=== PATIENT | female | born 1990 | race Caucasian/White ===

== ENCOUNTER → 2018-08-13 12:46 | Outpatient (CLI) | payer BC, SELFPAY ==
[2016-05-10 12:34] VITALS: BMI 30.5
[2018-08-13 14:15] LABS: Absolute Lymphocyte Count 1.57 X10^3/ul (0.83-4.51); Absolute Neutrophil Count 7.3 X10^3/uL (2.0-7.7); Basophil# 0.03 X10^3/uL; Basophil% 0.3 % (0-1); Eosinophil# 0.08 X10^3/uL; Eosinophils% 0.8 % (0-5); Hematocrit 41.8 % (37-47); Hemoglobin 14.1 g/dl (12.0-15.0); Lymphocyte # 1.57 X10^3/ul (4.0); Lymphocyte % 16.5 % (19-41); Mean Corp Hgb Conc 33.7 g/gl (32-36); Mean Corpuscular Hgb 28.3 pg (27.0-32.0); Mean Corpuscular Volume 83.9 fL (81-99); Mean Platelet Vol. 10.9 fl (6.2-12.0); Monocyte# 0.55 X10^3/uL; Monocyte% 5.8 % (0-10); Neutrophil # 7.26 X10^3/uL (2.7-7.7); Neutrophil % 76.4 % (47-70); Platelet Count 303 K/mm3 (150-450); RBC Distribution Width CV 13.8 % (11.6-14.6); RBC Distribution Width SD 42.5 fl (35.1-43.9); Red Blood Count 4.98 M/mm3 (4.2-5.4); White Blood Count 9.5 K/mm3 (4.4-11.0)
[2018-08-13 14:20] LABS: POSITIVE COUNT NO; POSITIVE DIFFERENTIAL NO; POSITIVE MORPHOLOGY NO
[2018-08-13 14:29] LABS: AST(SGOT) 8 U/L (15-37); Alanine Aminotransfer ALT/SGPT 16 U/L (13-56); Albumin, Serum 3.8 g/dL (3.2-5.0); Alkaline Phosphatase 72 U/L (45-117); Anion Gap 9 (5-15); BUN 11 mg/dL (7-18); Calcium,Total 8.6 mg/dL (8.5-10.1); Chloride 107 mmol/L (98-107); Creatinine, Serum 0.69 mg/dL (0.55-1.02); EST Glomerular Filtration Rate 106 mL/min (>60); Est Glom Filt Rate - Afr Amer 128 mL/min (>60); Globulin 3.9 g/dL (2.2-4.2); Glucose 95 mg/dL (74-106); Potassium 4.1 mmol/L (3.5-5.1); Protein, Total 7.7 g/dL (6.4-8.2); Sodium Level 139 mmol/L (136-145); Thyroid Stim Hormone (TSH) 2.99 uIU/mL (0.358-3.74)
== END ==
PROVIDERS: Family Provider Family Medicine; PCP Family Medicine; Referring Provider Nurse Practitioner Adult Health; Visit Provider Nurse Practitioner Adult Health
DX: R53.83 Other fatigue (principal)
CPT/HCPCS: 36415; 80053; 84443; 85025

== ENCOUNTER 2019-09-18 21:53 | Emergency (ER) | payer BC, SELFPAY ==
[2018-09-11 16:11] VITALS: BMI 30.5
[2019-09-18 21:54] VITALS: BP 144/78; PULSE 88; RESP 17; TEMP 36.2; O2SAT 99; BMI 37.9
--- NOTE | 2019-09-18 22:11 | CT_ITS ---
STUDY: CT ABDOMEN AND PELVIS WITHOUT CONTRAST REASON FOR EXAM: Female, 29 years old. RT FLANK PAIN -- HX:KIDNEY STONES,OVARIAN CYST RADIATION DOSAGE (If Supplied By Facility): CTDIvol = ( 19.66 ) mGy, DLP = ( 1046.26 ) mGycm TECHNIQUE: Transaxial images were obtained from the dome of the diaphragm to the symphysis pubis without oral contrast, and without intravenous contrast. Sagittal and coronal images were reconstructed. Individualized dose optimization techniques were used for this CT. COMPARISON: None. FINDINGS: The visualized lung bases are unremarkable. The visualized portions of the heart are within normal limits. Normal liver. Normal gallbladder and extrahepatic biliary system. Normal spleen. Normal pancreas. Normal bilateral adrenal glands. There is moderate right hydronephrosis and right hydroureter. There is a 2.7 mm calculus within the mid right ureter at the L3 level. There is small anterior umbilical hernia. Normal left kidney. No renal calculi Normal visualized stomach. Normal small intestine. There is moderate colonic fecal load. There are punctate appendicoliths otherwise normal appendix. No CT evidence for appendicitis Normal abdominal aorta. Normal inferior vena cava. Normal retroperitoneum. There are vascular calcifications within the pelvis. Normal urinary bladder. Normal abdominal wall. Normal osseous structures. CT/Abdomen/Pelvis without Cont IMPRESSION: moderate right hydronephrosis and right hydroureter. There is a 2.7 mm calculus within the mid right ureter at the L3 level Moderate colonic fecal load Punctate appendicoliths otherwise normal appendix, no evidence for appendicitis Electronically Signed: Jay Phillip, at 23:04 EDT Tel , Service support ,
--- NOTE | 2019-09-18 22:12 | ED.VIS.GEN ---
History of Present Illness Chief Complaint: Flank Pain Informant: Patient Onset: Today Narrative: Sudden right flank pain 45 minutes prior to arrival. Pain mildly radiates to the groin, states burning intense sensation. Mild nausea that is improving. Currently symptoms slightly improving. No history of kidney stones. Last menstrual period a month ago. Denies dysuria or frequency states that urine seems a little darker. No fevers chills or sweats. Denies any past medical history. Denies any surgical history. Prior similar symptoms: No Past Medical History - Allergies and Home Meds Allergies/Adverse Reactions: Allergies No Known Allergies Allergy (Verified 09/18/19 21:53) Primary Care Physician: Naeem Romero MD [Primary Care Provider] - Past Medical History: None Smoking Status: Former smoker Review of Systems General: Denies: Chills, Fever, Sweats Eyes: Denies: Visual changes - bilaterally, Diplopia ENT: Denies: Rhinorrhea, Sore throat Cardiovascular: Denies: Chest pain, Palpitations Respiratory: Denies: Dyspnea, Cough, Dyspnea on exertion Gastrointestinal: Denies: Abdominal pain, Nausea, Vomiting, Diarrhea, Melena, Hematochezia Genitourinary: Denies: Dysuria, Hematuria, Frequency Musculoskeletal: Reports: Back pain. Denies: Extremity Pain Skin: Denies: Rash, Wounds Neurological: Denies: Headache, Weakness, Numbness Physical Exam Vital Signs/Narrative: Vital Signs Temp Pulse Resp BP Pulse Ox 09/18/19 21:54 97.1 F L 88 17 144/78 H 99 Inital Vital Signs reviewed: Yes General: Well nourished, Well developed, No Acute Distress Head: Normocephalic, Atraumatic Eyes: Perrl, EOMI ENT: Moist mucous membranes, No rhinorrhea Neck: Supple, Nontender Cardiovascular: Regular rate, Regular rhythm, No murmurs Respiratory: No distress, CTA bilaterally, Chest nontender Abdomen: Soft, Nontender, Nondistended, Normal bowel sounds Back: Nontender, Normal Inspection. Negative for: CVA tenderness Extremities: Nontender, No edema Skin: Normal color, No rash Neurological: Alert, Oriented x3, Cranial nerves II-XII grossly intact, Normal Strength, Normal Sensation Psychological: Normal affect, Normal Mood Diagnostic/Tx/Re-eval Clinical Impression(s) from Imaging Studies Abdomen/Pelvis CT 09/18/19 22:11 IMPRESSION: moderate right hydronephrosis and right hydroureter. There is a 2.7 mm calculus within the mid right ureter at the L3 level Moderate colonic fecal load Punctate appendicoliths otherwise normal appendix, no evidence for appendicitis Electronically Signed: Jay Phillip, at 23:04 EDT Tel , Service support , Abnormal Lab Results 09/18/19 09/18/19 09/18/19 22:00 22:00 22:15 WBC 11.2 H RBC 4.48 Hgb 12.7 Hct 38.4 MCV 85.7 MCH 28.3 MCHC 33.1 RDW Std Deviation 40.2 RDW Coeff of Sumit 12.9 Plt Count 279 MPV 10.9 Immature Gran % (Auto) 0.400 Neut % (Auto) 64.8 Lymph % (Auto) 24.8 Noble % (Auto) 6.3 Eos % (Auto) 3.2 Baso % (Auto) 0.5 Absolute Neuts (auto) 7.2 Absolute Lymphs (auto) 2.77 Nucleated RBC % 0 Sodium Potassium Chloride Carbon Dioxide Anion Gap BUN Creatinine Estim Creat Clear Calc Est GFR (MDRD) Af Amer Est GFR (MDRD) Non-Af BUN/Creatinine Ratio Glucose Calcium Urine Color Yellow Urine Clarity Cloudy Urine pH 6.0 Ur Specific Wentworth 1.025 Urine Protein 30 H Urine Glucose (UA) Normal Urine Ketones 5 H Urine Occult Blood 250 H Urine Nitrite Negative Urine Bilirubin Negative Urine Urobilinogen 1 H Ur Leukocyte Esterase 25 H Urine RBC 50-100 SEEN Urine WBC 0-5 SEEN Ur Squamous Epith Cells 0-5 SEEN Urine Bacteria 0 SEEN Urine Mucus 0 SEEN Urine Test Negative 09/18/19 22:15 WBC RBC Hgb Hct MCV MCH MCHC RDW Std Deviation RDW Coeff of Sumit Plt Count MPV Immature Gran % (Auto) Neut % (Auto) Lymph % (Auto) Noble % (Auto) Eos % (Auto) Baso % (Auto) Absolute Neuts (auto) Absolute Lymphs (auto) Nucleated RBC % Sodium 138 Potassium 3.8 Chloride 109 H Carbon Dioxide 23.0 Anion Gap 6 BUN 12 Creatinine 0.73 Estim Creat Clear Calc 104.53 Est GFR (MDRD) Af Amer 119 Est GFR (MDRD) Non-Af 99 BUN/Creatinine Ratio 16.5 Glucose 96 Calcium 8.5 Urine Color Urine Clarity Urine pH Ur Specific Wentworth Urine Protein Urine Glucose (UA) Urine Ketones Urine Occult Blood Urine Nitrite Urine Bilirubin Urine Urobilinogen Ur Leukocyte Esterase Urine RBC Urine WBC Ur Squamous Epith Cells Urine Bacteria Urine Mucus Urine Test - Medical Decision Making Patient nontoxic. Sudden symptoms renal stone protocol initiated. Symptoms relieved with Toradol. Labs are stable urine noted hematuria. There was leukocytes however negative nitrites or white blood cells. I did send for urine. CT scan confirms a 2.7 mm mid ureteral stone with hydro. Patient be sent home with urine strainer prescription for medications for symptom control. Follow-up with urology. Strict signs and symptoms discussed to return. All questions were answered. ED Disposition - Plan for ED Patient: Disposition: Home or Assisted Living Diagnosis: Urolithiasis, Hematuria Instructions: ED Hematuria, ED Renal Stone w Colic Prescriptions: Ibuprofen 600 mg PO 4X/DAY PRN #20 tab PRN Reason: Pain Or Fever Transmission Status: Pending to [id number] Oxycodone HCl/Acetaminophen [Percocet 5/325] 1 tablet PO Q6H PRN PRN 3 Days #12 tablet PRN Reason: Pain Transmission Status: Sent to [id number] Ondansetron [Zofran Odt] 4 mg PO Q8H PRN PRN #10 tab PRN Reason: Nausea Transmission Status: Pending to [id number] Referrals: Naeem Romero MD [Primary Care Provider] - Pat Pedraza MD [STAFF PHYSICIAN] - 3-5 Days
[2019-09-18] MEDS: Ketorolac 30 MG/ML Syringe IV (22:20)
[2019-09-18] MEDS: 0.9% Normal Saline 1,000 ML 250 ML IV (22:20)
[2019-09-18 22:22] LABS: Bacteria 0 SEEN /hpf (None Seen); Mucous, Urine 0 SEEN /hpf (<or=2+)
[2019-09-18 22:23] LABS: Absolute Lymphocyte Count 2.77 X10^3/uL (0.83-4.51); Absolute Neutrophil Count 7.2 X10^3/uL (2.0-7.7); Basophil# 0.06 X10^3/uL; Basophil% 0.5 % (0-1); Eosinophil# 0.36 X10^3/uL; Eosinophils% 3.2 % (0-5); Hematocrit 38.4 % (37-47); Hemoglobin 12.7 g/dL (12.0-15.0); Lymphocyte # 2.77 X10^3/ul (4.0); Lymphocyte % 24.8 % (19-41); Mean Corp Hgb Conc 33.1 g/dL (32-36); Mean Corpuscular Hgb 28.3 pg (27.0-32.0); Mean Corpuscular Volume 85.7 fL (81-99); Mean Platelet Vol. 10.9 fl (6.2-12.0); Monocyte% 6.3 % (0-10); NRBC Flagged by Analyzer 0 % (0-5); Neutrophil # 7.22 X10^3/uL (2.7-7.7); Neutrophil % 64.8 % (47-70); Platelet Count 279 K/mm3 (150-450); RBC Distribution Width CV 12.9 % (11.6-14.6); RBC Distribution Width SD 40.2 fl (35.1-43.9); Red Blood Count 4.48 M/mm3 (4.2-5.4); White Blood Count 11.2 K/mm3 (4.4-11.0)
[2019-09-18 22:24] LABS: Color, Urine Yellow (Yellow); Glucose, Dipstick Normal (Normal); Ketone-Dipstick 5 mg/dl (Negative); Leukocyte Esterase-Dipstick 25 /ul (Negative); Nitrite-Dipstick Negative (Negative); Occult Blood-Urine 250 /ul (Negative); Protein-Dipstick 30 mg/dl (Negative); Specific Gravity, Urine 1.025 (1.002-1.030); Urine Bilirubin Dipstick Negative (Negative); Urine Clarity Cloudy (Clear); Urine Urobilinogen 1 mg/dl (Normal)
[2019-09-18 22:26] LABS: Internal QC Validated? YES +Cl - CLEAR BKGD; Pregnancy, Urine Negative Negative
[2019-09-18 22:36] LABS: Red Blood Cells-Urine 50-100 SEEN /hpf (0-5); Squamous Epithelial Cells - UA 0-5 SEEN /hpf (5-10); White Blood Cells 0-5 SEEN /hpf (0-5)
[2019-09-18 22:41] LABS: Anion Gap 6 (5-15); BUN 12 mg/dL (7-18); BUN/Creat Ratio 16.5 RATIO (10-20); Calcium,Total 8.5 mg/dL (8.5-10.1); Chloride 109 mmol/L (98-107); Creatinine, Serum 0.73 mg/dL (0.55-1.02); EST Glomerular Filtration Rate 99 mL/min (>60); Est Glom Filt Rate - Afr Amer 119 mL/min (>60); Estimated Creatinine Clearance 104.53 ml/min; Glucose 96 mg/dL (74-106); Potassium 3.8 mmol/L (3.5-5.1); Sodium Level 138 mmol/L (136-145)
[2019-09-18 23:47] VITALS: BP 136/70; PULSE 85; RESP 16; O2SAT 97
== END 2019-09-18 23:52 | disposition home or self-care (01) ==
PROVIDERS: Emergency Provider Emergency Medicine; PCP Family Medicine
DX: N13.2 Hydronephrosis with renal and ureteral calculous obstruction (principal); Z87.891 Personal history of nicotine dependence
CPT/HCPCS: 74176; 80048; 81001; 81025; 85025; 87086; 87088; 96361; 96374; 99283; J7030; A4216

== ENCOUNTER → 2019-09-24 12:04 | Outpatient (CLI) | payer BC, SELFPAY ==
[2019-09-18 21:54] VITALS: BMI 37.9
[2019-09-24 15:47] LABS: AST(SGOT) 6 U/L (15-37); Alanine Aminotransfer ALT/SGPT 14 U/L (13-56); Albumin, Serum 3.8 g/dL (3.2-5.0); Alkaline Phosphatase 78 U/L (45-117); Anion Gap 8 (5-15); BUN 12 mg/dL (7-18); Calcium,Total 8.5 mg/dL (8.5-10.1); Chloride 105 mmol/L (98-107); Creatinine, Serum 0.71 mg/dL (0.55-1.02); EST Glomerular Filtration Rate 102 mL/min (>60); Est Glom Filt Rate - Afr Amer 124 mL/min (>60); Glucose 88 mg/dL (74-106); Potassium 3.6 mmol/L (3.5-5.1); Protein, Total 7.8 g/dL (6.4-8.2); Sodium Level 138 mmol/L (136-145)
[2019-09-24 15:50] LABS: Absolute Lymphocyte Count 2.05 X10^3/uL (0.83-4.51); Absolute Neutrophil Count 5.6 X10^3/uL (2.0-7.7); Basophil# 0.05 X10^3/uL; Basophil% 0.6 % (0-1); Eosinophil# 0.34 X10^3/uL; Hematocrit 43.2 % (37-47); Lymphocyte # 2.05 X10^3/ul (4.0); Lymphocyte % 24.2 % (19-41); Mean Corp Hgb Conc 32.4 g/dL (32-36); Mean Corpuscular Hgb 28.3 pg (27.0-32.0); Mean Corpuscular Volume 87.4 fL (81-99); Mean Platelet Vol. 11.6 fl (6.2-12.0); Monocyte# 0.45 X10^3/uL; Monocyte% 5.3 % (0-10); NRBC Flagged by Analyzer 0 % (0-5); Neutrophil # 5.56 X10^3/uL (2.7-7.7); Neutrophil % 65.5 % (47-70); Platelet Count 295 K/mm3 (150-450); RBC Distribution Width CV 13.2 % (11.6-14.6); RBC Distribution Width SD 41.1 fl (35.1-43.9); Red Blood Count 4.94 M/mm3 (4.2-5.4); White Blood Count 8.5 K/mm3 (4.4-11.0)
[2019-09-25 09:52] LABS: Hepatitis B Surface Antibody Non-Reactive; Hepatitis B Surface Antigen Non-Reactive (Nonreactive); Hepatitis C Antibody Non-Reactive (Nonreactive)
[2019-09-29 20:05] LABS: QNTFERON TB Mitogen Value 8.16 IU/mL (.); QNTFERON TB Nil Value 0.02 IU/mL (.); QNTFERON TB1+ Ag Value 0.01 IU/mL (.); QNTFERON TB2+ Ag Value 0.03 IU/mL (.)
[2019-09-30 00:40] LABS: Hepatitis B Core Ab Total Negative (Negative); QNTIFERON TB Positive Criteria Negative (Negative)
== END ==
PROVIDERS: PCP Family Medicine; Referring Provider Dermatology; Visit Provider Dermatology
DX: L40.0 Psoriasis vulgaris (principal); D48.5 Neoplasm of uncertain behavior of skin
CPT/HCPCS: 36415; 80053; 85025; 86480; 86704; 86706; 86803; 87340

== ENCOUNTER → 2020-08-11 | Outpatient (CLI) | payer BC, SELFPAY | END | disposition home or self-care (01) | LOC: LABSPEC 15:13 | PROVIDERS: PCP Family Medicine; Referring Provider Family Medicine; Visit Provider Family Medicine | DX: N39.0 Urinary tract infection, site not specified (principal) | CPT/HCPCS: 87086; 87088 ==

== ENCOUNTER 2021-06-01 12:28 | Outpatient (CLI) | payer BC, SELFPAY ==
[2021-06-01 15:52] LABS: Anion Gap 6 (5-15); BUN 10 mg/dL (7-18); BUN/Creat Ratio 13.8 RATIO (10-20); Calcium,Total 8.7 mg/dL (8.5-10.1); Chloride 105 mmol/L (98-107); Cholesterol 210 mg/dL (200); Creatinine, Serum 0.73 mg/dL (0.55-1.02); EST Glomerular Filtration Rate 98 mL/min (>60); Est Glom Filt Rate - Afr Amer 118 mL/min (>60); Glucose 111 mg/dL (74-106); High Density Lipoprotein 48 mg/dL; Potassium 3.9 mmol/L (3.5-5.1); Sodium Level 137 mmol/L (136-145); Thyroid Stim Hormone (TSH) 3.26 uIU/mL (0.358-3.74); Triglycerides 115 mg/dL; Very Low Density Lipoprotein 23 mg/dL (5-40)
== END 2021-06-01 23:59 | disposition home or self-care (01) ==
LOC: MFPLAB 12:31
PROVIDERS: PCP Family Medicine; Referring Provider Family Medicine; Visit Provider Family Medicine
DX: E66.9 Obesity, unspecified (principal)
CPT/HCPCS: 36415; 80048; 80061; 82533; 84443

== ENCOUNTER 2021-07-13 10:01 | Outpatient (RCR) | payer BC, SELFPAY | END 2021-07-16 23:59 | LOC: NS 10:01 | PROVIDERS: PCP Family Medicine; Visit Provider Family Medicine | DX: Z71.3 Dietary counseling and surveillance (principal); E66.9 Obesity, unspecified; Z68.39 Body mass index [BMI] 39.0-39.9, adult | CPT/HCPCS: 97802 ==

== ENCOUNTER 2021-09-10 23:06 | Emergency (ER) | payer BC, SELFPAY ==
[2021-09-10 23:07] VITALS: BP 143/82; PULSE 104; RESP 20; TEMP 35.7; O2SAT 99; BMI 40.8
--- NOTE | 2021-09-10 23:13 | ED.VIS.LOWEX ---
HPI History of Present Illness HPI Narrative: Patient presents with left foot injury that occurred tonight. Patient states she twisted her left foot and fell. Patient states her pain is mainly over the lateral aspect of the left foot over the fifth metatarsal area. Patient states she fell onto her right leg and has an abrasion to the lateral aspect of the right upper leg. Patient is unsure of her last tetanus. Patient states her foot pain is worse with dorsiflexion. Patient denies any paresthesias or weakness. Patient denies any other injuries. Chief Complaint: Lower Extremity Injury Informant: patient Occured/Mechanism Mechanism/Context: Yes fall Onset/Context/Timing Onset: Today Context: Sudden Onset Location: Left foot Worsened by: Weightbearing, movement Relieved by: Rest Associated Symptoms Associated Symptoms: Negative for Parasthesia, Weakness or Loss of Funtion Narrative Tetanus Immunization: >10 years PFSH [facility] Medical History Psoriasis Home Medications tildrakizumab-asmn 100 mg/mL subcutaneous syringe (Meumya) mg subcut 09/10/21 [History Last Taken Unknown] Allergy/AdvReac Type Severity Reaction Status Date / Time No Known Allergies Allergy Verified 09/18/19 21:53 Surgical History no surgical history no surgical history Social History Smoking Status: Former smoker ROS ROS ED Constitutional Constitutional ED: Denies chills or fever(s) Eyes Eyes: Denies blurry vision or change in vision ENT ENT ED: Denies rhinorrhea or sore throat Cardiovascular Cardiovascular: Denies chest pain or palpitations Respiratory/Chest Respiratory/Chest: Denies cough or dyspnea Gastrointestinal Gastrointestinal: Denies nausea or vomiting Genitourinary Genitourinary ED: Denies dysuria or hematuria Musculoskeletal Musculoskeletal: Denies back pain or neck pain Integumentary Denies abscess or rash Neurologic Neurologic: Denies headache(s) or weakness Allergic/Immunologic Allergic/Immunologic ED: Denies mouth swelling or urticaria EXAM Physical Exam Const Vital Signs: 09/10/21 23:07 Temperature 96.2 F L Temperature Source Temporal Pulse Rate 104 H Respiratory Rate 20 H Blood Pressure 143/82 H Blood Pressure Mean 102 Pulse Ox 99 Oxygen Delivery Method Room Air Positive well nourished, well developed and obese General Appearance ED: well developed and NAD Nutritional Appearance: obese HEENT Reports moist mucous membranes Extremity Extremity Narrative: There is tenderness over the fourth and fifth metatarsals. There is no edema or ecchymosis. There is no bony crepitance or step-off. There is no tenderness over the distal fibula. There is no tenderness over the proximal fibula. Pedal pulses are equal bilaterally. Range of motion was slightly limited in dorsiflexion of the left ankle secondary to pain. Sensation was intact to light touch in all digits. Capillary refill was less than 2 seconds in all digits. There is a superficial abrasion over the anterior lateral aspect of the right upper fabian. There is no active bleeding. There is no erythema or warmth. There are no foreign bodies noted. Neuro oriented x3, CN's II-XII intact bilaterally, moves all extremities and no sensory deficits noted Sensorium / Orientation: alert Motor Exam: strength 5/5 throughout MDM MDM MDM Narrative Medical decision making narrative: Patient was given a tetanus booster. X-rays of the left foot were obtained. There are 3 views. On my interpretation, there is no acute fracture. There is no dislocation. There is no soft tissue swelling. Radiologist also interpreted the x-rays and agrees. Patient was advised of her findings. Patient was instructed to ice and elevate the left foot. Patient was given a walking boot. Patient was instructed to follow-up with her primary care physician in 5 to 7 days. Patient understood and was agreeable with the plan. All questions were answered. Radiography Diagnostic Testing: Clinical Impression(s) from Imaging Studies Foot X-Ray 09/10/21 23:30 IMPRESSION: No demonstrated fracture or malalignment. Electronically Signed: Robbie Gao MD (Brooks) at 23:51 EDT Reading Location ID and State: [facility] / [place] , Service support , Discharge Plan Triage Chief Complaint: Lower Extremity Injury ED Provider: Nima Rosario Dx/Rx/DC Orders Clinical Impression: Sprain of left foot, Abrasion of right lower leg Instructions: ED Abrasion, ED Foot Sprain Prescriptions: No Action Ilumya 100 mg/mL Syringe SUBCUT Rx Instructions: [id number] Primary Care Provider: Naeem Romero Referrals: Naeem Romero MD [Primary Care Provider] - 5-7 Days Disposition Disposition: Home, Self Care
--- NOTE | 2021-09-10 23:30 | RAD_ITS ---
STUDY: X-RAY - LEFT FOOT CLINICAL: Female, 31 years old. Injury/Pain TECHNIQUE: 30 view(s) of the foot. COMPARISON: None. FINDINGS: Normal talus, calcaneus, and tarsal bones. Normal visualized subtalar, talonavicular, calcaneocuboid, tarsal and tarsometatarsal articulations. Normal metatarsi. Normal metatarsophalangeal joint of the great toe. There is a bipartite tibial sesamoid. Normal interphalangeal joint of the great toe. Normal phalanges of the great toe. Normal second through fifth metatarsophalangeal joints. Normal interphalangeal joints and phalanges of the lesser toes. The soft tissue structures are unremarkable. RAD/Foot min 3 Views IMPRESSION: No demonstrated fracture or malalignment. Electronically Signed: Robbie Gao MD (Brooks) at 23:51 EDT ,
[2021-09-11 00:32] VITALS: BP 138/67; PULSE 79; RESP 18; O2SAT 95
== END 2021-09-11 00:32 | disposition home or self-care (01) ==
PROVIDERS: Emergency Provider Emergency Medicine; PCP Family Medicine; Visit Provider Emergency Medicine
DX: S93.602A Unspecified sprain of left foot, initial encounter (principal); Z68.41 Body mass index [BMI] 40.0-44.9, adult; S80.812A Abrasion, left lower leg, initial encounter; X50.1XXA Overexertion from prolonged static or awkward postures, initial encounter; W19.XXXA Unspecified fall, initial encounter; E66.9 Obesity, unspecified; Z87.891 Personal history of nicotine dependence; Z23 Encounter for immunization
CPT/HCPCS: 73630; 90471; 99284

== ENCOUNTER 2021-12-14 13:03 | Outpatient (RCR) | payer BC, SELFPAY | END 2021-12-16 23:59 | LOC: NS 13:03 | PROVIDERS: PCP Family Medicine; Referring Provider Family Medicine; Visit Provider Family Medicine | DX: Z71.3 Dietary counseling and surveillance (principal); E66.9 Obesity, unspecified; Z68.39 Body mass index [BMI] 39.0-39.9, adult | CPT/HCPCS: 97803 ==

== ENCOUNTER → 2022-02-21 | Outpatient (CLI) | payer BC, SELFPAY ==
[2022-02-24 08:09] LABS: QNTFERON TB Mitogen Value > 10.00 IU/mL (.); QNTFERON TB Nil Value 0.02 IU/mL (.); QNTFERON TB1+ Ag Value 0.02 IU/mL (.); QNTFERON TB2+ Ag Value 0.01 IU/mL (.)
[2022-02-24 13:33] LABS: Hepatitis B Core Ab Total Negative (Negative); QNTIFERON TB Positive Criteria Negative (Negative)
== END | disposition home or self-care (01) ==
LOC: MTLAB 09:18
PROVIDERS: PCP Family Medicine; Referring Provider Dermatology; Visit Provider Dermatology
DX: L40.0 Psoriasis vulgaris (principal)
CPT/HCPCS: 36415; 86480; 86704

== ENCOUNTER → 2022-11-30 | Outpatient (CLI) | payer BC, SELFPAY ==
[2022-11-30 10:40] LABS: Absolute Lymphocyte Count 2.37 X10^3/uL (0.83-4.51); Absolute Neutrophil Count 7.8 X10^3/uL (2.0-7.7); Basophil# 0.06 X10^3/uL; Basophil% 0.5 % (0-1); Eosinophil# 0.22 X10^3/uL; Hematocrit 43.6 % (37-47); Lymphocyte # 2.37 X10^3/ul (0.83-4.51); Lymphocyte % 21.1 % (19-41); Mean Corp Hgb Conc 32.1 g/dL (32-36); Mean Corpuscular Hgb 28.1 pg (27.0-32.0); Mean Corpuscular Volume 87.4 fL (81-99); Mean Platelet Vol. 10.8 fl (6.2-12.0); Monocyte% 6.2 % (0-10); NRBC Flagged by Analyzer 0 % (0-5); Neutrophil # 7.78 X10^3/uL (2.7-7.7); Neutrophil % 69.4 % (47-70); Platelet Count 349 K/mm3 (150-450); RBC Distribution Width CV 13.2 % (11.6-14.6); RBC Distribution Width SD 41.7 fl (35.1-43.9); Red Blood Count 4.99 M/mm3 (4.2-5.4); White Blood Count 11.2 K/mm3 (4.4-11.0)
[2022-11-30 11:15] LABS: Vitamin D,25 Hydroxy 15.8 ng/mL
[2022-11-30 11:28] LABS: Anion Gap 4 (5-15); BUN 12 mg/dL (7-18); BUN/Creat Ratio 16.6 RATIO (10-20); Calcium,Total 8.6 mg/dL (8.5-10.1); Chloride 107 mmol/L (98-107); Cholesterol 200 mg/dL (200); Creatinine, Serum 0.72 mg/dL (0.55-1.02); EST Glomerular Filtration Rate 97 mL/min (>60); Est Glom Filt Rate - Afr Amer 118 mL/min (>60); Glucose 101 mg/dL (74-106); High Density Lipoprotein 48 mg/dL; Sodium Level 136 mmol/L (136-145); T4 Free Direct 1.04 ng/dL (0.76-1.46); Thyroid Stim Hormone (TSH) 6.47 uIU/mL (0.358-3.74); Triglycerides 92 mg/dL; Very Low Density Lipoprotein 18 mg/dL (5-40)
== END | disposition home or self-care (01) ==
LOC: MTLAB 09:19
PROVIDERS: PCP Family Medicine; Visit Provider Family Medicine
DX: Z13.220 Encounter for screening for lipoid disorders (principal); Z13.1 Encounter for screening for diabetes mellitus; R53.83 Other fatigue
CPT/HCPCS: 36415; 80048; 80061; 82306; 83036; 84439; 84443; 85025

== ENCOUNTER → 2023-01-16 | Outpatient (CLI) | payer BC, SELFPAY ==
[2023-01-16 17:36] LABS: Absolute Lymphocyte Count 2.56 X10^3/uL (0.83-4.51); Absolute Neutrophil Count 8.8 X10^3/uL (2.0-7.7); Basophil# 0.09 X10^3/uL; Basophil% 0.7 % (0-1); Eosinophil# 0.19 X10^3/uL; Eosinophils% 1.5 % (0-5); Hematocrit 40.1 % (37-47); Lymphocyte # 2.56 X10^3/ul (0.83-4.51); Lymphocyte % 20.9 % (19-41); Mean Corp Hgb Conc 32.4 g/dL (32-36); Mean Corpuscular Hgb 28.1 pg (27.0-32.0); Mean Corpuscular Volume 86.6 fL (81-99); Mean Platelet Vol. 10.5 fl (6.2-12.0); Monocyte% 4.9 % (0-10); NRBC Flagged by Analyzer 0 % (0-5); Neutrophil # 8.76 X10^3/uL (2.7-7.7); Neutrophil % 71.5 % (47-70); Platelet Count 379 K/mm3 (150-450); RBC Distribution Width CV 13.2 % (11.6-14.6); RBC Distribution Width SD 40.7 fl (35.1-43.9); Red Blood Count 4.63 M/mm3 (4.2-5.4); White Blood Count 12.3 K/mm3 (4.4-11.0)
[2023-01-16 17:59] LABS: Vitamin D,25 Hydroxy 30.9 ng/mL
[2023-01-16 18:23] LABS: Free T3 2.7 pg/mL (2.18-3.98); T4 Free Direct 1.03 ng/dL (0.76-1.46); Thyroid Stim Hormone (TSH) 5.25 uIU/mL (0.358-3.74)
[2023-01-28 00:06] LABS: Anti-Thyroglobulin AB 2.4 IU/mL (0.0-0.9); Thyroglobulin RIA 24 ng/mL (.); Thyroid Peroxidase AB 249 IU/mL (0-34); Thyroid Stim Immunoglob <0.10 IU/L (0.00-0.55)
== END | disposition home or self-care (01) ==
LOC: MTLAB 14:34
PROVIDERS: PCP Family Medicine; Referring Provider Family Medicine; Visit Provider Family Medicine
DX: E55.9 Vitamin D deficiency, unspecified (principal); R53.83 Other fatigue
CPT/HCPCS: 36415; 82306; 84432; 84439; 84443; 84445; 84481; 85025; 86376; 86800

== ENCOUNTER → 2023-05-09 | Outpatient (CLI) | payer BC, SELFPAY ==
--- NOTE | 2023-05-09 14:14 | BI_ITS ---
MAMMOGRAPHY - BILATERAL DIAGNOSTIC REASON FOR EXAM: Female, 33 years old. Right breast lump. PERTINENT HISTORY: Non-contributory. TECHNIQUE: Digital bilateral breast syl (3D mammographic acquisition) in the CC and MLO projections. 2-D mediolateral oblique (MLO) and craniocaudad (CC) views of both breasts were obtained. CAD: Full Field Digital Mammography with Computer Added Detection was performed. COMPARISON: None. Baseline examination. FINDINGS: Breast Composition: The breasts are extremely dense, which lowers the sensitivity of mammography. There is a 3 cm x 2.3 cm well-defined nodule in the upper lateral aspect of the right breast corresponding to the palpable lump. Correlation with ultrasound is recommended. Benign-appearing bilateral axillary lymph nodes. No other significant abnormalities are identified. BI/DIAG MAMM W/CAD, BILAT IMPRESSION: The palpable lump in the right breast corresponds to a 3 cm x 2.3 cm well-defined nodule. Correlation with ultrasound is recommended for further evaluation. ASSESSMENT CATEGORY: BIRADS Category 0: Incomplete. Need additional imaging evaluation. A letter regarding these results will be sent to the patient by the facility within 30 days. Approximately 10% of breast cancers are not detected by mammography. A normal mammogram should not delay biopsy of a clinically suspicious abnormality. Electronically Signed: Alex Alvarado MD at 15:36 EST ,
--- NOTE | 2023-05-09 14:14 | US_ITS ---
STUDY: ULTRASOUND BREAST - RIGHT REASON FOR EXAM: Female, 33 years old. Right palpable lump. TECHNIQUE: Axial and longitudinal images of the RIGHT breast were performed with a high resolution ultrasound transducer. # OF IMAGES: 26 COMPARISON: Comparison is made with prior mammogram done earlier today. FINDINGS: RIGHT Breast: The palpable lump corresponds to a 3.3 cm x 3.3 cm x 1.8 cm hypoechoic irregular nodule at the 10:00 position in the breast at 4 cm from the nipple. Internal vascularity is seen. Biopsy recommended. US/Breast Limited Unilateral IMPRESSION: Hypoechoic irregular nodule at the 10:00 position of the breast at 4 cm from nipple. Internal vascularity is seen. This may be a fibroadenoma. Biopsy recommended. ASSESSMENT CATEGORY: BIRADS Category 4: Suspicious - Biopsy Should Be Considered. A letter regarding these results will be sent to the patient by the facility within 30 days. Electronically Signed: Alex Alvarado MD at 10:25 EST ,
== END | disposition home or self-care (01) ==
LOC: OPBI 14:14
PROVIDERS: PCP Family Medicine; Referring Provider Family Medicine; Visit Provider Family Medicine
DX: N63.11 Unspecified lump in the right breast, upper outer quadrant (principal)
CPT/HCPCS: 76642; 77062; 77066; G0279

== ENCOUNTER → 2023-05-16 | Outpatient (CLI) | payer BC, SELFPAY ==
--- NOTE | 2023-05-15 | BRBX_PTH ---
PATHOLOGY RESULTS PATIENT: ASTON BIGGS LOC: [facility] #:[id number] AGE/SX: 33/F ROOM: RE05/16/[address]: Dr. Nadeem Sweet MD : 1990 BED: DIS: 05/16/2023 SPEC #: [id number] RECD: 05/16/23 07:52 STATUS: MATT THOMAS #: [id number] EMILY: 05/15/23 00:[address]: Nadeem Sweet DEPT: SURGICAL PATHOLOGY RECD BY: Jared Damon ENTERED: 05/16/23 09:17 SP TYPE: BREAST BX OTHR DR: Grecia Logan DO Tissues: Right breast, NOS Procedures: Surgery Specimen Level IV HEADER OPERATION: Needle core biopsy of right breast nodule PRE-OP DIAGNOSIS: Right breast nodule TISSUE SUBMITTED: Right breast nodule MICROSCOPIC DIAGNOSIS Right breast mass, core biopsy: Fibroadenoma. AM:leda 05/17/2023 COMMENT Case has been reviewed in consultation with Dr. Brown who concurs with the above diagnosis. IDC:[id number] MICROSCOPIC DESCRIPTION Slides are reviewed. GROSS DESCRIPTION Received in fixative is one container labeled with the patient's name and designated right breast. The specimen consists of multiple elongated fragments of cortez-yellow fibroadipose tissue that in aggregate measure 1.5 x 0.5 x 0.1 cm. The entire specimen is submitted in one cassette. / RODRIGUE:leda 05/16/2023 TC:5 CPT: 94393
--- OUTSIDE RECORDS SUMMARY | 2023-05-16 08:17 | XMS RPT_ITS | CCD ---
Author Name Unknown Address [address] [place] [address] [place] [address] Organization [facility] Care Team Providers Care Atomic Spectroscopist Name Role Phone Juanita Logan DO Primary Care Provider Medications Completed/Discontinued Medications Medication Drug Class(es) Dates Sig (Normalized) Sig (Original) semaglutide (OZEMPIC SUBCUTANEOUS) (1 source) semaglutide (OZE MPIC SUBCUTANEOUS) Inject subcutaneously. 0 Active Problems Problem Classification Problem Date Documented Da te Episodic/Chronic Other upper respiratory infections (1 source) Viral upper respiratory tract infection; Translations: [Acute upper respiratory infection, unspecified] 05-07-2023 Episodic Results Test Name Value Interpretation Reference Range Facil ity Vital Signs Date Time Vital Sign Value Performing Clinician Brandie ospina 05-07-2023 09:33-0500 Body temperature 99 [degF] Bryce Athy PA-C Work Phone: [facility] 05-07-2023 09:33-0500 Body weight 106.41 kg Bryce Athy PA-C Work Phone: [facility] 05-07-2023 09:33-0500 Diastolic blood pressure 90 mm[Hg] Bryce Athy PA-C Work Phone: [facility] 05-07-2023 09:33-0500 Heart rate 85 /min Bryce Athy PA-C Work Phone: [facility] 05-07-2023 09:33-0500 Respiratory rate 21 /min Bryce Athy PA-C Work Phone: [facility] 05-07-2023 09:33-0500 SaO2% (BldA) [Mass fraction] 98 % Bryce Athy PA-C Work Phone: [facility] 05-07-2023 09:33-0500 Systolic blood pressure 126 mm[Hg] Bryce Kirby PA-C Work Phone: [facility] Encounters Encounter Date Encounter Type Care Provider Facility Start: 05-07-2023 End: 05-07-2023 ambulatory JUANITA LOGAN Facility:[facility] Start: 05-07-2023 End: 05-07-2023 Patient encounter procedure Bryce Kirby PA-C Work Phone: [facility] Plan of Treatment Date Care Activity Detail Author Start: 03-19-2023 Depression Assessment Depression Assessment [facility] Start: 11-17-2022 Covid-19 Vaccine () Covid-19 Vaccine () [facility] Start: 11-17-2022 Influenza vaccination Influenza Vaccine (#1) [facility] Start: 02-03-2018 Screening for malignant neoplasm of cervix HPV Testing [facility] Start: 02-03-2009 Screening for malignant neoplasm of cervix Pap Testing [facility] Start: 02-03-2007 Urine microalbumin profile DTaP,Tdap,Td Vaccine (1 - Tdap) [facility] Start: 02-03-2006 Hepatitis C screening Hepatitis C Screening [facility] Start: 02-03-2006 HIV screening HIV Screening [facility] Start: 1990 Hepatitis B Vaccine (1 of 3 - 3-dose series) Hepatitis B Vaccine (1 of 3 - 3-dose series) [facility] COVID & INFLUENZA A/ B & RSV NAAT, ROUTINE COVID & INFLUENZA A/B & RSV NAAT, ROUTINE Microbiology Routine Viral URI 05/07/2023 9:43 AM EST [facility] Work Phone: [facility] Payers Date Payer Category Payer Unknown [employer] BLUE CARD PPO OOS [id number] 2016-Present [phone] [address] [place] [address] PPO [id number] 2016 Unknown [id number] Social History Date Type Detail Facility Start: 05-07-2023 Tobacco smoking stat us NHIS Ex-smoker [facility] History of tobacco use Current smoker [facility] History of tobacco use Cigarette Smoker [facility] Start: 05-07-2023 Cigarettes smoked cu rrent (pack per day) - Reported 0.5 [facility] History of tobacco use Passive smoker [facility] Start: 05-07-2023 Tobacco use and exposure Smoke less tobacco non-user [facility] Start: 05-07-2023 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 Author Type: Physician Machine Group Leader Type: Progress Notes Filed: 05/07/2023 09:55 Note Text: This note was created using [employer]. Subjective Luisa Guevara is a 33 year old female. HPI Presents with cough, sore throat, headache diarrhea for 2 days. She felt feverish. She states she has had some sinus pressure. She tried some Robitussin but did not seem to help much. No chest pain or shortness of breath. No home COVID test done. Review of Systems Constitutional: Positive for fatigue and fever. HENT: Positive for congestion, sinus pressure and sore throat. Negative for ear pain and sinus pain. Respiratory: Positive for cough. Negative for shortness of breath. Cardiovascular: Negative. Gastrointestinal: Negative. Genitourinary: Negative. Musculoskeletal: Positive for myalgias. Neurological: Positive for headaches. All other systems reviewed and are negative. PAST MEDICAL HISTORY Diagnosis Date NEGATIVE MEDICAL HISTORY Current Outpatient Medications Medication Sig Dispense Refill semaglutide (OZEMPIC SUBCUTANEOUS) Inject subcutaneously. No current facility-administered medications for this visit. PAST SURGICAL HISTORY Procedure Laterality Date NONE FAMILY HISTORY Problem Relation Age of Onset Breast Cancer Maternal Aunt Cancer Maternal Aunt BRAIN Cancer Paternal Uncle BONE MARROW Heart Maternal Grandfather Alcohol/Drug Father Allergies Mother Diabetes Maternal Grandmother Social History Tobacco Use Smoking status: Former Packs/day: 0.50 Years: 1.00 Additional pack years: 0.00 Total pack years: 0.50 Types: Cigarettes Passive exposure: Past Smokeless tobacco: Never Substance Use Topics Alcohol use: No Drug use: No Objective BP 126/90 Pulse 85 Temp 37.2 ?C (99 ?F) Resp 21 Wt 106.4 kg (234 lb 9.6 oz) LMP 05/10/2006 SpO2 98% Physical Exam Vitals reviewed. Constitutional: Appearance: Normal appearance. HENT: Head: Normocephalic and atraumatic. Right Ear: Tympanic membrane, ear canal and external ear normal. Left Ear: Tympanic membrane, ear canal and external ear normal. Nose: Congestion present. Mouth/Throat: Mouth: Mucous membranes are moist. Pharynx: Oropharynx is clear. Cardiovascular: Rate and Rhythm: Normal rate and regular rhythm. Heart sounds: Normal heart sounds. Pulmonary: Effort: Pulmonary effort is normal. Breath sounds: Normal breath sounds. Musculoskeletal: Cervical back: Neck supple. Lymphadenopathy: Cervical: Cervical adenopathy present. Skin: General: Skin is warm and dry. Findings: No rash. Neurological: General: No focal deficit present. Mental Status: She is alert. Assessment and Plan ASSESSMENT/PLAN: 1. Viral URI - ICD9: 465.9, ICD10: J06.9 - Discussed viral etiology and rationale for treatment. - Symptomatic treatment with prn analgesia - Supportive care with fluids and rest - The patient may also use OTC cough and cold meds as needed. - COVID AND INFLUENZA A/B AND RSV NAAT, ROUTINE Bryce Kirby PA-C [facility] History of Present illness Narrative 05-07-2023 Bryce Kirby PA-C - 05/07/2023 9:53 AM EST Note Date & Type Note Facility 05-07-2023 History of Presen t illness Narrative This note was created using Linkuater. Subjective Luisa Guevara is a 33 year old female. HPI Presents with cough, sore throat, headache diarrhea for 2 days. She felt feverish. She states she has had some sinus pressure. She tried some Robitussin but did not seem to help much. No chest pain or shortness of breath. No home COVID test done. Review of Systems Constitutional: Positive for fatigue and fever. HENT: Positive for congestion, sinus pressure and sore throat. Negative for ear pain and sinus pain. Respiratory: Positive for cough. Negative for shortness of breath. Cardiovascular: Negative. Gastrointestinal: Negative. Genitourinary: Negative. Musculoskeletal: Positive for myalgias. Neurological: Positive for headaches. All other systems reviewed and are negative. PAST MEDICAL HISTORY Diagnosis Date NEGATIVE MEDICAL HISTORY Current Outpatient Medications Medication Sig Dispense Refill semaglutide (OZEMPIC SUBCUTANEOUS) Inject subcutaneously. No current facility-administered medications for this visit. PAST SURGICAL HISTORY Procedure Laterality Date NONE FAMILY HISTORY Problem Relation Age of Onset Breast Cancer Maternal Aunt Cancer Maternal Aunt BRAIN Cancer Paternal Uncle BONE MARROW Heart Maternal Grandfather Alcohol/Drug Father Allergies Mother Diabetes Maternal Grandmother Social History Tobacco Use Smoking status: Former Packs/day: 0.50 Years: 1.00 Additional pack years: 0.00 Total pack years: 0.50 Types: Cigarettes Passive exposure: Past Smokeless tobacco: Never Substance Use Topics Alcohol use: No Drug use: No Objective BP 126/90 Pulse 85 Temp 37.2 C (99 F) Resp 21 Wt 106.4 kg (234 lb 9.6 oz) LMP 05/10/2006 SpO2 98% Physical Exam Vitals reviewed. Constitutional: Appearance: Normal appearance. HENT: Head: Normocephalic and atraumatic. Right Ear: Tympanic membrane, ear canal and external ear normal. Left Ear: Tympanic membrane, ear canal and external ear normal. Nose: Congestion present. Mouth/Throat: Mouth: Mucous membranes are moist. Pharynx: Oropharynx is clear. Cardiovascular: Rate and Rhythm: Normal rate and regular rhythm. Heart sounds: Normal heart sounds. Pulmonary: Effort: Pulmonary effort is normal. Breath sounds: Normal breath sounds. Musculoskeletal: Cervical back: Neck supple. Lymphadenopathy: Cervical: Cervical adenopathy present. Skin: General: Skin is warm and dry. Findings: No rash. Neurological: General: No focal deficit present. Mental Status: She is alert. Assessment and Plan ASSESSMENT/PLAN: 1. Viral URI - ICD9: 465.9, ICD10: J06.9 - Discussed viral etiology and rationale for treatment. - Symptomatic treatment with prn analgesia - Supportive care with fluids and rest - The patient may also use OTC cough and cold meds as needed. - COVID & INFLUENZA A/B & RSV NAAT, ROUTINE Brycedesmond Kirby PA-C documented in this encounter [facility] Instructions 05-07-2023 Patient Instructions Note Date & Type Note Facility 05-07-2023 Instructions Bryce Kirby PA-C - 05/07/2023 9:41 AM EST May continue otc cold medications Flonase for nasal congestion If not better in one week be seen again documented in this encounter [facility] Evaluation note Note Date & Type Note Facility documented in this encounter [facility] Summary Purpose Family History No Family History Records Found Advance Directives No Advanced Directives Records Found Additional Source Comments Source Comments (unrecognize d section and content) In the event this informatio n is protected by the Federal Confidentiality of Alcohol and Drug Abuse Patient Records regulations: The Federal rules restrict any use of the information to criminally investigate or prosecute any alcohol or drug abuse patient.[facility] Reason for Visit (unrecogniz ed section and content) Care Teams (unrecognized sec tion and content) INFORMATION SOURCE (unrecogn ized section and content) FOR RECORDS PERTAINING TO PATIENTS WHO ARE OR HAVE BEEN ENROLLED IN A CHEMICAL DEPENDENCY/SUBSTANCEABUSE PROGRAM, SOME INFORMATION MAY BE OMITTED. This clinical summary was aggregated from multiple sources. Caution should be exercised in using it in the provision of clinical care. This summary normalizes information from multiple sources, and as a consequence, information in this document may materially change the coding, format and clinical context of patient data. In addition, data may be omitted in some cases. CLINICAL DECISIONS SHOULD BE BASED ON THE PRIMARY CLINICAL RECORDS. [email or web address] [facility]. provides no warranty or guarantee of the accuracy or completeness of information in this document.
== END | disposition home or self-care (01) ==
LOC: LABSPEC 07:55
PROVIDERS: PCP Family Medicine; Referring Provider Surgery; Visit Provider Surgery
DX: D24.1 Benign neoplasm of right breast (principal)
CPT/HCPCS: 88305

== ENCOUNTER → 2023-05-30 | Outpatient (CLI) | payer BC, SELFPAY ==
--- OUTSIDE RECORDS SUMMARY | 2023-05-30 22:49 | XMS RPT_ITS | CCD ---
Author Name Unknown Address [address] [place] [address] [place] [address] Organization [facility] Care Team Providers Care Export Agent Name Role Phone Juanita Logan DO Primary [...] 99 [degF] Bryce Athy PA-C Work Phone: [facility] 05-07-2023 09:33-0500 Body weight 106.41 kg Bryce Athy PA-C Work Phone: [facility] 05-07-2023 09:33-0500 Diastolic blood pressure 90 mm[Hg] Bryce Athy PA-C Work Phone: [facility] 05-07-2023 09:33-0500 Heart rate 85 /min Bryce Athy PA-C Work Phone: [facility] 05-07-2023 09:33-0500 Respiratory rate 21 /min Bryce Athy PA-C Work Phone: [facility] 05-07-2023 09:33-0500 SaO2% (BldA) [Mass fraction] 98 % Bryce Athy PA-C Work Phone: [facility] 05-07-2023 09:33-0500 Systolic blood pressure 126 mm[Hg] Bryce Kirby PA-C Work Phone: [facility] Encounters Encounter Date Encounter Type Care Provider Facility Start: 05-07-2023 End: 05-07-2023 ambulatory JUANITA LOGAN Facility:[facility] Start: 05-07-2023 End: 05-07-2023 Patient encounter procedure Bryce Kirby PA-C Work Phone: [facility] Plan of Treatment Date Care Activity Detail Author Start: 03-19-2023 Depression Assessment Depression Assessment [facility] Start: 11-17-2022 Covid-19 Vaccine () Covid-19 Vaccine () [facility] Start: 11-17-2022 Influenza vaccination Influenza Vaccine (#1) [facility] Start: 02-03-2018 Screening for malignant neoplasm of cervix HPV Testing [facility] Start: 02-03-2009 Screening for malignant neoplasm of cervix Pap Testing [facility] Start: 02-03-2007 Urine microalbumin profile DTaP,Tdap,Td Vaccine (1 - Tdap) [facility] Start: 02-03-2006 Hepatitis C screening Hepatitis C Screening [facility] Start: 02-03-2006 HIV screening HIV Screening [facility] Start: 1990 Hepatitis B Vaccine (1 of 3 - 3-dose series) Hepatitis B Vaccine (1 of 3 - 3-dose series) [facility] COVID & INFLUENZA A/ B & RSV NAAT, ROUTINE COVID & INFLUENZA A/B & RSV NAAT, ROUTINE Microbiology Routine Viral URI 05/07/2023 9:43 AM EST [facility] Work Phone: [facility] Payers Date Payer Category Payer Unknown GABRI[employer]LL[employer] BLUE CARD PPO OOS [id number] 2016-Present [phone] [address] [place] [address] PPO [id number] 2016 Unknown [id number] Social History Date Type Detail Facility Start: 05-07-2023 Tobacco smoking stat us NHIS Ex-smoker [facility] History of tobacco use Current smoker [facility] History of tobacco use Cigarette Smoker C [facility] Start: 05-07-2023 Cigarettes smoked cu rrent (pack per day) - Reported 0.[address] [facility] History of tobacco use Passive smoker [facility] Start: 05-07-2023 Tobacco use and exposure Smoke less tobacco non-user 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 Start: 05-07-2023 Tobacco use panel [facility] Start: 1990 Sex Assigned At Not on file C [facility] Progress note 05-07-2023 Note Date & Type Note Facility 05-07-2023 Note HNO ID: [id number] Author: BRYCE KIRBY PA-C Service: ? Author Type: Physician Earth Observations Chief Scientist Type: Progress Notes Filed: 05/07/2023 09:55 Note Text: This note was created using [employer]. Subjective Luisa Guevara is a 33 year [...] AND RSV NAAT, ROUTINE Bryce Kirby PA-C [facility] History of Present illness Narrative 05-07-2023 Bryce Kirby PA-C - 05/07/2023 9:53 AM EST Note Date & Type Note Facility 05-07-2023 History of Presen t illness Narrative This note was created using [employer]. Subjective Luisa Guevara is a 33 year [...] Brycedesmond Kirby PA-C documented in this encounter [facility] Instructions 05-07-2023 Patient Instructions Note Date & Type Note Facility 05-07-2023 Instructions Bryce Kirby PA-C - 05/07/2023 9:41 AM EST May continue otc cold medications Flonase for nasal congestion If not better in one week be seen again documented in this encounter [facility] Evaluation note Note Date & Type Note Facility documented in this encounter [facility] Summary Purpose Family History No Family History [...] or prosecute any alcohol or drug abuse patient.[facility] Reason for Visit (unrecogniz ed section and [...] BE BASED ON THE PRIMARY CLINICAL RECORDS. [employer] [facility]. provides no warranty or guarantee of the accuracy or completeness of information in this document.
[2023-06-01 18:08] LABS: Hepatitis B Core Ab Total Negative (Negative); QNTFERON TB Mitogen Value > 10.00 IU/mL (.); QNTFERON TB Nil Value 0 IU/mL (.); QNTFERON TB1+ Ag Value 0.01 IU/mL (.); QNTFERON TB2+ Ag Value 0.01 IU/mL (.); QNTIFERON TB Positive Criteria Negative (Negative)
== END | disposition home or self-care (01) ==
LOC: MTLAB 17:02
PROVIDERS: PCP Family Medicine; Referring Provider Physician Assistant Medical; Visit Provider Physician Assistant Medical
DX: L40.0 Psoriasis vulgaris (principal); D23.61 Other benign neoplasm of skin of right upper limb, including shoulder; Z79.899 Other long term (current) drug therapy
CPT/HCPCS: 36415; 86480; 86704

== ENCOUNTER 2023-06-18 17:05 | Emergency (ER) | payer BC, SELFPAY ==
[2023-06-18 17:06] VITALS: BP 150/92; BP 150/94; PULSE 94; RESP 16; TEMP 36.3; O2SAT 99; BMI 35.5
[2023-06-18 18:18] LABS: Absolute Lymphocyte Count 1.64 X10^3/uL (0.83-4.51); Absolute Neutrophil Count 10.7 X10^3/uL (2.0-7.7); Basophil# 0.05 X10^3/uL; Basophil% 0.4 % (0-1); Eosinophil# 0.05 X10^3/uL; Eosinophils% 0.4 % (0-5); Hemoglobin 13.8 g/dL (12.0-15.0); Lymphocyte # 1.64 X10^3/ul (0.83-4.51); Lymphocyte % 12.6 % (19-41); Mean Corp Hgb Conc 33.7 g/dL (32-36); Mean Corpuscular Hgb 28.8 pg (27.0-32.0); Mean Corpuscular Volume 85.6 fL (81-99); Mean Platelet Vol. 10.5 fl (6.2-12.0); Monocyte# 0.55 X10^3/uL; Monocyte% 4.2 % (0-10); NRBC Flagged by Analyzer 0 % (0-5); Neutrophil # 10.71 X10^3/uL (2.7-7.7); Neutrophil % 82.1 % (47-70); Platelet Count 311 K/mm3 (150-450); RBC Distribution Width CV 13.1 % (11.6-14.6); RBC Distribution Width SD 40.1 fl (35.1-43.9); Red Blood Count 4.79 M/mm3 (4.2-5.4)
--- NOTE | 2023-06-18 18:40 | CT_ITS ---
INDICATION: Right flank pain EXAMINATION: CT ABDOMEN AND PELVIS WITHOUT CONTRAST - CT Abdomen And Pelvis W/O Contrast Injection TECHNIQUE: Helically acquired images were obtained of the abdomen and pelvis without oral or IV contrast. A radiation dose optimization technique was used for this scan. IV Contrast dosage and agent: None. Oral contrast: None. COMPARISON: None. FINDINGS: LOWER CHEST: Lung bases are clear. No cardiomegaly or pericardial effusion. LIVER: Mild hepatomegaly.. No focal mass. GALLBLADDER AND BILIARY TREE: No calcified gallstones. No gallbladder distension or wall edema. No intra- or extrahepatic biliary ductal dilation. PANCREAS: No focal cystic or solid mass. SPLEEN: Homogeneous parenchyma with borderline splenomegaly. ADRENAL GLANDS: No nodules. KIDNEYS AND URETERS: 3.5 mm proximal right ureteral stone with mild hydronephrosis. Additional nonobstructive small right renal calyceal stone. No left nephrolithiasis or hydronephrosis. Remainder the ureters are unremarkable. Unremarkable bladder. . PERITONEUM: No ascites or free air. No other fluid collection. BOWEL: No acute gastric finding. No small bowel distention or focal wall thickening. Normal appendix. Moderate proximal to mid colonic stool burden. No colonic wall thickening or surrounding inflammation. LYMPH NODES: No enlarged mesenteric or retroperitoneal lymph nodes. VESSELS: Aorta is non-dilated. URINARY BLADDER: Unremarkable. REPRODUCTIVE ORGANS: Unremarkable uterus and adnexa.. ABDOMINAL WALL: Small fat-containing umbilical hernia without inflammation.. BONES: No lytic or blastic abnormality. CT/Abdomen/Pelvis without Cont IMPRESSION: 3.5 mm proximal right ureteral stone with mild hydronephrosis. Additional right renal calyceal stone. Mild hepatomegaly and borderline splenomegaly. Moderate proximal to mid colonic stool. Electronically Signed: Dick Chatterjee MD at 19:26 EDT ,
[2023-06-18 18:43] LABS: Anion Gap 9 (5-15); BUN 12 mg/dL (7-18); BUN/Creat Ratio 14.1 RATIO (10-20); Calcium,Total 9.1 mg/dL (8.5-10.1); Chloride 106 mmol/L (98-107); Creatinine, Serum 0.85 mg/dL (0.55-1.02); EST Glomerular Filtration Rate 80 mL/min (>60); Est Glom Filt Rate - Afr Amer 97 mL/min (>60); Glucose 105 mg/dL (74-106); Potassium 3.8 mmol/L (3.5-5.1); Sodium Level 140 mmol/L (136-145)
[2023-06-18] MEDS: 0.9% Normal Saline (1000mL) 1,000 ML 1000 ML IV (18:46)
[2023-06-18] MEDS: Ondansetron 4 MG/2 ML Vial IV (18:46)
[2023-06-18] MEDS: Morphine 4 MG/ML Syringe IV (18:46)
[2023-06-18 18:48] LABS: Internal QC Validated? YES +Cl - CLEAR BKGD; Pregnancy, Serum, hCG Quali. NEGATIVE Negative
--- NOTE | 2023-06-18 19:04 | EX.ED.DYSGE1 ---
HPI History of Present Illness Chief Complaint: Flank Pain Informant: patient Onset/Context/Timing Onset: Hours (2) Context: Sudden Onset Timing: Continuous Quality: Stabbing Location: Right flank Worsened by: Nothing Relieved by: Nothing Narrative Narrative: Patient presents with right flank pain that began approximate 2 hours prior to arrival. Patient describes it as stabbing. Patient states nothing makes it better and nothing makes it worse. Patient states she is unable to find a position of comfort. Patient states she has a history of kidney stones and states this feels similar to prior kidney stones. Patient states she has been having some nausea and vomiting with the pain. Patient noted some blood in her urine. Patient denies any fevers or chills. PFSH PFS Medical History (Updated 06/18/23 @ 21:[address] Nima Rosario DO) Hypothyroid Kidney stones Psoriasis Home Medications tildrakizumab-asmn 100 mg/mL subcutaneous syringe (Ilumya) mg subcut 09/10/21 [History Last Taken Unknown] cholecalciferol (vitamin D3) 25 mcg (1,000 unit) capsule 25 mcg PO DAILY 05/15/23 [History Last Taken Unknown] multivitamin 1 tab PO DAILY 05/15/23 [History Last Taken Unknown] hydrocodone-acetaminophen 5-325mg 5mg-325mg 1 tab PO Q6H PRN PRN Pain 3 days #10 TABLETS 06/18/23 [Rx Last Taken Unknown] Allergy/AdvReac Type Severity Reaction Status Date / Time No Known Allergies Allergy Verified 06/18/23 17:08 Family History (Updated 05/15/23 @ 14:21 by Radhika Rivera) Father Heart disease Grandfather Colon cancer Uncle Cancer Aunt Cancer Surgical History S/P breast biopsy Social History Smoking Status: Former smoker alcohol intake: never ROS ROS ED Constitutional Constitutional ED: Denies chills or fever(s) Eyes Eyes: Denies blurry vision or change in vision ENT ENT ED: Denies rhinorrhea or sore throat Cardiovascular Cardiovascular: Denies chest pain or palpitations Respiratory/Chest Respiratory/Chest: Denies cough or dyspnea Gastrointestinal Gastrointestinal: Reports nausea and vomiting Genitourinary Genitourinary ED: Reports hematuria; Denies dysuria Musculoskeletal Musculoskeletal: Reports back pain; Denies neck pain Integumentary Denies abscess or rash Neurologic Neurologic: Denies headache(s) or weakness Allergic/Immunologic Allergic/Immunologic ED: Denies mouth swelling or urticaria EXAM Physical Exam Const Vital Signs: 06/18/23 17:06 06/18/23 17:06 06/18/23 19:05 Temperature 97.4 F L 97.4 F L 97.1 F L Temperature Source Temporal Temporal Temporal Pulse Rate 94 94 93 Respiratory Rate 16 16 16 Blood Pressure 150/92 H 150/94 H 146/97 H Blood Pressure Mean 111 112 113 Pulse Ox 99 99 97 Oxygen Delivery Method Room Air Room Air 06/18/23 21:00 Temperature Temperature Source Pulse Rate 72 Respiratory Rate 15 Blood Pressure 134/86 H Blood Pressure Mean 102 Pulse Ox 98 Oxygen Delivery Method Room Air Positive well nourished, well developed and obese General Appearance ED: well developed and NAD Nutritional Appearance: obese HEENT Reports moist mucous membranes Neck supple and no JVD Resp normal respiratory effort and clear to auscultation bilaterally Cardio regular rate and regular rhythm GI non-tender and non-distended Palpation: soft Back/Spine General Back: CVA tenderness right Extremity normal to inspection Neuro oriented x3, CN's II-XII intact bilaterally and no sensory deficits noted Sensorium / Orientation: alert Motor Exam: strength 5/5 throughout Psych mental status grossly normal MDM MDM MDM Narrative Medical decision making narrative: Differential diagnosis includes ureteral calculus, pyelonephritis, gastroenteritis, and urinary tract infection. CBC will be obtained to assess for leukocytosis and anemia. Basic metabolic profile will be obtained to assess for electrolyte abnormality and renal function. Urinalysis will be obtained to assess for urinary tract infection, hematuria, and pyelonephritis. Serum hCG will be obtained to assess for . CT scan of the abdomen pelvis will be obtained to assess for ureteral calculus and pyelonephritis. Lab Data Attestation: I reviewed the patient's lab results. Lab results narrative: CBC was reviewed. There is a mild leukocytosis of 13.0. The remainder is within normal limits. Basic metabolic profile was reviewed and was within normal limits. Serum hCG was reviewed and was negative. Labs: Laboratory Results - last 24 hr 06/18/23 06/18/23 18:11 19:35 WBC 13.0 H RBC 4.79 Hgb 13.8 Hct 41.0 MCV 85.6 MCH 28.8 MCHC 33.7 RDW Std Deviation 40.1 RDW Coeff of Sumit 13.1 Plt Count 311 MPV 10.5 Immature Gran % (Auto) 0.300 Neut % (Auto) 82.1 H Lymph % (Auto) 12.6 L [place] % (Auto) 4.2 Eos % (Auto) 0.4 Baso % (Auto) 0.4 Absolute Neuts (auto) 10.7 H Absolute Lymphs (auto) 1.64 Nucleated RBC % 0 Sodium 140 Potassium 3.8 Chloride 106 Carbon Dioxide 25.0 Anion Gap 9 BUN 12 Creatinine 0.85 Estim Creat Clear Calc 110.10 Est GFR (MDRD) Af Amer 97 Est GFR (MDRD) Non-Af 80 BUN/Creatinine Ratio 14.1 Glucose 105 Calcium 9.1 Serum , Qual NEGATIVE Urine Color Yellow Urine Clarity Sl. Cloudy Urine pH 6.5 Ur Specific [place] 1.020 Urine Protein 30 H Urine Glucose (UA) Normal Urine Ketones 150 A* Urine Occult Blood 250 H Urine Nitrite Negative Urine Bilirubin Negative Urine Urobilinogen 1 H Ur Leukocyte Esterase 25 H Urine RBC > 100 SEEN Urine WBC 0-5 SEEN Ur Squamous Epith Cells 0-5 SEEN Urine Bacteria 0 SEEN Urine Mucus 0 SEEN Radiography Diagnostic Testing: Clinical Impression(s) from Imaging Studies Abdomen/Pelvis CT 06/18/23 18:40 IMPRESSION: 3.5 mm proximal right ureteral stone with mild hydronephrosis. Additional right renal calyceal stone. Mild hepatomegaly and borderline splenomegaly. Moderate proximal to mid colonic stool. Electronically Signed: Dick Chatterjee MD at 19:26 EDT , CT scan of the abdomen and pelvis was obtained. There is a 3.5 mm proximal right ureteral calculus with mild hydronephrosis. There is an additional right calyceal stone. This was interpreted by the radiologist and was also independently reviewed by myself. Treatment and Re-Evaluation :: Patient was given IV fluids, morphine, and Zofran. Patient is feeling better on reevaluation. Patient was advised of her findings. Patient was given a referral for urology. Patient was given a prescription for a short course of Bonner. Patient was instructed to follow-up in 3 to 5 days. Patient was instructed to return if worse in any way. Patient understood and was agreeable with the plan. All questions were answered. Discharge Plan Triage Chief Complaint: Flank Pain ED Provider: Nima Rosario Dx/Rx/DC Orders Clinical Impression: Acute right flank pain, Calculus of proximal right ureter Instructions: ED Kidney Stone with Pain Prescriptions: New hydrocodone-acetaminophen [hydrocodone-acetaminophen] 5-325 mg tablet 1 tab PO Q6H PRN PRN (Reason: Pain) 3 Days Qty: 10 0RF No Action cholecalciferol (vitamin D3) 25 mcg (1,000 unit) capsule 25 mcg PO DAILY multivitamin Tablet 1 tab PO DAILY Ilumya 100 mg/mL Syringe SUBCUT Rx Instructions: [id number] Primary Care Provider: Grecia Logan Referrals: Pat Pedraza MD [Med Staff - Active Staff] - 3-5 Days Grecia Logan DO [Primary Care Provider] - 3-5 Days Disposition Disposition: Home, Self Care
[2023-06-18 19:05] VITALS: BP 146/97; PULSE 93; RESP 16; TEMP 36.2; O2SAT 97
[2023-06-18 19:44] LABS: Bacteria 0 SEEN /hpf (None Seen); Mucous, Urine 0 SEEN /hpf (<or=2+)
[2023-06-18 19:46] LABS: Color, Urine Yellow (Yellow); Glucose, Dipstick Normal (Normal); Leukocyte Esterase-Dipstick 25 /ul (Negative); Nitrite-Dipstick Negative (Negative); Occult Blood-Urine 250 /ul (Negative); Protein-Dipstick 30 mg/dl (Negative); Urine Bilirubin Dipstick Negative (Negative); Urine Clarity Sl. Cloudy (Clear); Urine Urobilinogen 1 mg/dl (Normal); Urine pH 6.5 (5.0 - 8.0)
[2023-06-18 20:00] LABS: White Blood Cells 0-5 SEEN /hpf (0-5)
[2023-06-18 20:01] LABS: Ketone-Dipstick 150 mg/dl (Negative); Red Blood Cells-Urine > 100 SEEN /hpf (0-5); Squamous Epithelial Cells - UA 0-5 SEEN /hpf (5-10)
[2023-06-18 21:00] VITALS: BP 134/86; PULSE 72; RESP 15; O2SAT 98
[2023-06-18 21:42] VITALS: BP 124/63; PULSE 71; RESP 16; TEMP 36.2; O2SAT 99
== END 2023-06-18 21:43 | disposition home or self-care (01) ==
PROVIDERS: Emergency Provider Emergency Medicine; PCP Family Medicine; Visit Provider Emergency Medicine
DX: R10.9 Unspecified abdominal pain (principal); N13.2 Hydronephrosis with renal and ureteral calculous obstruction; Z87.891 Personal history of nicotine dependence
CPT/HCPCS: 74176; 80048; 81001; 84703; 85025; 96361; 96374; 96375; 99283; J7030; A4216; J2405

== ENCOUNTER 2023-06-20 19:45 | Emergency (ER) | payer BC, SELFPAY ==
[2023-06-20 19:46] VITALS: BP 141/96; PULSE 91; RESP 16; TEMP 36.6; O2SAT 99; BMI 36.4
--- NOTE | 2023-06-20 21:08 | EX.ED.DYSGE1 ---
HPI History of Present Illness Chief Complaint: Flank Pain Informant: patient Onset/Context/Timing Onset: Days (2) Context: Gradual Onset Timing: Continuous Quality: Sharp Location: Right flank Worsened by: Nothing Relieved by: Nothing Narrative Narrative: Patient presents with right flank pain that became worse today. Patient states she has been unable to keep her pain medication down. Patient was seen here 2 days ago and was diagnosed with a 3.5 mm right proximal ureteral calculus. Patient was given a prescription for Aguanga at that time. Patient states her pain became worse again today. Patient denies any fevers or chills. Patient denies any dysuria. Patient denies any hematuria. Patient states she was having hematuria 2 days ago but this has resolved. Patient describes her pain as sharp. [facility] Medical History Hypothyroid Kidney stones Psoriasis Home Medications tildrakizumab-asmn 100 mg/mL subcutaneous syringe (Ilumya) mg subcut 09/10/21 [History Last Taken Unknown] multivitamin 1 tab PO DAILY 05/15/23 [History Last Taken Unknown] hydrocodone-acetaminophen 5-325mg 5mg-325mg 1 tab PO Q6H PRN PRN Pain 3 days #10 TABLETS 06/18/23 [Rx Last Taken Unknown] biotin 1 tab PO DAILY 06/20/23 [History Last Taken Unknown] levothyroxine 25 mcg tablet 25 mcg PO DAILY 06/20/23 [History Last Taken Unknown] loratadine 10 mg tablet (Allerclear) 10 mg PO DAILY 06/20/23 [History Last Taken Unknown] ondansetron 4 mg disintegrating tablet 4 mg PO Q8H PRN PRN Nausea #10 tabs 06/20/23 [Rx Last Taken Unknown] semaglutide (weight loss) 0.5 mg/0.5 mL subcutaneous pen injector (Wegovy) 0.5 mg subcut QWEEK 06/20/23 [History Last Taken Unknown] Allergy/AdvReac Type Severity Reaction Status Date / Time No Known Allergies Allergy Verified 06/20/23 19:47 Family History (Updated 05/15/23 @ 14:21 by Radhika Rivera) Father Heart disease Grandfather Colon cancer Uncle Cancer Aunt Cancer Surgical History S/P breast biopsy Social History Smoking Status: Former smoker alcohol intake: never ROS ROS ED Constitutional Constitutional ED: Reports chills and subjective; Denies fever(s) Eyes Eyes: Denies blurry vision or change in vision ENT ENT ED: Denies rhinorrhea or sore throat Cardiovascular Cardiovascular: Denies chest pain or palpitations Respiratory/Chest Respiratory/Chest: Denies cough or dyspnea Gastrointestinal Gastrointestinal: Reports nausea and vomiting Genitourinary Genitourinary ED: Denies dysuria or hematuria Musculoskeletal Musculoskeletal: Reports back pain; Denies neck pain Integumentary Denies abscess or rash Neurologic Neurologic: Denies headache(s) or weakness Allergic/Immunologic Allergic/Immunologic ED: Denies mouth swelling or urticaria EXAM Physical Exam Const Vital Signs: 06/20/23 19:46 06/20/23 21:40 Temperature 97.8 F Temperature Source Temporal Pulse Rate 91 74 Respiratory Rate 16 16 Blood Pressure 141/96 H 120/77 Blood Pressure Mean 111 91 Pulse Ox 99 99 Oxygen Delivery Method Room Air Room Air Positive well nourished and well developed General Appearance ED: well developed and NAD HEENT Reports moist mucous membranes Neck supple and no JVD Resp normal respiratory effort and clear to auscultation bilaterally Cardio regular rate and regular rhythm GI non-tender and non-distended Palpation: soft Back/Spine General Back: CVA tenderness right Neuro oriented x3, CN's II-XII intact bilaterally and no sensory deficits noted Sensorium / Orientation: alert Motor Exam: strength 5/5 throughout Psych mental status grossly normal MDM MDM MDM Narrative Medical decision making narrative: Differential diagnosis includes ureteral calculus, pyelonephritis, dehydration, and . CBC will be obtained to assess for leukocytosis and anemia. Basic metabolic profile will be obtained to assess for electrolyte abnormality and renal function. Serum hCG will be obtained to assess for . KUB will be obtained to assess for ureteral calculus. Urinalysis will be obtained to assess for urinary tract infection and pyelonephritis. Lab Data Attestation: I reviewed the patient's lab results. Lab results narrative: CBC was reviewed. There is a leukocytosis of 18.0. This is increased from previous result. The remainder is within normal limits. Basic metabolic profile was reviewed and was essentially within normal limits. Serum hCG was reviewed and was negative. Urinalysis was reviewed. Occult blood was 150 with 5-10 red blood cells. There is no evidence of urinary tract infection. Labs: Laboratory Results - last 24 hr 06/20/23 06/20/23 21:40 23:08 WBC 18.0 H RBC 5.01 Hgb 14.4 Hct 42.4 MCV 84.6 MCH 28.7 MCHC 34.0 RDW Std Deviation 39.5 RDW Coeff of Sumit 13.1 Plt Count 336 MPV 10.4 Immature Gran % (Auto) 0.400 Neut % (Auto) 90.8 H Lymph % (Auto) 4.6 L [place] % (Auto) 3.7 Eos % (Auto) 0.1 Baso % (Auto) 0.4 Absolute Neuts (auto) 16.3 H Absolute Lymphs (auto) 0.83 Nucleated RBC % 0 Sodium 139 Potassium 3.6 Chloride 106 Carbon Dioxide 27.0 Anion Gap 6 BUN 14 Creatinine 0.98 Estim Creat Clear Calc 96.87 Est GFR (MDRD) Af Amer 83 Est GFR (MDRD) Non-Af 68 BUN/Creatinine Ratio 14.3 Glucose 125 H Calcium 9.2 Serum , Qual NEGATIVE Urine Color Straw Urine Clarity Clear Urine pH 7.0 Ur Specific [place] 1.010 Urine Protein Negative Urine Glucose (UA) Normal Urine Ketones 50 H Urine Occult Blood 150 H Urine Nitrite Negative Urine Bilirubin Negative Urine Urobilinogen Normal Ur Leukocyte Esterase Negative Urine RBC 5-10 SEEN Urine WBC 0 SEEN Ur Squamous Epith Cells 0-5 SEEN Urine Bacteria RARE Urine Mucus 0 SEEN Radiography Diagnostic Testing: Clinical Impression(s) from Imaging Studies KUB X-Ray 06/20/23 22:05 IMPRESSION: No definitive nephrolithiasis. Scattered phleboliths in the inferior abdomen and pelvis. Electronically Signed: Dick Chatterjee MD at 23:00 EDT , KUB x-ray was obtained. There are 2 views. On my independent interpretation, there is a questionable calculus at the mid right ureter. Radiologist also interpreted the x-ray and did not note any definitive nephrolithiasis. Treatment and Re-Evaluation :: Patient was given IV fluids, morphine, and Zofran initially. Patient was having persistent pain. Patient was given a dose of Toradol. Patient was advised of her findings. Patient is feeling better on reevaluation. Patient was given a prescription for Zofran. Patient was instructed to start with liquids and advance her diet as tolerated. Patient states she still has 8 Aguanga tablets at home. Patient was instructed to use these as needed. Patient was instructed to follow-up with urology. Patient understood and was agreeable with the plan. All questions were answered. Discharge Plan Triage Chief Complaint: Flank Pain ED Provider: Nima Rosario Dx/Rx/DC Orders Clinical Impression: Acute right flank pain, Calculus of proximal right ureter Instructions: ED Kidney Stone with Pain Prescriptions: New ondansetron [ondansetron] 4 mg tablet,disintegrating 4 mg PO Q8H PRN PRN (Reason: Nausea) Qty: 10 0RF No Action multivitamin Tablet 1 tab PO DAILY Ilumya 100 mg/mL Syringe SUBCUT Rx Instructions: [id number] hydrocodone-acetaminophen [hydrocodone-acetaminophen] 5-325 mg tablet 1 tab PO Q6H PRN PRN (Reason: Pain) 3 Days Qty: 10 0RF [place] 0.5 mg/0.5 mL pen injector 0.5 mg subcut QWEEK levothyroxine 25 mcg tablet 25 mcg PO DAILY biotin 1 tab PO DAILY loratadine [Allerclear] 10 mg tablet 10 mg PO DAILY Primary Care Provider: Grecia Logan Referrals: Pat Pedraza MD [Med Staff - Active Staff] - 3-5 Days Grecia Logan DO [Primary Care Provider] - 5-7 Days Disposition Disposition: Home, Self Care
[2023-06-20] MEDS: 0.9% Normal Saline (1000mL) 1,000 ML 1000 ML IV (21:37)
[2023-06-20] MEDS: Morphine 4 MG/ML Syringe IV (21:37)
[2023-06-20] MEDS: Ondansetron 4 MG/2 ML Vial IV (21:37)
[2023-06-20 21:40] VITALS: BP 120/77; PULSE 74; RESP 16; O2SAT 99
[2023-06-20 21:46] LABS: Absolute Lymphocyte Count 0.83 X10^3/uL (0.83-4.51); Absolute Neutrophil Count 16.3 X10^3/uL (2.0-7.7); Basophil# 0.07 X10^3/uL; Basophil% 0.4 % (0-1); Eosinophil# 0.01 X10^3/uL; Eosinophils% 0.1 % (0-5); Hematocrit 42.4 % (37-47); Hemoglobin 14.4 g/dL (12.0-15.0); Lymphocyte # 0.83 X10^3/ul (0.83-4.51); Lymphocyte % 4.6 % (19-41); Mean Corpuscular Hgb 28.7 pg (27.0-32.0); Mean Corpuscular Volume 84.6 fL (81-99); Mean Platelet Vol. 10.4 fl (6.2-12.0); Monocyte# 0.67 X10^3/uL; Monocyte% 3.7 % (0-10); NRBC Flagged by Analyzer 0 % (0-5); Neutrophil # 16.31 X10^3/uL (2.7-7.7); Neutrophil % 90.8 % (47-70); Platelet Count 336 K/mm3 (150-450); RBC Distribution Width CV 13.1 % (11.6-14.6); RBC Distribution Width SD 39.5 fl (35.1-43.9); Red Blood Count 5.01 M/mm3 (4.2-5.4)
[2023-06-20 22:00] LABS: Internal QC Validated? YES +Cl - CLEAR BKGD; Pregnancy, Serum, hCG Quali. NEGATIVE Negative
[2023-06-20 22:03] LABS: Anion Gap 6 (5-15); BUN 14 mg/dL (7-18); BUN/Creat Ratio 14.3 RATIO (10-20); Calcium,Total 9.2 mg/dL (8.5-10.1); Chloride 106 mmol/L (98-107); Creatinine, Serum 0.98 mg/dL (0.55-1.02); EST Glomerular Filtration Rate 68 mL/min (>60); Est Glom Filt Rate - Afr Amer 83 mL/min (>60); Estimated Creatinine Clearance 96.87 ml/min; Glucose 125 mg/dL (74-106); Potassium 3.6 mmol/L (3.5-5.1); Sodium Level 139 mmol/L (136-145)
--- NOTE | 2023-06-20 22:05 | RAD_ITS ---
INDICATION: Kidney stone EXAMINATION/TECHNIQUE: X-RAY - XR Abdomen 1 View COMPARISON: None FINDINGS: BOWEL GAS PATTERN: Nonspecific non-obstructive bowel gas pattern. No focal stomach or bowel distention. Large colonic stool burden. FREE AIR: Not well assessed on a supine view. ORGANOMEGALY: Not seen. CALCIFICATIONS: Scattered left abdominal and pelvic phleboliths. LOWER CHEST: No acute pathology. BONES AND SOFT TISSUES: No acute pathology. Large colonic stool burden RAD/Abdomen Single View (Portable) IMPRESSION: No definitive nephrolithiasis. Scattered phleboliths in the inferior abdomen and pelvis. Electronically Signed: Dick Chatterjee MD at 23:00 EDT ,
[2023-06-20] MEDS: Ketorolac 30 MG/ML Syringe IV (22:42)
[2023-06-20 23:00] VITALS: BP 120/78; PULSE 64; RESP 16; O2SAT 99
[2023-06-20 23:13] LABS: Mucous, Urine 0 SEEN /hpf (<or=2+); White Blood Cells 0 SEEN /hpf (0-5)
[2023-06-20 23:19] LABS: Color, Urine Straw (Yellow); Glucose, Dipstick Normal (Normal); Ketone-Dipstick 50 mg/dl (Negative); Leukocyte Esterase-Dipstick Negative /ul (Negative); Nitrite-Dipstick Negative (Negative); Occult Blood-Urine 150 /ul (Negative); Protein-Dipstick Negative (Negative); Urine Bilirubin Dipstick Negative (Negative); Urine Clarity Clear (Clear); Urine Urobilinogen Normal (Normal)
[2023-06-20 23:28] LABS: Bacteria RARE /hpf (None Seen); Red Blood Cells-Urine 5-10 SEEN /hpf (0-5); Squamous Epithelial Cells - UA 0-5 SEEN /hpf (5-10)
[2023-06-20 23:55] VITALS: BP 133/84; PULSE 69; RESP 16; TEMP 37.1; O2SAT 100
== END 2023-06-20 23:55 | disposition home or self-care (01) ==
PROVIDERS: Emergency Provider Emergency Medicine; PCP Family Medicine; Visit Provider Emergency Medicine
DX: N20.1 Calculus of ureter (principal); Z87.891 Personal history of nicotine dependence
CPT/HCPCS: 74018; 80048; 81001; 84703; 85025; 96361; 96374; 96375; 99282; J7030; A4216; J2405

== ENCOUNTER → 2023-07-11 | Outpatient (CLI) | payer BC, SELFPAY ==
[2023-07-11 16:17] LABS: Thyroid Stim Hormone (TSH) 1.89 uIU/mL (0.358-3.74)
== END | disposition home or self-care (01) ==
LOC: MTLAB 13:24
PROVIDERS: PCP Family Medicine; Referring Provider Family Medicine; Visit Provider Family Medicine
DX: E03.9 Hypothyroidism, unspecified (principal)
CPT/HCPCS: 36415; 84439; 84443

== ENCOUNTER → 2023-08-01 | Outpatient (CLI) | payer BC, SELFPAY ==
--- NOTE | 2023-08-01 17:39 | CT_ITS ---
STUDY: CT ABDOMEN AND PELVIS WITHOUT CONTRAST REASON FOR EXAM: Female, 33 years old. KIDNEY STONES RADIATION DOSAGE (If Supplied By Facility): CTDIvol = ( 11.59 ) mGy, DLP = ( 599.56 ) mGycm TECHNIQUE: Transaxial images were obtained from the dome of the diaphragm to the symphysis pubis without oral contrast, and without intravenous contrast. Sagittal and coronal images were reconstructed. Individualized dose optimization techniques were used for this CT. COMPARISON: 06/18/2023 FINDINGS: The visualized lung bases are unremarkable. The visualized portions of the heart are within normal limits. Normal liver. The gallbladder is contracted. Normal spleen. Normal pancreas. Normal bilateral adrenal glands. 2 mm nonobstructing stone in the upper pole the right kidney. Interval passage of the stone from the right ureteropelvic junction. Normal left kidney. Normal visualized stomach. Normal small intestine. Normal colon. The appendix is visualized and appears normal. Normal abdominal aorta. Normal inferior vena cava. Normal retroperitoneum. Normal urinary bladder. There is a small umbilical hernia containing fat. Ankylosis of sacroiliac joints. CT/Abdomen/Pelvis without Cont IMPRESSION: Interval passage of stone from the right ureteral pelvic junction. No change in 2 mm nonobstructing stone in the upper pole the right kidney. Electronically Signed: Jean Taveras MD at 20:12 EDT ,
== END | disposition home or self-care (01) ==
LOC: CT 17:37
PROVIDERS: PCP Family Medicine; Referring Provider Urology; Visit Provider Urology
DX: N20.0 Calculus of kidney (principal)
CPT/HCPCS: 74176

== ENCOUNTER → 2023-09-05 | Outpatient (CLI) | payer BC, SELFPAY ==
[2023-09-05 18:23] LABS: Calcium,Total 9.6 mg/dL (8.5-10.1)
== END | disposition home or self-care (01) ==
PROVIDERS: PCP Family Medicine; Referring Provider Urology; Visit Provider Urology
DX: E83.52 Hypercalcemia (principal)
CPT/HCPCS: 36415; 82310

== ENCOUNTER → 2023-11-21 | Outpatient (CLI) | payer BC, SELFPAY ==
--- NOTE | 2023-11-21 12:33 | US_ITS ---
STUDY: ULTRASOUND BREAST - RIGHT REASON FOR EXAM: Female, 33 years old. Six-month follow-up of the right breast biopsy. TECHNIQUE: Axial and longitudinal images of the RIGHT breast were performed with a high resolution ultrasound transducer. # OF IMAGES: 8 COMPARISON: Comparison is made with prior sonogram of the right breast dated December 08, 2023. FINDINGS: RIGHT Breast: Stable 3.3 cm x 3.5 cm x 1.7 cm hypoechoic nodule at the 10:00 position breast at 4 cm from the nipple. This is unchanged. US/Breast Limited Unilateral IMPRESSION: Stable examination. ASSESSMENT CATEGORY: BIRADS Category 2: Benign. A letter regarding these results will be sent to the patient by the facility within 30 days. Electronically Signed: Alex Alvarado MD at 13:56 EDT ,
== END | disposition home or self-care (01) ==
LOC: OPUS 12:33
PROVIDERS: PCP Family Medicine; Referring Provider Surgery; Visit Provider Surgery
DX: N63.11 Unspecified lump in the right breast, upper outer quadrant (principal)
CPT/HCPCS: 76642

== ENCOUNTER → 2024-02-26 | Outpatient (CLI) | payer BC, SELFPAY ==
[2024-02-26 18:11] LABS: Absolute Lymphocyte Count 2.69 X10^3/uL (0.83-4.51); Absolute Neutrophil Count 6.6 X10^3/uL (2.0-7.7); Basophil# 0.08 X10^3/uL; Basophil% 0.8 % (0-1); Eosinophil# 0.13 X10^3/uL; Eosinophils% 1.3 % (0-5); Hematocrit 40.9 % (37-47); Hemoglobin 13.5 g/dL (12.0-15.0); Lymphocyte # 2.69 X10^3/ul (0.83-4.51); Lymphocyte % 26.6 % (19-41); Mean Corpuscular Hgb 29.4 pg (27.0-32.0); Mean Corpuscular Volume 89.1 fL (81-99); Mean Platelet Vol. 11.6 fl (6.2-12.0); Monocyte# 0.59 X10^3/uL; Monocyte% 5.8 % (0-10); NRBC Flagged by Analyzer 0 % (0-5); Neutrophil # 6.57 X10^3/uL (2.7-7.7); Neutrophil % 64.8 % (47-70); Platelet Count 326 K/mm3 (150-450); RBC Distribution Width CV 13.1 % (11.6-14.6); RBC Distribution Width SD 42.5 fl (35.1-43.9); Red Blood Count 4.59 M/mm3 (4.2-5.4); White Blood Count 10.1 K/mm3 (4.4-11.0)
[2024-02-26 19:26] LABS: ALB/GLOB Ratio 1.2 RATIO (0.9-2.4); AST(SGOT) 11 U/L (15-37); Alanine Aminotransfer ALT/SGPT 11 U/L (13-56); Alkaline Phosphatase 61 U/L (45-117); Anion Gap 5 (5-15); BUN 17 mg/dL (7-18); BUN/Creat Ratio 25.9 RATIO (10-20); Calcium,Total 9.1 mg/dL (8.5-10.1); Chloride 105 mmol/L (98-107); Creatinine, Serum 0.66 mg/dL (0.55-1.02); EST Glomerular Filtration Rate 108 mL/min (>60); Est Glom Filt Rate - Afr Amer 131 mL/min (>60); Globulin 3.2 g/dL (2.2-4.2); Glucose 83 mg/dL (74-106); Potassium 3.4 mmol/L (3.5-5.1); Protein, Total 7.2 g/dL (6.4-8.2); Sodium Level 138 mmol/L (136-145)
[2024-02-26 22:53] LABS: Vitamin D,25 Hydroxy 21.8 ng/mL
== END | disposition home or self-care (01) ==
LOC: MTLAB 15:06
PROVIDERS: PCP Family Medicine; Referring Provider Family Medicine; Visit Provider Family Medicine
DX: E66.9 Obesity, unspecified (principal); E03.9 Hypothyroidism, unspecified
CPT/HCPCS: 36415; 80053; 82306; 84443; 85025

== ENCOUNTER → 2024-07-15 | Outpatient (CLI) | payer BC, SELFPAY ==
[2024-07-15 15:17] LABS: Basophil# 0.05 X10^3/uL; Basophil% 0.7 % (0-1); Eosinophil# 0.03 X10^3/uL; Eosinophils% 0.4 % (0-5); Hematocrit 42.2 % (37-47); Hemoglobin 14.3 g/dL (12.0-15.0); Lymphocyte % 20.4 % (19-41); Mean Corp Hgb Conc 33.9 g/dL (32-36); Mean Corpuscular Hgb 29.7 pg (27.0-32.0); Mean Corpuscular Volume 87.7 fL (81-99); Mean Platelet Vol. 11.5 fl (6.2-12.0); Monocyte# 0.33 X10^3/uL; Monocyte% 4.8 % (0-10); NRBC Flagged by Analyzer 0 % (0-5); Neutrophil # 5.04 X10^3/uL (2.7-7.7); Neutrophil % 73.4 % (47-70); Platelet Count 277 K/mm3 (150-450); RBC Distribution Width CV 12.6 % (11.6-14.6); RBC Distribution Width SD 40.8 fl (35.1-43.9); Red Blood Count 4.81 M/mm3 (4.2-5.4); White Blood Count 6.9 K/mm3 (4.4-11.0)
[2024-07-15 15:59] LABS: ALB/GLOB Ratio 1.5 RATIO (0.9-2.4); AST(SGOT) 13 U/L (<=31); Alanine Aminotransfer ALT/SGPT 6 U/L (<=34); Albumin, Serum 4.4 g/dL (3.5-5.0); Alkaline Phosphatase 54 U/L (35-104); Anion Gap 12 (5-15); BUN 17 mg/dL (4-19); BUN/Creat Ratio 23.5 RATIO (10-20); Carbon Dioxide 22.9 mmol/L (21.0-32.0); Chloride 104 mmol/L (98-108); Creatinine, Serum 0.72 mg/dL (0.70-1.20); EST Glomerular Filtration Rate 111 (>60); Globulin 2.9 g/dL (2.2-4.2); Glucose 92 mg/dL (70-99); Potassium 3.9 mmol/L (3.3-5.1); Protein, Total 7.2 g/dL (5.9-8.4); Sodium Level 138 mmol/L (133-145); Total Bilirubin 0.35 mg/dL (0.00-1.30); Vitamin D,25 Hydroxy 57.5 ng/mL (30-100)
== END | disposition home or self-care (01) ==
LOC: MTLAB 11:21
PROVIDERS: PCP Family Medicine; Referring Provider Family Medicine; Visit Provider Family Medicine
DX: E03.9 Hypothyroidism, unspecified (principal); E87.6 Hypokalemia; N92.0 Excessive and frequent menstruation with regular cycle
CPT/HCPCS: 36415; 80053; 82306; 84443; 85025

== ENCOUNTER → 2024-09-08 | Outpatient (CLI) | payer BC, SELFPAY ==
--- NOTE | 2024-09-08 10:36 | RAD_ITS ---
PROCEDURE: ABDOMEN SINGLE VIEW 09/08/2024 REASON FOR EXAM: POSSIBLE KIDNEY STONES TECHNIQUE: Two-view supine abdomen fluid better later 1st phalanx aortic valvular is worker area of inwards ridiculous flow images were absolute COMPARISON: Abdomen study of 06/20/2023. FINDINGS: Bowel gas: Bowel gas pattern is normal. No evidence of bowel obstruction. Calcifications: Evaluation limited by overlying stool, but no urinary tract calculus is definitively seen. Bones: Mild degenerative changes of the spine. RAD/Abdomen Single View IMPRESSION: Unremarkable bowel-gas pattern. No definite calculus identified. Reading Location: [place] [id number]
== END | disposition home or self-care (01) ==
LOC: MTRAD 10:34
PROVIDERS: PCP Family Medicine
DX: R31.9 Hematuria, unspecified (principal)
CPT/HCPCS: 74018

== ENCOUNTER → 2024-09-08 | Outpatient (CLI) | payer BC, SELFPAY ==
[2024-09-08 12:52] LABS: Hematocrit 41.5 % (37-47); Hemoglobin 14.2 g/dL (12.0-15.0); Mean Corp Hgb Conc 34.2 g/dL (32-36); Mean Corpuscular Hgb 30.2 pg (27.0-32.0); Mean Corpuscular Volume 88.3 fL (81-99); Platelet Count 310 K/mm3 (150-450); RBC Distribution Width CV 12.7 % (11.6-14.6); RBC Distribution Width SD 41.1 fl (35.1-43.9); White Blood Count 6.4 K/mm3 (4.4-11.0)
[2024-09-08 13:52] LABS: ALB/GLOB Ratio 1.6 RATIO (0.9-2.4); AST(SGOT) 13 U/L (<=31); Alanine Aminotransfer ALT/SGPT 9 U/L (<=34); Albumin, Serum 4.4 g/dL (3.5-5.0); Alkaline Phosphatase 58 U/L (35-104); Anion Gap 11 (5-15); BUN 11 mg/dL (4-19); Calcium,Total 9.2 mg/dL (7.6-11.0); Carbon Dioxide 23.7 mmol/L (21.0-32.0); Chloride 104 mmol/L (98-108); Creatinine, Serum 0.67 mg/dL (0.70-1.20); EST Glomerular Filtration Rate 116 (>60); Globulin 2.8 g/dL (2.2-4.2); Glucose 94 mg/dL (70-99); Potassium 4.1 mmol/L (3.3-5.1); Protein, Total 7.2 g/dL (5.9-8.4); Sodium Level 139 mmol/L (133-145); Total Bilirubin 0.56 mg/dL (0.00-1.30)
--- OUTSIDE RECORDS SUMMARY | 2024-09-08 21:53 | XMS RPT_ITS | CCD ---
Author Organization [facility] Care Team Providers Care Personal Service Workers Name Role Phone Juanita Logan DO Primary Care Provider [phone] DO Juanita Logan Primary Care Provider DO Juanita Logan Referring Provider Dr. Nadeem Sweet Attending Provider DO Juanita Logan Primary Care Provider DO Juanita Logan Referring Provider Dr. Nadeem Sweet Attending Provider Juanita Logan DO Primary Care Provider Juanita Logan DO Primary Care Provider YAMILEX SHERIFF Attending Unavailable JUANITA LOGAN Primary Care Unavailabl e Carter, Fabienneon Primary Care Unavailable Delilah Machado Attending Unavailable Carter, Delilah Referring Unavailable Pat Pedraza Attending Unavailable Pat Pedraza Referring Unavailable Carter, Chalon Primary Care Unavailable Carter, Chalon Primary Care Unavailable Pat Pedraza Attending Unavailable Pat Pedraza Referring Unavailable Nadeem Sweet Attending Unavailable Nadeem Sweet Referring Unavailable Carter, Chalon Primary Care Unavailable Carter, Chalon Primary Care Unavailable CarterFabienneon Attending Unavailable Carter, Chalon Referring Unavailable Carter Delilah GONSALEZ Primary Care Provider [phone] Medications Current Medications Medication Drug Class(es) Dates Sig (Normalized) Sig (Original) acetaminophen 325 mg / HYDROcodone bitartrate 5 mg oral tablet (3 sources) Opioid Agonist Start: 06-18-2023 take 1 tablet by mouth every six hours as needed Hydrocodone-Acetami nophen Active 1 TABLET PO EVERY 6 HOURS NEEDED 12 19June 18, 2023 Biotin (2 sources) Start: 06-20-2023 take 1 tablet by mouth once daily biotin Active 1 TABLET PO DAILY June 20, 2023 12:00am ibuprofen 600 mg oral tablet (2 sources) Nonsteroidal Anti-inflammatory Drug Start: 09-18-2019 take 600 mg by mouth four times daily Ibuprofen Active 600 MG PO 4 TIMES DAILY September 18, 2019 11:27pm levothyroxine sodium 0.025 mg oral tablet (2 sources) l-Thyroxine Start: 06-20-2023 take 25 ug by mouth once daily Levothyroxine Active 25 MCG PO DAILY June 20, 2023 12:00am loratadine 10 mg oral tablet (2 sources) Start: 06-20-2023 take 1 tablet by mouth once daily Loratadine (Allerclear) 10 mg tablet Active 10 MG PO DAILY June 20, 2023 12:00am Multivitamin preparation (5 sources) Start: 05-15-2023 take 1 tablet by mouth once daily Multivitamin Active 1 TABLET PO DAILY May 15, 2023 1:00am Start: 05-15-2023 take 1 tablet by meeta th once daily Multivitamin Active 1 TABLET PO DAILY May 15, 2023 12:00am nitrofurantoin, macrocrystals 25 mg / nitrofurantoin, monohydrate 75 mg oral capsule (1 source) Nitrofuran Antibacterial Start: 09-07-2024 End: 09-12-2024 take 1 capsule by mouth twice daily nitrofurantoin monohydrate and macrocrystal (MACROBID) 100 mg capsule Indications: Urinary frequency Take 1 capsule by mouth two times a day for 5 days. 10 capsule 09/07/2024 09/12/2024 Active ondansetron 4 mg disintegrating oral tablet (4 sources) Serotonin-3 Receptor Antagonist Start: 06-20-2023 take 4 mg by mouth every eight hours as needed Ondansetron Active 4 MG PO EVERY 8 HOURS NEEDED June 20, 2023 12:00am Start: 09-18-2019 take 4 mg by mouth e very eight hours as needed Ondansetron Active 4 MG PO EVERY 8 HOURS NEEDED September 18, 2019 11:25pm predniSONE 20 mg oral tablet (1 source) Start: 06-22-2023 End: 06-26-2023 take 2 tablets by mouth once daily at mealtime predniSONE (DELTASONE) 20 mg tablet Take 2 tablets by mouth once daily for 4 days. Take daily with food. 8 tablet 0 06/22/2023 06/26/2023 Active Comment on above: Take 2 tablets by [facility] once daily for 4 days. Take daily with food. semaglutide (OZEMPIC SUBCUTANEOUS) (6 sources) semaglutide (OZEMPIC SUBCUTANEOUS) Inject subcutaneously. Active semaglutide (OZE MPIC SUBCUTANEOUS) Inject subcutaneously. 0 Active Comment on above: Inject subcutaneousl y. Semaglutide (Weight Loss) [Semaglutide (Weight Loss) 0.5 Mg/0.5 Ml Subcutaneous Pen Injector] (2 sources) Start: 06-20-2023 Semaglutide (Weight Loss) [Semaglutide (Weight Loss) 0.5 Mg/0.5 Ml Subcutaneous Pen Injector] (Semaglutide (Weight Loss) 0.5 Mg/0.5 Ml Subcutaneous ) 0.5 mg/0.5 mL pen injector Active 0.5 MG SC EVERY WEEK June 20, 2023 12:00am 1 ml tildrakizumab-asmn 100 mg/ml prefilled syringe (9 sources) Interleukin-23 Antagonist Start: 09-10-2021 Tildrakizumab-Asmn (Ilumya) 100 mg/mL Syringe Active MG SC September 10, 2021 12:00am [id number] Completed/Discontinued Medications Medication Drug Class(es) Dates Sig (Normalized) Sig (Original) acetaminophen 325 mg / oxyCODONE hydrochloride 5 mg oral tablet (11 sources) Opioid Agonist Start: 09-18-2019 End: 09-21-2019 take 1 tablet by mouth every six hours as needed Oxycodone-Acetaminop hen Discontinued 1 TABLET PO EVERY 6 HOURS NEEDED 12 September 18, 2019 September 21, 2019 12:02am cholecalciferol 0.025 mg oral capsule (5 sources) Vitamin D Start: 05-15-2023 End: 06-20-2023 take 25 ug by mouth once daily Cholecalciferol (Vitamin D3) Discontinued 25 MCG PO DAILY May 15, 2023 1:00am June 20, 2023 9:06pm doxycycline monohydrate 100 mg oral capsule (11 sources) Tetracycline-clas s Drug Start: 09-11-2018 End: 09-13-2018 take 200 mg by mouth once daily Doxycycline Monohydrate Discontinued 200 MG PO DAILY 2 September 11, 2018 12:00am September 13, 2018 12:07am etodolac 300 mg oral capsule (11 sources) Nonsteroidal Anti-inflammatory Drug Start: 05-10-2016 End: 09-11-2018 take 300 mg by mouth three times daily at mealtime Etodolac Discontinued 300 MG PO 3 TIMES DAILY WITH MEALS May 10, 2016 1:00am September 11, 2018 2:31pm causes drowsiness Problems Active Problems Problem Classification Problem Date Documented Da te Episodic/Chronic Abdominal pain (3 sources) Right flank pain; Translations: [Unspecified abdominal pain] 06-18-2023 Episodic Calculus of urinary tract (16 sources) Urolithiasis ; Translations: [Urinary calculus, unspecified] Onset: 08-27-2024 09-19-2019 Episodic Genitourinary symptoms and ill-defined conditions (13 sources) Blood in urine; Translations: [Hematuria, unspecified] 09-19-2019 Episodic Other nutritional; endocrine; and metabolic disorders (1 source) Obesity, unspecified; Translations: [Obesity, unspecified] Onset: 03-28-2024 Chronic Other nutritional; endocrine; and metabolic disorders (1 source) Hypercalcemia; Translations: [Hypercalcemia] Onset: 09-12-2023 Chronic Other upper respiratory infections (4 sources) Viral upper respiratory tract infection; Translations: [Acute upper respiratory infection, unspecified] Onset: 08-02-2024 05-07-2023 Episodic Sprains and strains (9 sources) Sprain of foot; Translations: [Unspecified sprain of left foot, initial encounter] 09-19-2021 Episodic Superficial injury; contusion (20 sources) Insect bite of lower limb; Translations: [Insect bite (nonvenomous), right thigh, initial encounter] 09-19-2021 Episodic Thyroid disorders (6 sources) Hypothyroidism; Translations: [Hypothyroidism, unspecified] Onset: 07-21-2024 05-15-2023 Chronic Past or Other Problems Problem Classification Problem Date Documented Da te Episodic/Chronic Nonmalignant breast conditions (11 sources) Breast lump; Translations: [Unspecified lump in the right breast, unspecified quadrant] Onset: 11-22-2023 05-15-2023 Episodic Otitis media and related conditions (1 source) Dysfunction of right eustachian tube; Translations: [Unspecified Eustachian tube disorder, right ear] 06-22-2023 Episodic Results Test Name Value Interpretation Reference Range Facility UA DIP, URINE (POC)on 2024 BILIRUBIN UA (POCT) Negative Negative [facility] CLARITY UA (POCT) Clear [facility] COLOR UA (POCT) Leonila [facility] GLUCOSE UA (POCT) Negative Negative mg/dL [facility] Hemoglobin Ql (U) Large Abnormal Negative [facility] Interpretation and review of laboratory results Abnormal [facility] KETONE UA (POCT) Negative Negative mg/dL [facility] LEUKOCYTES UA (POCT) Negative Negative [facility] NITRITE UA (POCT) Negative Negative [facility] PH UA (POCT) 7 4.5 - 8.0 [facility] Protein Ql (U) Negative Negative mg/dL [facility] SPECIFIC GRAVITY UA (POCT) 1.02 1.005 - 1.030 [facility] UROBILINOGEN UA (POCT) 0.2 Willa l E.U./dL [facility] Location:[facility], [address] [place] [address], [place], [place], [id number] [place] [address] POINT OF CARE [facility] CNOVon 08-02-2024 CNOV Office Visit (UCWSTR ) ----- ASTON GUEVARA ([id number]) 1990 F Date Time Provider Department 08/02/24 9:30 AM YAMILEX SHERIFF YORDY During your visit today, we recorded the following information about you: Temperature Pulse Respiration Blood pressure 99.3 degrees 90/minute 12/minute 122/82 Weight Height 85.2 kg 1.676 m Yamilex Sheriff APRN.MULTIMEDIA EDITOR 08/02/2024 10:34 AM Signed Subjective HPI Aston presents today with one day hx of sorethroat and swollen glands on the right side, the patient states she feels well. 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 PAST MEDICAL HISTORY Diagnosis Date Hypothyroidism Psoriasis Renal calculi PAST SURGICAL HISTORY Procedure Laterality Date NONE ALLERGIES Patient has no known allergies. MEDICATIONS semaglutide (OZEMPIC SUBCUTANEOUS) Inject subcutaneously. FAMILY HISTORY Problem Relation Age of Onset Breast Cancer Maternal Aunt Cancer Maternal Aunt BRAIN Cancer Paternal Uncle BONE MARROW Heart Maternal Grandfather Alcohol/Drug Father Allergies Mother Diabetes Maternal Grandmother Social History Tobacco Use Smoking status: Former Current packs/day: 0.50 Average packs/day: 0.5 packs/day for 1 year (0.5 ttl pk-yrs) Types: Cigarettes Passive exposure: Past Smokeless tobacco: Never Substance Use Topics Alcohol use: No Drug use: No Review of Systems Constitutional: Positive for malaise/fatigue. HENT: Positive for sore throat. Eyes: Negative. Respiratory: Negative. Cardiovascular: Negative. Gastrointestinal: Negative. Genitourinary: Negative. Musculoskeletal: Negative. Neurological: Negative. Endo/Heme/Allergies: Negative. Psychiatric/Behavioral: Negative. All other systems reviewed and are negative. Objective Physical Exam Vitals and nursing note reviewed. Constitutional: Appearance: Normal appearance. HENT: Head: Normocephalic and atraumatic. Right Ear: Tympanic membrane, ear canal and external ear normal. Left Ear: Tympanic membrane, ear canal and external ear normal. Nose: Nose normal. Mouth/Throat: Mouth: Mucous membranes are moist. Pharynx: Oropharyngeal exudate present. No posterior oropharyngeal erythema. Eyes: Extraocular Movements: Extraocular movements intact. Pupils: Pupils are equal, round, and reactive to light. Cardiovascular: Rate and Rhythm: Normal rate and regular rhythm. Pulses: Normal pulses. Heart sounds: Normal heart sounds. Pulmonary: Effort: Pulmonary effort is normal. Breath sounds: Normal breath sounds. Abdominal: General: Abdomen is flat. Bowel sounds are normal. Musculoskeletal: General: Normal range of motion. Cervical back: Normal range of motion and neck supple. Lymphadenopathy: Cervical: Cervical adenopathy present. Skin: General: Skin is warm and dry. Capillary Refill: Capillary refill takes less than 2 seconds. Neurological: General: No focal deficit present. Mental Status: She is alert and oriented to person, place, and time. Psychiatric: Mood and Affect: Mood normal. Behavior: Behavior normal. ASSESSMENT/PLAN: 1. Sore throat - ICD9: 462, ICD10: J02.9 - suspect viral - Rapid Strep negative in the office today - Contagious dz precautions discussed- including considered contagious until on antibiotics for 24 hours - The patient should follow up in 3-5 days if symptoms persist or worsen - Call back if drooling, increased temperature, symptoms of dehydration and/or still sick in one week - STREP A MOLECULAR (POC) - consider mono and labs if not improved in 5-7 days Rest Motrin as needed Yamilex Sheriff APRN.MULTIMEDIA EDITOR Allergies As of Date: 08/02/2024 (No Known Allergies) Date Reviewed: 08/02/2024 Reviewed by: Lilibeth Mccloud LPN - Fully Assessed Reason for Visit: Same Day Appointment [255] Cmt: lymph node swollen x 1 day scratchy throat, no other symptoms Primary Visit Diagnosis:Sore throat [J02.9] Order(s):STREP A MOLECULAR (POC) [9781302] Order #: [id number]. #:[id number] 21-LAB Prescriptions as of 08/02/2024 - semaglutide (OZEMPIC SUBCUTANEOUS) Inject subcutaneously. Problem List As Of Date: 08/02/2024 (None) Encounter Status:Closed by YAMILEX SHERIFF on 08/02/24 Normal [facility] STREP A MOLECULAR (POC)on Procedural Control Valid [facility] Strep A (POCT) Negative Negative [facility] CBC W/Diff, Automatedon 06-18 Absolute Lymph 1.40 X10 3/uL Normal 0.83-4.51 [facility] Comment on above: Order Comment: Order Date: 07/15/24 Order Info: 0184-1 - CBCD Performed By: #### L 500.4050, L100.0100, [id number] #### [facility] [address] [place], [place], [id number] Absolute Neut 5.0 X10 3/uL Normal 2.0-7.7 [facility] Comment on above: Order Comment: Order Date: 07/15/24 Order Info: 0184-1 - CBCD Performed By: #### L 500.4050, L100.0100, [id number] #### [facility] [address] [place], [address] Basophils/100 WBC (Bld) 0.7 % Normal 0-1 [facility] Comment on above: Order Comment: Order Date: 07/15/24 Order Info: 0184-1 - CBCD Performed By: #### L 500.4050, L100.0100, [id number] #### [facility] [address] [place], [address] Eosinophils/100 WBC (Bld) 0.4 % Normal 0-5 [facility] Comment on above: Order Comment: Order Date: 07/15/24 Order Info: 0184-1 - CBCD Performed By: #### L 500.4050, L100.0100, [id number] #### [facility] [address] [place], [address] Erythrocyte distribution width (RBC) [Ratio] 12.6 % Normal 11.6-14.6 [facility] Comment on above: Order Comment: Order Date: 07/15/24 Order Info: 0184-1 - CBCD Performed By: #### L 500.4050, L100.0100, [id number] #### [facility] [address] [place], [address] Hematocrit (Bld) [Volume fraction] 42.2 % Normal 37-47 [facility] Comment on above: Order Comment: Order Date: 07/15/24 Order Info: 0184-1 - CBCD Performed By: #### L 500.4050, L100.0100, [id number] #### [facility] [address] [place], [address] Hemoglobin (Bld) [Mass/Vol] 14.3 g/dL Normal 12.0-15.0 [facility] Comment on above: Order Comment: Order Date: 07/15/24 Order Info: 0184- - CBCD Performed By: #### L 500.4050, L100.0100, [id number] #### [facility] [address] [place], [address] IG% 0.300 Normal 0.0-0.9 [facility] Comment on above: Order Comment: Order Date: 07/15/24 Order Info: 018- - CBCD Result Comment: IG% - Immature Granulocytes (promyelocytes, myelocytes and metamyelocytes) > 1% indicates that a LEFT SHIFT is Present. Performed By: #### L 500.4050, L100.0100, [id number] #### [facility] [address] [place], [address] Lymphocytes/100 WBC (Bld) 20.4 % Normal 19-41 [facility] Comment on above: Order Comment: Order Date: 07/15/24 Order Info: 01806-17 - CBCD Performed By: #### L 500.4050, L100.0100, [id number] #### [facility] [address] [place], [address] MCH (RBC) [Entitic mass] 29.7 pg Normal 27.0-32.0 [facility] Comment on above: Order Comment: Order Date: 07/15/24 Order Info: 0184- - CBCD Performed By: #### L 500.4050, L100.0100, [id number] #### [facility] [address] [place], [address] MCHC (RBC) [Mass/Vol] 33.9 g/dL Normal 32-36 [facility] Comment on above: Order Comment: Order Date: 07/15/24 Order Info: 0184- - CBCD Performed By: #### L 500.4050, L100.0100, [id number] #### [facility] [address] [place], [address] MCV (RBC) [Entitic vol] 87.7 fL Normal 81-99 [facility] Comment on above: Order Comment: Order Date: 07/15/24 Order Info: 0184-1 - CBCD Performed By: #### L 500.4050, L100.0100, [id number] #### [facility] [address] [place], [address] Monocytes/100 WBC (Bld) 4.8 % Normal 0-10 [facility] Comment on above: Order Comment: Order Date: 07/15/24 Order Info: 0184-1 - CBCD Performed By: #### L 500.4050, L100.0100, [id number] #### [facility] [address] [place], [address] Neutrophils/100 WBC (Bld) 73.4 % High 47-70 [facility] Comment on above: Order Comment: Order Date: 07/15/24 Order Info: 0184- - CBCD Performed By: #### L 500.4050, L100.0100, [id number] #### [facility] [address] [place], [address] Nucleated RBC (Bld) [#/Vol] 0 10*3/uL Normal 0-5 [facility] Comment on above: Order Comment: Order Date: 07/15/24 Order Info: 0184-1 - CBCD Performed By: #### L 500.4050, L100.0100, [id number] #### [facility] [address] [place], [address] Platelet mean volume (Bld) [Entitic vol] 11.5 fL Normal 6.2-12.0 [facility] Comment on above: Order Comment: Order Date: 07/15/24 Order Info: 0184-1 - CBCD Performed By: #### L 500.4050, L100.0100, [id number] #### [facility] [address] [place], [address] Platelets (Bld) [#/Vol] 277 10*3/uL Normal 150-450 [facility] Comment on above: Order Comment: Order Date: 07/15/24 Order Info: 0184-1 - CBCD Performed By: #### L 500.4050, L100.0100, [id number] #### [facility] [address] [place], [address] RBC (Bld) [#/Vol] 4.81 10*6/uL Normal 4.2-5.4 [facility] Comment on above: Order Comment: Order Date: 07/15/24 Order Info: 018- - CBCD Performed By: #### L 500.4050, L100.0100, [id number] #### [facility] [address] [place], [address] RDW SD 40.8 fl Normal 35.1-43.9 [facility] Comment on above: Order Comment: Order Date: 07/15/24 Order Info: 018- - CBCD Performed By: #### L 500.4050, L100.0100, [id number] #### [facility] [address] [place], [address] WBC (Bld) [#/Vol] 6.9 10*3/uL Normal 4.4-11.0 [facility] Comment on above: Order Comment: Order Date: 07/15/24 Order Info: 0184-1 - CBCD Performed By: #### L 500.4050, L100.0100, [id number] #### [facility] [address] [place], [address] Comprehensive Metabolic Prof ilon 07-15-2024 Albumin [Mass/Vol] 4.4 g/dL Normal 3.5-5.0 [facility] Comment on above: Order Comment: Order Date: 07/15/24 Order Info: 0786-1 - CMP Order Info: 3016-3 - TSH Performed By: #### L 500.4050, L100.0100, [id number] #### [facility] [address] [place], [address] Albumin/Globulin [Mass ratio] 1.5 {ratio} Normal 0.9-2.4 [facility] Comment on above: Order Comment: Order Date: 07/15/24 Order Info: 0786-1 - CMP Order Info: 3015-3 - TSH Performed By: #### L 500.4050, L100.0100, [id number] #### [facility] [address] [place], [address] ALK PHOS 54 U/L Normal 35-104 [facility] Comment on above: Order Comment: Order Date: 07/15/24 Order Info: 0786-1 - CMP Order Info: 3015-3 - TSH Performed By: #### L 500.4050, L100.0100, [id number] #### [facility] [address] [place], [address] ALT [Catalytic activity/Vol] 6 U/L Normal <=34 [facility] Comment on above: Order Comment: Order Date: 07/15/24 Order Info: 0786-1 - CMP Order Info: 3015-3 - TSH Performed By: #### L 500.4050, L100.0100, [id number] #### [facility] [address] [place], [address] AST [Catalytic activity/Vol] 13 U/L Normal <=31 [facility] Comment on above: Order Comment: Order Date: 07/15/24 Order Info: 0786-1 - CMP Order Info: 3016-3 - TSH Performed By: #### L 500.4050, L100.0100, [id number] #### [facility] [address] [place], [address] Bilirubin [Mass/Vol] 0.35 mg/dL Normal 0.00-1.30 [facility] Comment on above: Order Comment: Order Date: 07/15/24 Order Info: 0786-1 - CMP Order Info: 301-3 - TSH Performed By: #### L 500.4050, L100.0100, [id number] #### [facility] [address] [place], [address] BUN/CRE 23.5 RATIO High 10-20 [facility] Comment on above: Order Comment: Order Date: 07/15/24 Order Info: 0786-1 - CMP Order Info: 3 - TSH Performed By: #### L 500.4050, L100.0100, [id number] #### [facility] [address] [place], [address] Calcium [Mass/Vol] 9.0 mg/dL Normal 7.6-11.0 [facility] Comment on above: Order Comment: Order Date: 07/15/24 Order Info: 0786-1 - CMP Order Info: 3 - TSH Performed By: #### L 500.4050, L100.0100, [id number] #### [facility] [address] [place], [address] Chloride [Moles/Vol] 104 mmol/L Normal 98-108 [facility] Comment on above: Order Comment: Order Date: 07/15/24 Order Info: 0786-1 - CMP Order Info: 301-3 - TSH Performed By: #### L 500.4050, L100.0100, [id number] #### [facility] [address] [place], [address] CO2 [Moles/Vol] 22.9 mmol/L Normal 21.0-32.0 [facility] Comment on above: Order Comment: Order Date: 07/15/24 Order Info: 0786-1 - CMP Order Info: 3 - TSH Performed By: #### L 500.4050, L100.0100, [id number] #### [facility] [address] [place], [address] Creatinine [Mass/Vol] 0.72 mg/dL Normal 0.70-1.20 [facility] Comment on above: Order Comment: Order Date: 07/15/24 Order Info: 0786-1 - CMP Order Info: 3 - TSH Performed By: #### L 500.4050, L100.0100, [id number] #### [facility] [address] [place], [address] GAP 12 Normal 5-15 [facility] Comment on above: Order Comment: Order Date: 07/15/24 Order Info: 0786-1 - CMP Order Info: 3015-05 - TSH Performed By: #### L 500.4050, L100.0100, [id number] #### [facility] [address] [place], [address] GFR/1.73 sq M.predicted among non-blacks MDRD (S/P/Bld) [Vol rate/Area] 111 mL/min/{1.73_m2} Normal >60 [facility] Comment on above: Order Comment: Order Date: 07/15/24 Order Info: 0786-1 - CMP Order Info: 3 - TSH Result Comment: mL/m in/1.73m2 CKD-EPI Creatinine Equation (2020) Performed By: #### L 500.4050, L100.0100, [id number] #### [facility] [address] [place], [address] Globulin (S) [Mass/Vol] 2.9 g/dL Normal 2.2-4.2 [facility] Comment on above: Order Comment: Order Date: 07/15/24 Order Info: 0786-1 - CMP Order Info: 3015-05 - TSH Performed By: #### L 500.4050, L100.0100, [id number] #### [facility] [address] [place], [address] Glucose [Mass/Vol] 92 mg/dL Normal 70-99 [facility] Comment on above: Order Comment: Order Date: 07/15/24 Order Info: 07 - [facility] Order Info: 3 - TSH Performed By: #### L 500.4050, L100.0100, [id number] #### [facility] [address] [place], [address] Potassium [Moles/Vol] 3.9 mmol/L Normal 3.3-5.1 [facility] Comment on above: Order Comment: Order Date: 07/15/24 Order Info: 07 - CMP Order Info: 3015-05 - TSH Performed By: #### L 500.4050, L100.0100, [id number] #### [facility] [address] [place], [address] Sodium [Moles/Vol] 138 mmol/L Normal 133-145 [facility] Comment on above: Order Comment: Order Date: 07/15/24 Order Info: 0786- - CMP Order Info: 3015-05 - TSH Performed By: #### L 500.4050, L100.0100, [id number] #### [facility] [address] [place], [address] T PROT 7.2 g/dL Normal 5.9-8.4 [facility] Comment on above: Order Comment: Order Date: 07/15/24 Order Info: 07861 - CMP Order Info: 3 - TSH Performed By: #### L 500.4050, L100.0100, [id number] #### [facility] [address] [place], [address] Urea nitrogen [Mass/Vol] 17 mg/dL Normal 4-19 [facility] Comment on above: Order Comment: Order Date: 07/15/24 Order Info: 0786-1 - [facility] Order Info: 3016-3 - TSH Performed By: #### L 500.4050, L100.0100, [id number] #### [facility] [address] [place], [address] Thyroid Stim Hormone (TSH)on 07-15-2024 TSH 3.970 uIU/mL Normal 0.300-4.200 [facility] Comment on above: Order Comment: Order Date: 07/15/24 Order Info: 0786-1 - CMP Order Info: 3016-3 - TSH Performed By: #### L 500.4050, L100.0100, [id number] #### [facility] [address] [place], [place], [address] Vitamin D,25 Hydroxyon 07-15 Vitamin D 25-OH 57.5 ng/mL Normal 30-100 [facility] Comment on above: Order Comment: Order Date: 07/15/24 Order Info: 0786-1 - CMP Order Info: 3016-3 - TSH Result Comment: Dory min D Status Deficiency: <20 ng/mL (50nmol/L) Insufficiency: 20-30 ng/mL (50-75 nmol/L) Sufficiency: 30-100 ng/mL (75-250 nmol/L) Toxicity: >100 ng/mL (>250 nmol/L) Performed By: #### L 506.1001 #### [facility] [address] [place], [address] CBC W/Diff, Automatedon 02-16 Absolute Lymph 2.69 X10 3/uL Normal 0.83-4.51 [facility] Comment on above: Order Comment: Order Date: 08/29/23 Order Info: 0184-1 - CBCD Performed By: #### L 506.1000, L100.0100, L500.4050, L501.9520 #### [facility] [address] [place], [address] Absolute Neut 6.6 X10 3/uL Normal 2.0-7.7 [facility] Comment on above: Order Comment: Order Date: 08/29/23 Order Info: 0184-1 - CBCD Performed By: #### L 506.1000, L100.0100, L500.4050, L501.9520 #### [facility] [address] [place], [address] Basophils/100 WBC (Bld) 0.8 % Normal 0-1 [facility] Comment on above: Order Comment: Order Date: 08/29/23 Order Info: 0184-1 - CBCD Performed By: #### L 506.1000, L100.0100, L500.4050, [id number] #### [facility] [address] [place], [address] Eosinophils/100 WBC (Bld) 1.3 % Normal 0-5 [facility] Comment on above: Order Comment: Order Date: 08/29/23 Order Info: 0184- - CBCD Performed By: #### L 506.1000, L100.0100, L500.4050, [id number] #### [facility] [address] [place], [address] Erythrocyte distribution width (RBC) [Ratio] 13.1 % Normal 11.6-14.6 [facility] Comment on above: Order Comment: Order Date: 08/29/23 Order Info: 0184-1 - CBCD Performed By: #### L 506.1000, L100.0100, L500.4050, [id number] #### [facility] [address] [place], [address] Hematocrit (Bld) [Volume fraction] 40.9 % Normal 37-47 [facility] Comment on above: Order Comment: Order Date: 08/29/23 Order Info: 0184-1 - CBCD Performed By: #### L 506.1000, L100.0100, L500.4050, L501.9520 #### [facility] [address] [place], [address] Hemoglobin (Bld) [Mass/Vol] 13.5 g/dL Normal 12.0-15.0 [facility] Comment on above: Order Comment: Order Date: 08/29/23 Order Info: 018- - CBCD Performed By: #### L 506.1000, L100.0100, L500.4050, [id number] #### [facility] [address] [place], [address] IG% 0.700 Normal 0.0-0.9 [facility] Comment on above: Order Comment: Order Date: 08/29/23 Order Info: 183-03 - CBCD Result Comment: IG% - Immature Granulocytes (promyelocytes, myelocytes and metamyelocytes) > 1% indicates that a LEFT SHIFT is Present. Performed By: #### L 506.1000, L100.0100, L500.4050, L501.9520 #### [facility] [address] [place], [address] Lymphocytes/100 WBC (Bld) 26.6 % Normal 19-41 [facility] Comment on above: Order Comment: Order Date: 08/29/23 Order Info: 018- - CBCD Performed By: #### L 506.1000, L100.0100, L500.4050, [id number] #### [facility] [address] [place], [address] MCH (RBC) [Entitic mass] 29.4 pg Normal 27.0-32.0 [facility] Comment on above: Order Comment: Order Date: 08/29/23 Order Info: 018- - CBCD Performed By: #### L 506.1000, L100.0100, L500.4050, L501.9520 #### [facility] [address] [place], [address] MCHC (RBC) [Mass/Vol] 33.0 g/dL Normal 32-36 [facility] Comment on above: Order Comment: Order Date: 08/29/23 Order Info: 0184-1 - CBCD Performed By: #### L 506.1000, L100.0100, L500.4050, L501.9520 #### [facility] [address] [place], [address] MCV (RBC) [Entitic vol] 89.1 fL Normal 81-99 [facility] Comment on above: Order Comment: Order Date: 08/29/23 Order Info: 0184-1 - CBCD Performed By: #### L 506.1000, L100.0100, L500.4050, [id number] #### [facility] [address] [place], [address] Monocytes/100 WBC (Bld) 5.8 % Normal 0-10 [facility] Comment on above: Order Comment: Order Date: 08/29/23 Order Info: 0184-1 - CBCD Performed By: #### L 506.1000, L100.0100, L500.4050, [id number] #### [facility] [address] [place], [address] Neutrophils/100 WBC (Bld) 64.8 % Normal 47-70 [facility] Comment on above: Order Comment: Order Date: 08/29/23 Order Info: 0184-1 - CBCD Performed By: #### L 506.1000, L100.0100, L500.4050, [id number] #### [facility] [address] [place], [address] Nucleated RBC (Bld) [#/Vol] 0 10*3/uL Normal 0-5 [facility] Comment on above: Order Comment: Order Date: 08/29/23 Order Info: 0184-1 - CBCD Performed By: #### L 506.1000, L100.0100, L500.4050, L501.9520 #### [facility] [address] [place], [address] Platelet mean volume (Bld) [Entitic vol] 11.6 fL Normal 6.2-12.0 [facility] Comment on above: Order Comment: Order Date: 08/29/23 Order Info: 0184-1 - CBCD Performed By: #### L 506.1000, L100.0100, L500.4050, [id number] #### [facility] [address] [place], [address] Platelets (Bld) [#/Vol] 326 10*3/uL Normal 150-450 [facility] Comment on above: Order Comment: Order Date: 08/29/23 Order Info: 0184-1 - CBCD Performed By: #### L 506.1000, L100.0100, L500.4050, [id number] #### [facility] [address] [place], [address] RBC (Bld) [#/Vol] 4.59 10*6/uL Normal 4.2-5.4 [facility] Comment on above: Order Comment: Order Date: 08/29/23 Order Info: 0184-1 - CBCD Performed By: #### L 506.1000, L100.0100, L500.4050, [id number] #### [facility] [address] [place], [address] RDW SD 42.5 fl Normal 35.1-43.9 [facility] Comment on above: Order Comment: Order Date: 08/29/23 Order Info: 0184-1 - CBCD Performed By: #### L 506.1000, L100.0100, L500.4050, [id number] #### [facility] [address] [place], [address] WBC (Bld) [#/Vol] 10.1 10*3/uL Normal 4.4-11.0 [facility] Comment on above: Order Comment: Order Date: 08/29/23 Order Info: 0184-1 - CBCD Performed By: #### L 506.1000, L100.0100, L500.4050, L501.9520 #### [facility] [address] [place], [address] Comprehensive Metabolic Prof ilon 02-26-2024 Albumin [Mass/Vol] 4.0 g/dL Normal 3.2-5.0 [facility] Comment on above: Order Comment: Order Date: 08/29/23 Order Info: 0786-1 - CMP Order Info: 3016-3 - TSH Performed By: #### L 506.1000, L100.0100, L500.4050, L501.9520 #### [facility] [address] [place], [address] Albumin/Globulin [Mass ratio] 1.2 {ratio} Normal 0.9-2.4 [facility] Comment on above: Order Comment: Order Date: 08/29/23 Order Info: 0786-1 - CMP Order Info: 3016-3 - TSH Performed By: #### L 506.1000, L100.0100, L500.4050, L501.9520 #### [facility] [address] [place], [address] ALK P 61 U/L Normal 45-117 [facility] Comment on above: Order Comment: Order Date: 08/29/23 Order Info: 0786-1 - CMP Order Info: 3016-3 - TSH Performed By: #### L 506.1000, L100.0100, L500.4050, L501.9520 #### [facility] [address] [place], [address] ALT [Catalytic activity/Vol] 11 U/L Low 13-56 [facility] Comment on above: Order Comment: Order Date: 08/29/23 Order Info: 0786-1 - [facility] Order Info: 301-3 - TSH Performed By: #### L 506.1000, L100.0100, L500.4050, L501.9520 #### [facility] [address] [place], [address] AST [Catalytic activity/Vol] 11 U/L Low 15-37 [facility] Comment on above: Order Comment: Order Date: 08/29/23 Order Info: 0786- - [facility] Order Info: 3013 - TSH Performed By: #### L 506.1000, L100.0100, L500.4050, L501.9520 #### [facility] [address] [place], [address] Bilirubin [Mass/Vol] 0.50 mg/dL Normal 0.20-1.00 [facility] Comment on above: Order Comment: Order Date: 08/29/23 Order Info: 0786- - [facility] Order Info: 301-3 - TSH Result Comment: For patients on eltrombopag therapy, use of Dimension [place] TBIL is not recommended. Performed By: #### L 506.1000, L100.0100, L500.4050, L501.9520 #### [facility] [address] [place], [address] BUN/CRE 25.9 RATIO High 10-20 [facility] Comment on above: Order Comment: Order Date: 08/29/23 Order Info: 0786- - [facility] Order Info: 30163 - TSH Performed By: #### L 506.1000, L100.0100, L500.4050, L501.9520 #### [facility] [address] [place], [address] CA,Total 9.1 mg/dL Normal 8.5-10.1 [facility] Comment on above: Order Comment: Order Date: 08/29/23 Order Info: 0786-1 - CMP Order Info: 30163 - TSH Performed By: #### L 506.1000, L100.0100, L500.4050, L501.9520 #### [facility] [address] [place], [address] Chloride [Moles/Vol] 105 mmol/L Normal 98-107 [facility] Comment on above: Order Comment: Order Date: 08/29/23 Order Info: 0786-1 - CMP Order Info: 3015-05 - TSH Performed By: #### L 506.1000, L100.0100, L500.4050, L501.9520 #### [facility] [address] [place], [address] CO2 [Moles/Vol] 28.0 mmol/L Normal 21.0-32.0 [facility] Comment on above: Order Comment: Order Date: 08/29/23 Order Info: 0786- - CMP Order Info: 3015-05 - TSH Performed By: #### L 506.1000, L100.0100, L500.4050, L501.9520 #### [facility] [address] [place], [address] Creatinine [Mass/Vol] 0.66 mg/dL Normal 0.55-1.02 [facility] Comment on above: Order Comment: Order Date: 08/29/23 Order Info: 0786-1 - CMP Order Info: 3015-05 - TSH Result Comment: The validity of the calculated GFR GFRAA in patients over 70 years has not been determined. Clinical correlation is essential. Performed By: #### L 506.1000, L100.0100, L500.4050, L501.9520 #### [facility] [address] [place], [address] EST GFR - AA 131 mL/min Normal >60 [facility] Comment on above: Order Comment: Order Date: 08/29/23 Order Info: 0786-1 - CMP Order Info: 3015-05 - TSH Result Comment: Afri can Hungarian GFR Calc Performed By: #### L 506.1000, L100.0100, L500.4050, L501.9520 #### [facility] [address] [place], [address] GAP 5 Normal 5-15 [facility] Comment on above: Order Comment: Order Date: 08/29/23 Order Info: 0786-1 - CMP Order Info: 3013 - TSH Performed By: #### L 506.1000, L100.0100, L500.4050, L501.9520 #### [facility] [address] [place], [address] GFR/1.73 sq M.predicted among non-blacks MDRD (S/P/Bld) [Vol rate/Area] 108 mL/min/{1.73_m2} Normal >60 [facility] Comment on above: Order Comment: Order Date: 08/29/23 Order Info: 0786- - CMP Order Info: 3 - TSH Result Comment: Non- GFR Calc Performed By: #### L 506.1000, L100.0100, L500.4050, L501.9520 #### [facility] [address] [place], [address] Globulin (S) [Mass/Vol] 3.2 g/dL Normal 2.2-4.2 [facility] Comment on above: Order Comment: Order Date: 08/29/23 Order Info: 0786-1 - CMP Order Info: 30108-19 - TSH Performed By: #### L 506.1000, L100.0100, L500.4050, L501.9520 #### [facility] [address] [place], [address] Glucose [Mass/Vol] 83 mg/dL Normal 74-106 [facility] Comment on above: Order Comment: Order Date: 08/29/23 Order Info: 0786-1 - CMP Order Info: 3016-3 - TSH Performed By: #### L 506.1000, L100.0100, L500.4050, L501.9520 #### [facility] [address] [place], [address] Potassium [Moles/Vol] 3.4 mmol/L Low 3.5-5.1 [facility] Comment on above: Order Comment: Order Date: 08/29/23 Order Info: 785-03 - CMP Order Info: 3 - TSH Performed By: #### L 506.1000, L100.0100, L500.4050, L501.9520 #### [facility] [address] [place], [address] Sodium [Moles/Vol] 138 mmol/L Normal 136-145 [facility] Comment on above: Order Comment: Order Date: 08/29/23 Order Info: 785-03 - [facility] Order Info: 3 - TSH Performed By: #### L 506.1000, L100.0100, L500.4050, L501.9520 #### [facility] [address] [place], [address] T PROT 7.2 g/dL Normal 6.4-8.2 [facility] Comment on above: Order Comment: Order Date: 08/29/23 Order Info: 785-03 - [facility] Order Info: 3015-05 - TSH Performed By: #### L 506.1000, L100.0100, L500.4050, L501.9520 #### [facility] [address] [place], [address] Urea nitrogen [Mass/Vol] 17 mg/dL Normal 7-18 [facility] Comment on above: Order Comment: Order Date: 08/29/23 Order Info: 07 - [facility] Order Info: 3 - TSH Performed By: #### L 506.1000, L100.0100, L500.4050, L501.9520 #### [facility] [address] [place], [address] Thyroid Stim Hormone (TSH)on 02-26-2024 TSH 3.340 uIU/mL Normal 0.358-3.740 [facility] Comment on above: Order Comment: Order Date: 08/29/23 Order Info: 0786-1 - CMP Order Info: 3016-3 - TSH Performed By: #### L 506.1000, L100.0100, L500.4050, L501.9520 #### [facility] [address] [place], [address] Vitamin D,25 Hydroxyon 02-25 Vitamin D 25-OH 21.8 ng/mL Normal [facility] Comment on above: Order Comment: Order Date: 08/29/23 Order Info: 76513-2 - VITD25 Result Comment: Dory min D 25(OH) Status Range Deficiency <20 ng/mL (50nmol/L) Insufficiency 20 - 30 ng/mL (50 - 75 nmol/L) Sufficiency 30 - 100 ng/mL (75 - 250 nmol/L) Toxicity >100 ng/mL (>250 nmol/L) Performed By: #### L 506.1000, L100.0100, L500.4050, L501.9520 #### [facility] [address] [place], [address] Breast Limited Unilateralon 11-21-2023 Breast Limited Unilateral [facility] [address] [place] [address] Breast Limited Unilateral MR#: [id number] Acct: [id number] Name: ASTON GUEVARA Rep #: [id number] : 1990 F 33 From: Alex hopper MD PCP: Dr. Delilah Machado MD Status: REG CLI Study: Breast Limited Unilateral Date of Exam: Exam# [id number] Ordering Dr: Nadeem Sweet [id number] STUDY: ULTRASOUND BREAST - RIGHT REASON FOR EXAM: Female, 33 years old. Six-month follow-up of the right breast biopsy. TECHNIQUE: Axial and longitudinal images of the RIGHT breast were performed with a high resolution ultrasound transducer. # OF IMAGES: 8 COMPARISON: Comparison is made with prior sonogram of the right breast dated December 08, 2023. FINDINGS: RIGHT Breast: Stable 3.3 cm x 3.5 cm x 1.7 cm hypoechoic nodule at the 10:00 position breast at 4 cm from the nipple. This is unchanged. US/Breast Limited Unilateral IMPRESSION: Stable examination. ASSESSMENT CATEGORY: BIRADS Category 2: Benign. A letter regarding these results will be sent to the patient by the facility within 30 days. Electronically Signed: Alex Alvarado MD at 13:56 EDT Reading Location ID and State: [address] [place] [address] , Service support , CC: Dr. Nadeem Sweet MD; Dr. Delilah Machado MD [employer]: Signed Normal [facility] Calcium,Totalon 09-05-2023 CA,Total 9.6 mg/dL Normal 8.5-10.1 [facility] Comment on above: Performed By: #### L 501.2200 #### [facility] [address] [place], [address] UA DIP, URINE (POC)on 2023 BILIRUBIN UA (POCT) Small Abnormal Negative [facility] CLARITY UA (POCT) Clear [facility] COLOR UA (POCT) Yellow [facility] GLUCOSE UA (POCT) Negative Negative mg/dL [facility] Hemoglobin Ql (U) Large Abnormal Negative [facility] Interpretation and review of laboratory results Abnormal [facility] KETONE UA (POCT) Trace Negative mg/dL [facility] LEUKOCYTES UA (POCT) Negative [facility]) Negative Negative [facility] PH UA (POCT) 6.0 4.5 - 8.0 [facility] Protein Ql (U) 100 mg/dL Abnormal Negative [facility] SPECIFIC GRAVITY UA (POCT) >=1.030 1.005 - 1.030 [facility] UROBILINOGEN UA (POCT) 0.2 Willa l E.U./dL [facility] Location:[facility], [address] [place] [address], [place], [place], [id number] [place] [address] POINT OF CARE [facility] Serum or plasma thyroid stim ulating hormone (TSH) measurement (units/volume)Ordered By: Delilah Machado on 07-11-2023 TSH Qn 1.89 uIU/mL 0.358-3.74 [facility] Thin prep Papanicolaou smear with manual screeningOrdered By: Delilah Machado on 07-11-2023 Thin prep Papanicolaou smear with manual screening 1.20 ng/dL 0.76-1.46 [facility] STREP A MOLECULAR (POC)on Procedural Control Valid [facility] Strep A (POCT) Negative Negative [facility] Absolute lymphocyte countOrd ered By: Nima Rosario on 06-20-2023 Lymphocytes Auto (Unsp spec) [#/Vol] 0.83 10*3/uL 0.83-4.51 [facility] Automated lymphocyte count a s percentage of total leukocytesOrdered By: Nima Rosario on 06-20-2023 Lymphocytes/100 WBC Auto (Unsp spec) 4.6 % 19-41 [facility] Basophil percentageOrdered B y: Nima Rosario on 06-20-2023 Basophil percentage 0 SEEN /hpf 0-5 [facility] Basophils/100 WBC (Bld) 0.4 % 0-1 [facility] Chloride [Moles/Vol] 106 mmol/L 98-107 [facility] Eosinophils/100 WBC (Bld) 0.1 % 0-5 [facility] Glucose [Mass/Vol] 125 mg/dL 74-106 [facility] Comment on above: Fasting Glucose resu lt from 100 to 125 mg/dL suggests IMPAIRED HOMEOSTASIS per A.D.A. criteria. Hemoglobin (Bld) [Mass/Vol] 14.4 g/dL 12.0-15.0 [facility] Monocytes/100 WBC (Bld) 3.7 % 0-10 [facility] Neutrophils (Bld) [#/Vol] 16.3 10*3/uL 2.0-7.7 [facility] Neutrophils/100 WBC (Bld) 90.8 % 47-70 [facility] Potassium [Moles/Vol] 3.6 mmol/L 3.5-5.1 [facility] Sodium [Moles/Vol] 139 mmol/L 136-145 [facility] WBC (Bld) [#/Vol] 18.0 10*3/uL 4.4-11.0 [facility] Bilirubin Test strip Ql (U)O rdered By: Nima Rosario on 06-20-2023 Bilirubin Ql (U) Negative Negative [facility] Determination of erythrocyte mean corpuscular volume (MCV)Ordered By: Nima Rosario on 06-20-2023 MCV (RBC) [Entitic vol] 84.6 fL 81-99 [facility] Erythrocyte distribution wid th ratioOrdered By: Nima Rosario on 06-20-2023 Erythrocyte distribution width (RBC) [Ratio] 13.1 % 11.6-14.6 [facility] Erythrocyte distribution wid th standard deviationOrdered By: Nima Rosario on 06-20-2023 Erythrocyte distribution width (RBC) [Entitic vol] 39.5 fL 35.1-43.9 [facility] Hematocrit Auto (Bld) [Volum e fraction]Ordered By: Nima Rosario on 06-20-2023 Hematocrit (Bld) [Volume fraction] 42.4 % 37-47 [facility] Immature granulocytes/100 WB C Auto (Bld)Ordered By: Nima Rosario on 06-20-2023 Immature granulocytes/100 WBC (Bld) 0.400 % 0.0-0.9 [facility] Comment on above: IG% - Immature Granu locytes (promyelocytes, myelocytes and metamyelocytes) > 1% indicates that a LEFT SHIFT is Present. Ketones Test strip Ql (U)Ord ered By: Nima Rosario on 06-20-2023 Ketones Ql (U) 50 mg/dl Negative [facility] - Chemistry and C hemistry - challengeOrdered By: Nima Rosario on 06-20-2023 CO2 [Moles/Vol] 27.0 mmol/L 21.0-32.0 [facility] Urea nitrogen/Creatinine [Mass ratio] 14.3 mg/mg 10-20 [facility] - Hematology and Cell countsOrdered By: Nima Rosario on 06-20-2023 MCH (RBC) [Entitic mass] 28.7 pg 27.0-32.0 [facility] MCHC (RBC) [Mass/Vol] 34.0 g/dL 32-36 [facility] Nucleated RBC/100 WBC (Bld) [Ratio] 0 % 0-5 [facility] Platelet mean volume (Bld) [Entitic vol] 10.4 fL 6.2-12.0 [facility] Platelets (Bld) [#/Vol] 336 10*3/uL 150-450 [facility] Mucus LM Ql (Urine sed)Order ed By: Nima Rosario on 06-20-2023 Mucus Ql (Urine sed) 0 SEEN /hpf [facility] Nitrite Test strip Ql (U)Ord ered By: Nima Rosario on 06-20-2023 Nitrite Ql (U) Negative Negative [facility] No Panel InformationOrdered By: Nima Rosario on 06-20-2023 Urine RBC 5-10 SEEN /hpf 0-5 [facility] Estimated Creatinine Clearance Calc 96.87 ml/min [facility] Estimated GFR (MDRD) Amer 83 mL/min >60 [facility] Comment on above: GFR Calc Estimated GFR (MDRD) Non-Af Amer 68 mL/min >60 [facility] Comment on above: Non- GFR Calc Protein Test strip Ql (U)Ord ered By: Nima Rosario on 06-20-2023 Protein Ql (U) Negative Negative [facility] RBC Auto (Bld) [#/Vol]Ordere d By: Nima Rosario on 06-20-2023 RBC (Bld) [#/Vol] 5.01 10*6/uL 4.2-5.4 [facility] Serum or plasma calcium rohit urement (mass/volume)Ordered By: Nima Rosario on 06-20-2023 Calcium [Mass/Vol] 9.2 mg/dL 8.5-10.1 [facility] Serum or plasma choriogonado tropin detectionOrdered By: Nima Rosario on 06-20-2023 HCG ( test) Ql Negative [facility] Serum or plasma creatinine m easurement (mass/volume)Ordered By: Nima Rosario on 06-20-2023 Creatinine [Mass/Vol] 0.98 mg/dL 0.55-1.02 [facility] Comment on above: The validity of the calculated GFR & GFRAA in patients over 70 years has not been determined. Clinical correlation is essential. Serum or plasma urea nitroge n measurement (mass/volume)Ordered By: Nima Rosario on 06-20-2023 Urea nitrogen [Mass/Vol] 14 mg/dL 7-18 [facility] Squamous epithelial cells de tection in urine sediment by light microscopyOrdered By: Nima Rosario on 06-20-2023 Epithelial cells.squamous LM Ql (Urine sed) 0-5 SEEN /hpf 5-10 [facility] Thin prep Papanicolaou smear with manual screeningOrdered By: Nima Rosario on 06-20-2023 Thin prep Papanicolaou smear with manual screening 6 5-15 [facility] Urine blood detectionOrdered By: Nima Rosario on 06-20-2023 RBC Ql (U) 150 /ul Negative [facility] Urine clarityOrdered By: Janee Rosario on 06-20-2023 Clarity (U) Clear Clear [facility] Urine color determinationOrd ered By: Nima Rosario on 06-20-2023 Color (U) Straw Yellow [facility] Urine glucose detectionOrder ed By: Nima Rosario on 06-20-2023 Glucose Ql (U) Normal mg/dl Normal [facility] Urine leukocyte esterase det ection by dipstickOrdered By: Nima Rosario on 06-20-2023 Leukocyte esterase Test strip Ql (U) Negative Negative [facility] Urine pHOrdered By: Nima michel on 06-20-2023 pH (U) 7.0 [pH] 5.0 - 8.0 [facility] Urine sediment bacteria coun t by microscopy (number/high power field)Ordered By: Nima Rosario on 06-20-2023 Bacteria LM.HPF (Urine sed) [#/Area] RARE /hpf None Seen [facility] Urine specific gravity measu rementOrdered By: Nima Rosario on 06-20-2023 Specific gravity (U) [Rel density] 1.010 1.002-1.030 [facility] Urine urobilinogen measureme ntOrdered By: Nima Rosario on 06-20-2023 Urobilinogen Ql (U) Normal mg/dl Normal [facility] Absolute lymphocyte countOrd ered By: Nima Rosario on 06-18-2023 Lymphocytes Auto (Unsp spec) [#/Vol] 1.64 10*3/uL 0.83-4.51 [facility] Automated lymphocyte count a s percentage of total leukocytesOrdered By: Nima Rosario on 06-18-2023 Lymphocytes/100 WBC Auto (Unsp spec) 12.6 % 19-41 [facility] Basophil percentageOrdered B y: Nima Rosario on 06-18-2023 Basophil percentage 0-5 SEEN /hpf 0-5 [facility] Basophils/100 WBC (Bld) 0.4 % 0-1 [facility] Chloride [Moles/Vol] 106 mmol/L 98-107 [facility] Eosinophils/100 WBC (Bld) 0.4 % 0-5 [facility] Glucose [Mass/Vol] 105 mg/dL 74-106 [facility] Comment on above: Fasting Glucose resu lt from 100 to 125 mg/dL suggests IMPAIRED HOMEOSTASIS per A.D.A. criteria. Hemoglobin (Bld) [Mass/Vol] 13.8 g/dL 12.0-15.0 [facility] Monocytes/100 WBC (Bld) 4.2 % 0-10 [facility] Neutrophils (Bld) [#/Vol] 10.7 10*3/uL 2.0-7.7 [facility] Neutrophils/100 WBC (Bld) 82.1 % 47-70 [facility] Potassium [Moles/Vol] 3.8 mmol/L 3.5-5.1 [facility] Comment on above: Slight Hemolysis, Re sult may be falsely increased. Sodium [Moles/Vol] 140 mmol/L 136-145 [facility] WBC (Bld) [#/Vol] 13.0 10*3/uL 4.4-11.0 [facility] Bilirubin Test strip Ql (U)O rdered By: Nima Rosario on 06-18-2023 Bilirubin Ql (U) Negative Negative [facility] Determination of erythrocyte mean corpuscular volume (MCV)Ordered By: Nima Rosario on 06-18-2023 MCV (RBC) [Entitic vol] 85.6 fL 81-99 [facility] Erythrocyte distribution wid th ratioOrdered By: Nima Rosario on 06-18-2023 Erythrocyte distribution width (RBC) [Ratio] 13.1 % 11.6-14.6 [facility] Erythrocyte distribution wid th standard deviationOrdered By: Nima Rosario on 06-18-2023 Erythrocyte distribution width (RBC) [Entitic vol] 40.1 fL 35.1-43.9 [facility] Hematocrit Auto (Bld) [Volum e fraction]Ordered By: Nima Rosario on 06-18-2023 Hematocrit (Bld) [Volume fraction] 41.0 % 37-47 [facility] Immature granulocytes/100 WB C Auto (Bld)Ordered By: Nima Rosario on 06-18-2023 Immature granulocytes/100 WBC (Bld) 0.300 % 0.0-0.9 [facility] Comment on above: IG% - Immature Granu locytes (promyelocytes, myelocytes and metamyelocytes) > 1% indicates that a LEFT SHIFT is Present. Ketones Test strip Ql (U)Ord ered By: Nima Rosario on 06-18-2023 Ketones Ql (U) 150 mg/dl Negative [facility] Comment on above: CRITICAL VALUE VERIF IED. CALLED TO FEDERICO YOUNG RN [id number] Joaquin Escudero.RESULTS READ BACK BY SAME . CRITICAL VALUE *HPrevious reported result: 150 mg/dlEdited by: SAMMI on 06/18/23:2000 Laboratory - Chemistry and C hemistry - challengeOrdered By: Nima Rosario on 06-18-2023 CO2 [Moles/Vol] 25.0 mmol/L 21.0-32.0 [facility] Urea nitrogen/Creatinine [Mass ratio] 14.1 mg/mg 10-20 [facility] Laboratory - Hematology and Cell countsOrdered By: Nima Rosario on 06-18-2023 MCH (RBC) [Entitic mass] 28.8 pg 27.0-32.0 [facility] MCHC (RBC) [Mass/Vol] 33.7 g/dL 32-36 [facility] Nucleated RBC/100 WBC (Bld) [Ratio] 0 % 0-5 [facility] Platelet mean volume (Bld) [Entitic vol] 10.5 fL 6.2-12.0 [facility] Platelets (Bld) [#/Vol] 311 10*3/uL 150-450 [facility] Mucus LM Ql (Urine sed)Order ed By: Nima Rosario on 06-18-2023 Mucus Ql (Urine sed) 0 SEEN /hpf [facility] Nitrite Test strip Ql (U)Ord ered By: Nima Rosario on 06-18-2023 Nitrite Ql (U) Negative Negative [facility] No Panel InformationOrdered By: Nima Rosario on 06-18-2023 Urine RBC > 100 SEEN /hpf 0-5 [facility] Estimated Creatinine Clearance Calc 110.10 ml/min [facility] Estimated GFR (MDRD) Amer 97 mL/min >60 [facility] Comment on above: GFR Calc Estimated GFR (MDRD) Non-Af Amer 80 mL/min >60 [facility] Comment on above: Non- GFR Calc Protein Test strip Ql (U)Ord ered By: Nima Rosario on 06-18-2023 Protein Ql (U) 30 mg/dl Negative [facility] RBC Auto (Bld) [#/Vol]Ordere d By: Nima Rosario on 06-18-2023 RBC (Bld) [#/Vol] 4.79 10*6/uL 4.2-5.4 [facility] Serum or plasma calcium rohit urement (mass/volume)Ordered By: Nima Rosario on 06-18-2023 Calcium [Mass/Vol] 9.1 mg/dL 8.5-10.1 [facility] Serum or plasma choriogonado tropin detectionOrdered By: Nima Rosario on 06-18-2023 HCG ( test) Ql Negative [facility] Serum or plasma creatinine m easurement (mass/volume)Ordered By: Nima Rosario on 06-18-2023 Creatinine [Mass/Vol] 0.85 mg/dL 0.55-1.02 [facility] Comment on above: The validity of the calculated GFR & GFRAA in patients over 70 years has not been determined. Clinical correlation is essential. Serum or plasma urea nitroge n measurement (mass/volume)Ordered By: Nima Rosario on 06-18-2023 Urea nitrogen [Mass/Vol] 12 mg/dL 7-18 [facility] Squamous epithelial cells de tection in urine sediment by light microscopyOrdered By: Nima Rosario on 06-18-2023 Epithelial cells.squamous LM Ql (Urine sed) 0-5 SEEN /hpf 5-10 [facility] Thin prep Papanicolaou smear with manual screeningOrdered By: Nima Rosario on 06-18-2023 Thin prep Papanicolaou smear with manual screening 9 5-15 [facility] Urine blood detectionOrdered By: Nima Rosario on 06-18-2023 RBC Ql (U) 250 /ul Negative [facility] Urine clarityOrdered By: Janee Rosario on 06-18-2023 Clarity (U) Sl. Cloudy Clear [facility] Urine color determinationOrd ered By: Nima Rosario on 06-18-2023 Color (U) Yellow Yellow [facility] Urine glucose detectionOrder ed By: Nima Rosario on 06-18-2023 Glucose Ql (U) Normal mg/dl Normal [facility] Urine leukocyte esterase det ection by dipstickOrdered By: Nima Rosario on 06-18-2023 Leukocyte esterase Test strip Ql (U) 25 /ul Negative [facility] Urine pHOrdered By: Nima michel on 06-18-2023 pH (U) 6.5 [pH] 5.0 - 8.0 [facility] Urine sediment bacteria coun t by microscopy (number/high power field)Ordered By: Nima Rosario on 06-18-2023 Bacteria LM.HPF (Urine sed) [#/Area] 0 /[HPF] None Seen [facility] Urine specific gravity measu rementOrdered By: Nima Rosario on 06-18-2023 Specific gravity (U) [Rel density] 1.020 1.002-1.030 [facility] Urine urobilinogen measureme ntOrdered By: Nima Rosario on 06-18-2023 Urobilinogen Ql (U) 1 mg/dl Normal [facility] Qualitative QuantiFERON-TB g old in tube testOrdered By: Landen Truong on 05-30-2023 M. tuberculosis tuberculin stim IFN-g Ql (Bld) 0.01 IU/mL . [facility] Serum hepatitis B virus core antibody detectionOrdered By: Landen Truong on 05-30-2023 HBV core Ab Ql (S) Negative Negative [facility] Comment on above: Performed at: [address] [id number] Director: Wiley Carrillo PhD, Phone: [phone] Thin prep Papanicolaou smear with manual screeningOrdered By: Landen Truong on 05-30-2023 Thin prep Papanicolaou smear with manual screening Comment . [facility] Comment on above: QuantiFERON-TB Gold Plus is a qualitative indirect test forM tuberculosis infection (including disease) and isintended for use in conjunction with risk assessment,radiography, and other medical and diagnostic evaluations.The QuantiFERON-TB Gold Plus result is determined bysubtracting the Nil value from either TB antigen (Ag)value. The Mitogen tube serves as a control for the test. Thin prep Papanicolaou smear with manual screening 0.01 IU/mL . [facility] Thin prep Papanicolaou smear with manual screening 0 IU/mL . [facility] Thin prep Papanicolaou smear with manual screening > 10.00 IU/mL . [facility] Thin prep Papanicolaou smear with manual screening Negative Negative [facility] Comment on above: No response to M tub erculosis antigens detected.Infection with M tuberculosis is unlikely, but high riskindividuals should be considered for additional testing(ATS/IDSA/CDC Clinical Practice Guidelines, 2017). Thereference range is an Antigen minus Nil result of <0.35IU/mL.The specimen received for QuantiFERON testing was incubatedby the ordering institution. Specific procedures outlinedin our Directory of Services and in the package insert forthe QuantiFERON Gold (In Tube) test must be followed toenable for proper stimulation of cells for the productionof interferon gamma. Chemiluminescence immunoassaymethodology Absolute lymphocyte countOrd ered By: Juanita Logan on 01-16-2023 Lymphocytes Auto (Unsp spec) [#/Vol] 2.56 10*3/uL 0.83-4.51 [facility] Basophil percentageOrdered B y: Juanita Logan on 01-16-2023 Basophils/100 WBC (Bld) 0.7 % 0-1 [facility] Eosinophils/100 WBC (Bld) 1.5 % 0-5 [facility] Neutrophils (Bld) [#/Vol] 8.8 10*3/uL 2.0-7.7 [facility] Neutrophils/100 WBC (Bld) 71.5 % 47-70 [facility] WBC (Bld) [#/Vol] 12.3 10*3/uL 4.4-11.0 [facility] Blood erythrocytes count (nu mber/volume)Ordered By: Juanita Logan on 01-16-2023 RBC (Bld) [#/Vol] 4.63 10*6/uL 4.2-5.4 [facility] Blood hemoglobin measurement (mass/volume)Ordered By: Juanita Logan on 01-16-2023 Hemoglobin (Bld) [Mass/Vol] 13.0 g/dL 12.0-15.0 [facility] Blood lymphocytes/100 leukoc ytesOrdered By: Juanita Logan on 01-16-2023 Lymphocytes/100 WBC (Bld) 20.9 % 19-41 [facility] Blood monocytes/100 leukocyt esOrdered By: Juanita Logan on 01-16-2023 Monocytes/100 WBC (Bld) 4.9 % 0-10 [facility] Blood platelet mean volumeOr dered By: Juanita Logan on 01-16-2023 Platelet mean volume (Bld) [Entitic vol] 10.5 fL 6.2-12.0 [facility] Determination of erythrocyte mean corpuscular volume (MCV)Ordered By: Juanita Logan on 01-16-2023 MCV (RBC) [Entitic vol] 86.6 fL 81-99 [facility] Hematocrit Auto (Bld) [Volum e fraction]Ordered By: Juanita Logan on 01-16-2023 Hematocrit (Bld) [Volume fraction] 40.1 % 37-47 [facility] Laboratory - Chemistry and C hemistry - challengeOrdered By: Juanita Logan on 01-16-2023 Free T4 [Mass/Vol] 1.03 ng/dL 0.76-1.46 [facility] Laboratory - Hematology and Cell countsOrdered By: Juanita Logan on 01-16-2023 Erythrocyte distribution width (RBC) [Entitic vol] 40.7 fL 35.1-43.9 [facility] Erythrocyte distribution width (RBC) [Ratio] 13.2 % 11.6-14.6 [facility] Immature granulocytes/100 WBC (Bld) 0.500 % 0.0-0.9 [facility] Comment on above: IG% - Immature Granu locytes (promyelocytes, myelocytes and metamyelocytes) > 1% indicates that a LEFT SHIFT is Present. MCH (RBC) [Entitic mass] 28.1 pg 27.0-32.0 [facility] Nucleated RBC/100 WBC (Bld) [Ratio] 0 % 0-5 [facility] MCHC Auto (RBC) [Mass/Vol]Or dered By: Juanita Logan on 01-16-2023 MCHC (RBC) [Mass/Vol] 32.4 g/dL 32-36 [facility] No Panel InformationOrdered By: Juanita Logan on 01-16-2023 Free Triiodothyronine (T3) pg/dL 2.7 pg/mL 2.18-3.98 [facility] Thyroid Stimulating Hormone (TSH) 5.25 uIU/mL 0.358-3.74 [facility] Vitamin D 25-Hydroxy 30.9 ng/mL [facility] Comment on above: Vitamin D 25(OH) Sta tus Range Deficiency <20 ng/mL (50nmol/L) Insufficiency 20 - 30 ng/mL (50 - 75 nmol/L) Sufficiency 30 - 100 ng/mL (75 - 250 nmol/L) Toxicity >100 ng/mL (>250 nmol/L) Platelets bldOrdered By: Morgan Logan on 01-16-2023 Platelets (Bld) [#/Vol] 379 10*3/uL 150-450 [facility] Absolute lymphocyte countOrd ered By: Juanita Desmond on 11-30-2022 Lymphocytes Auto (Unsp spec) [#/Vol] 2.37 10*3/uL 0.83-4.51 [facility] Basophil percentageOrdered B y: Juanita Desmond on 11-30-2022 Basophils/100 WBC (Bld) 0.5 % 0-1 [facility] Chloride [Moles/Vol] 107 mmol/L 98-107 [facility] Cholesterol [Mass/Vol] 200 mg/dL <200 [facility] Comment on above: <200 mg/dL Desirable 200-240 mg/dL Borderline >240 mg/dL High Risk Eosinophils/100 WBC (Bld) 2.0 % 0-5 [facility] Glucose [Mass/Vol] 101 mg/dL 74-106 [facility] Comment on above: Fasting Glucose resu lt from 100 to 125 mg/dL suggests IMPAIRED HOMEOSTASIS per A.D.A. criteria. Neutrophils (Bld) [#/Vol] 7.8 10*3/uL 2.0-7.7 [facility] Neutrophils/100 WBC (Bld) 69.4 % 47-70 [facility] Potassium [Moles/Vol] 4.0 mmol/L 3.5-5.1 [facility] Sodium [Moles/Vol] 136 mmol/L 136-145 [facility] Triglyceride [Mass/Vol] 92 mg/dL <199 [facility] Comment on above: The drugs N-Acetylcy steine and Metamizole may falsely depress this assay.Serum Triglycerides Reference Interval Normal <150 mg/dL Borderline high 150 - 199 mg/dL High 200 - 499 mg/dL Very High > or = 500 mg/dL WBC (Bld) [#/Vol] 11.2 10*3/uL 4.4-11.0 [facility] Blood erythrocytes count (nu mber/volume)Ordered By: Juanita Logan on 11-30-2022 RBC (Bld) [#/Vol] 4.99 10*6/uL 4.2-5.4 [facility] Blood hemoglobin measurement (mass/volume)Ordered By: Juanita Logan on 11-30-2022 Hemoglobin (Bld) [Mass/Vol] 14.0 g/dL 12.0-15.0 [facility] Blood lymphocytes/100 leukoc ytesOrdered By: Juanita Logan on 11-30-2022 Lymphocytes/100 WBC (Bld) 21.1 % 19-41 [facility] Blood monocytes/100 leukocyt esOrdered By: Juanita Logan on 11-30-2022 Monocytes/100 WBC (Bld) 6.2 % 0-10 [facility] Blood platelet mean volumeOr dered By: Juanita Logan on 11-30-2022 Platelet mean volume (Bld) [Entitic vol] 10.8 fL 6.2-12.0 [facility] Determination of erythrocyte mean corpuscular volume (MCV)Ordered By: Juanita Logan on 11-30-2022 MCV (RBC) [Entitic vol] 87.4 fL 81-99 [facility] Hematocrit Auto (Bld) [Volum e fraction]Ordered By: Juanita Logan on 11-30-2022 Hematocrit (Bld) [Volume fraction] 43.6 % 37-47 [facility] Laboratory - Chemistry and C hemistry - challengeOrdered By: Juanita Logan on 11-30-2022 CO2 [Moles/Vol] 25.0 mmol/L 21.0-32.0 [facility] Free T4 [Mass/Vol] 1.04 ng/dL 0.76-1.46 [facility] Urea nitrogen/Creatinine [Mass ratio] 16.6 mg/mg 10-20 [facility] - Hematology and Cell countsOrdered By: Juanita Logan on 11-30-2022 Erythrocyte distribution width (RBC) [Entitic vol] 41.7 fL 35.1-43.9 [facility] Erythrocyte distribution width (RBC) [Ratio] 13.2 % 11.6-14.6 [facility] Immature granulocytes/100 WBC (Bld) 0.800 % 0.0-0.9 [facility] Comment on above: IG% - Immature Granu locytes (promyelocytes, myelocytes and metamyelocytes) > 1% indicates that a LEFT SHIFT is Present. MCH (RBC) [Entitic mass] 28.1 pg 27.0-32.0 [facility] Nucleated RBC/100 WBC (Bld) [Ratio] 0 % 0-5 [facility] MCHC Auto (RBC) [Mass/Vol]Or dered By: Juanita Logan on 11-30-2022 MCHC (RBC) [Mass/Vol] 32.1 g/dL 32-36 [facility] No Panel InformationOrdered By: Juanita Logan on 11-30-2022 Estimated GFR (MDRD) Amer 118 mL/min >60 [facility] Comment on above: GFR Calc Estimated GFR (MDRD) Non-Af Amer 97 mL/min >60 [facility] Comment on above: Non- GFR Calc Thyroid Stimulating Hormone (TSH) 6.47 uIU/mL 0.358-3.74 [facility] Vitamin D 25-Hydroxy 15.8 ng/mL [facility] Comment on above: Vitamin D 25(OH) Sta tus Range Deficiency <20 ng/mL (50nmol/L) Insufficiency 20 - 30 ng/mL (50 - 75 nmol/L) Sufficiency 30 - 100 ng/mL (75 - 250 nmol/L) Toxicity >100 ng/mL (>250 nmol/L) Platelets bldOrdered By: Morgan Logan on 11-30-2022 Platelets (Bld) [#/Vol] 349 10*3/uL 150-450 [facility] Serum or plasma calcium rohit urement (mass/volume)Ordered By: Juanita Logan on 11-30-2022 Calcium [Mass/Vol] 8.6 mg/dL 8.5-10.1 [facility] Serum or plasma cholesterol in HDL measurement (mass/volume)Ordered By: Juanita Logan on 11-30-2022 Cholesterol in HDL [Mass/Vol] 48 mg/dL >40 [facility] Comment on above: The drugs N-Acetylcy steine and Metamizole may falsely depress this assay. Reference Range HDL <40 mg/dL Low HDL Cholesterol HDL >or= 60 mg/dL High HDL Cholesterol Serum or plasma cholesterol in VLDL measurement (mass/volume)Ordered By: Juanita Logan on 11-30-2022 Cholesterol in VLDL [Mass/Vol] 18 mg/dL 5-40 [facility] Serum or plasma creatinine m easurement (mass/volume)Ordered By: Juanita Logan on 11-30-2022 Creatinine [Mass/Vol] 0.72 mg/dL 0.55-1.02 [facility] Comment on above: The validity of the calculated GFR & GFRAA in patients over 70 years has not been determined. Clinical correlation is essential. Serum or plasma low density lipoprotein (LDL) cholesterol measurement (mass/volume)Ordered By: Juanita Logan on 11-30-2022 Cholesterol in LDL [Mass/Vol] 134 mg/dL 0-130 [facility] Serum or plasma urea nitroge n measurement (mass/volume)Ordered By: Juanita Logan on 11-30-2022 Urea nitrogen [Mass/Vol] 12 mg/dL 7-18 [facility] Thin prep Papanicolaou smear with manual screeningOrdered By: Juanita Logan on 11-30-2022 Thin prep Papanicolaou smear with manual screening 4 5-15 [facility] Whole blood hemoglobin A1c/t otal hemoglobin ratio (mass fraction)Ordered By: Juanita Logan on 11-30-2022 HbA1c (Bld) [Mass fraction] 5.0 % 3.8-5.6 [facility] Comment on above: Normal < 5.7 % Predi abetic 5.7 - 6.4 % Diabetic >or= 6.5 % Please note range changes. Qualitative QuantiFERON-TB g old in tube teston 02-21-2022 M. tuberculosis tuberculin stim IFN-g Ql (Bld) 0.02 IU/mL . [facility] Work Phone: Serum hepatitis B virus core antibody detectionon 02-21-2022 HBV core Ab Ql (S) Negative Negative [facility] Work Phone: Comment on above: Performed at: [address] [id number] Director: Wiley Carrillo PhD, Phone: [phone] Thin prep Papanicolaou smear with manual screeningon 02-21-2022 Thin prep Papanicolaou smear with manual screening Comment . [facility] Work Phone: Comment on above: QuantiFERON-TB Gold Plus is a qualitative indirect test forM tuberculosis infection (including disease) and isintended for use in conjunction with risk assessment,radiography, and other medical and diagnostic evaluations.The QuantiFERON-TB Gold Plus result is determined bysubtracting the Nil value from either TB antigen (Ag)value. The Mitogen tube serves as a control for the test. Thin prep Papanicolaou smear with manual screening 0.01 IU/mL . [facility] Work Phone: Thin prep Papanicolaou smear with manual screening 0.02 IU/mL . [facility] Work Phone: Thin prep Papanicolaou smear with manual screening > 10.00 IU/mL . [facility] Work Phone: Thin prep Papanicolaou smear with manual screening Negative Negative [facility] Work Phone: Comment on above: No response to M tub erculosis antigens detected.Infection with M tuberculosis is unlikely, but high riskindividuals should be considered for additional testing(ATS/IDSA/CDC Clinical Practice Guidelines, 2017). Thereference range is an Antigen minus Nil result of <0.35IU/mL.The specimen received for QuantiFERON testing was incubatedby the ordering institution. Specific procedures outlinedin our Directory of Services and in the package insert forthe QuantiFERON Gold (In Tube) test must be followed toenable for proper stimulation of cells for the productionof interferon gamma. Chemiluminescence immunoassaymethodology Basophil percentageon 2021 Chloride [Moles/Vol] 105 mmol/L 98-[address] [facility] Work Phone: Cholesterol [Mass/Vol] 210 mg/dL <[address] [facility] Work Phone: Comment on above: <200 mg/dL Desirable 200-240 mg/dL Borderline >240 mg/dL High Risk Glucose [Mass/Vol] 111 mg/dL 74-106 [facility] Work Phone: Comment on above: Fasting Glucose resu lt from 100 to 125 mg/dL suggests IMPAIRED HOMEOSTASIS per A.D.A. criteria. Potassium [Moles/Vol] 3.9 mmol/L 3.5-5.1 [facility] Work Phone: Sodium [Moles/Vol] 137 mmol/L 136-145 [facility] Work Phone: Triglyceride [Mass/Vol] 115 mg/dL <199 [facility] Work Phone: Comment on above: The drugs N-Acetylcy steine and Metamizole may falsely depress this assay.Serum Triglycerides Reference Interval Normal <150 mg/dL Borderline high 150 - 199 mg/dL High 200 - 499 mg/dL Very High > or = 500 mg/dL Laboratory - Chemistry and C hemistry - challengeon 06-01-2021 CO2 [Moles/Vol] 26.0 mmol/L 21.0-32.0 [facility] Work Phone: Urea nitrogen/Creatinine [Mass ratio] 13.8 mg/mg 10-20 [facility] Work Phone: No Panel Informationon 06-01 Estimated GFR (MDRD) Amer 118 mL/min >60 [facility] Work Phone: Comment on above: GFR Calc Estimated GFR (MDRD) Non-Af Amer 98 mL/min >60 [facility] Work Phone: Comment on above: Non- GFR Calc Thyroid Stimulating Hormone (TSH) 3.26 uIU/mL 0.358-3.74 [facility] Work Phone: Serum or plasma calcium rohit urement (mass/volume)on 06-01-2021 Calcium [Mass/Vol] 8.7 mg/dL 8.5-10.1 [facility] Work Phone: Serum or plasma cholesterol in HDL measurement (mass/volume)on 06-01-2021 Cholesterol in HDL [Mass/Vol] 48 mg/dL >40 [facility] Work Phone: Comment on above: The drugs N-Acetylcy steine and Metamizole may falsely depress this assay. Reference Range HDL <40 mg/dL Low HDL Cholesterol HDL >or= 60 mg/dL High HDL Cholesterol Serum or plasma cholesterol in VLDL measurement (mass/volume)on 06-01-2021 Cholesterol in VLDL [Mass/Vol] 23 mg/dL 5-40 [facility] Work Phone: Serum or plasma cortisol kurt surement (mass/volume)on 06-01-2021 Cortisol [Mass/Vol] 16.00 ug/dL 3.44-22.45 [facility] Work Phone: Comment on above: Adult (AM) 5.27 - 22 .45 ug/dL Adult (PM) 3.44 - 16.76 ug/dLPlease note revised CORTISOL reference range effective 2019. Serum or plasma creatinine m easurement (mass/volume)on 06-01-2021 Creatinine [Mass/Vol] 0.73 mg/dL 0.55-1.02 [facility] Work Phone: Comment on above: The validity of the calculated GFR & GFRAA in patients over 70 years has not been determined. Clinical correlation is essential. Serum or plasma low density lipoprotein (LDL) cholesterol measurement (mass/volume)on 06-01-2021 Cholesterol in LDL [Mass/Vol] 139 mg/dL 0-130 [facility] Work Phone: Serum or plasma urea nitroge n measurement (mass/volume)on 06-01-2021 Urea nitrogen [Mass/Vol] 10 mg/dL 7-18 [facility] Work Phone: Thin prep Papanicolaou smear with manual screeningon 06-01-2021 Thin prep Papanicolaou smear with manual screening 6 5-15 [facility] Work Phone: Vital Signs Date Time Vital Sign Value Performing Clinician Facility 09-07-2024 09:51-0400 Body mass index (BMI) [Ratio] 31.17 kg/m2 Brandon Cummings APRN.CNP Work Phone: [facility] 09-07-2024 09:51-0400 Body temperature 98.4 [degF] Brandon Cummings APRN.CNP Work Phone: [facility] 09-07-2024 09:51-0400 Body weight 87.6 kg Brandon Moomaw [employer].MULT[employer]IA EDITOR Work Phone: [facility] 09-07-2024 09:51-0400 Diastolic blood pressure 82 mm[Hg] Brandon Moomaw [employer].MULT[employer]IA EDITOR Work Phone: [facility] 09-07-2024 09:51-0400 Heart rate 79 /min Brandon Moomaw [employer].MULTIMEDIA EDITOR Work Phone: [facility] 09-07-2024 09:51-0400 Respiratory rate 18 /min Brandon Moomaw [employer].MULTIMEDIA EDITOR Work Phone: [facility] 09-07-2024 09:51-0400 SaO2% (BldA) [Mass fraction] 100 % Brandon Moomaw [employer].MULTIMEDIA EDITOR Work Phone: [facility] 09-07-2024 09:51-0400 Systolic blood pressure 132 mm[Hg] Brandon Moomaw [employer].MULTIMEDIA EDITOR Work Phone: [facility] 08-02-2024 09:48-0400 Body height 167.6 cm Yamilex Callow [employer].MULT[employer]EDIA EDITOR Work Phone: [facility] 08-02-2024 09:48-0400 Body mass index (BMI) [Ratio] 30.32 kg/m2 Yamilex Callow [employer].MULTIMEDIA EDITOR Work Phone: [facility] 08-02-2024 09:48-0400 Body temperature 99.3 [degF] Yamilex Callow [employer].MULTIMEDIA EDITOR Work Phone: [facility] 08-02-2024 09:48-0400 Body weight 85.2 kg Yamilex Callow [employer].MULTIMEDIA EDITOR Work Phone: [facility] 08-02-2024 09:48-0400 Diastolic blood pressure 82 mm[Hg] Yamilex Callow [employer].MULTIMEDIA EDITOR Work Phone: [facility] 08-02-2024 09:48-0400 Heart rate 90 /min Yamilex Callow [employer].MULTIMEDIA EDITOR Work Phone: [facility] 08-02-2024 09:48-0400 Respiratory rate 12 /min Yamilex Sheriff [employer].MULTIMEDIA EDITOR Work Phone: [facility] 08-02-2024 09:48-0400 SaO2% (BldA) [Mass fraction] 98 % Yamilex Sheriff [employer].MULTIMEDIA EDITOR Work Phone: [facility] 08-02-2024 09:48-0400 Systolic blood pressure 122 mm[Hg] Yamilex Sheriff [employer].MULTIMEDIA EDITOR Work Phone: [facility] 07-14-2023 14:06-0400 Body temperature 98.71 [degF] Estrada Evans MD Work Phone: [facility] 07-14-2023 14:06-0400 Body weight 99.7 kg Estrada Evans MD Work Phone: [facility] 07-14-2023 14:06-0400 Diastolic blood pressure 72 mm[Hg] Estrada Evans MD Work Phone: [facility] 07-14-2023 14:06-0400 Heart rate 94 /min Estrada Evans MD Work Phone: [facility] 07-14-2023 14:06-0400 Respiratory rate 16 /min Estrada Evans MD Work Phone: [facility] 07-14-2023 14:06-0400 SaO2% (BldA) [Mass fraction] 98 % Estrada Evans MD Work Phone: [facility] 07-14-2023 14:06-0400 Systolic blood pressure 134 mm[Hg] Estrada Evans MD Work Phone: [facility] 06-22-2023 13:31-0400 Body temperature 97 [degF] Krislyn Aberegg PA Work Phone: [facility] 06-22-2023 13:31-0400 Body weight 102.7 kg Krislyn Aberegg PA Work Phone: [facility] 06-22-2023 13:31-0400 Diastolic blood pressure 78 mm[Hg] Krislyn Aberegg PA Work Phone: [facility] 06-22-2023 13:31-0400 Heart rate 88 /min Krislyn Aberegg PA Work Phone: [facility] 06-22-2023 13:31-0400 Respiratory rate 16 /min Krislyn Aberegg PA Work Phone: [facility] 06-22-2023 13:31-0400 SaO2% (BldA) [Mass fraction] 98 % Krislyn Aberegg PA Work Phone: [facility] 06-22-2023 13:31-0400 Systolic blood pressure 134 mm[Hg] Krislyn Aberegg PA Work Phone: [facility] 06-20-2023 23:55-0400 Body temperature 98.7 [degF] DO Juanita Desmond Work Phone: [facility] 06-20-2023 23:55-0400 Diastolic blood pressure 84 mm[Hg] DO Juanita Desmond Work Phone: [facility] 06-20-2023 23:55-0400 Heart rate 69 /min DO Juanita Desmond Work Phone: [facility] 06-20-2023 23:55-0400 Respiratory rate 16 /min DO Juanita Desmond Work Phone: [facility] 06-20-2023 23:55-0400 SaO2% (BldA) [Mass fraction] 100 % DO Juanita Desmond Work Phone: [facility] 06-20-2023 23:55-0400 Systolic blood pressure 133 mm[Hg] DO Juanita Desmond Work Phone: [facility] 06-20-2023 19:46-0400 Body height 167.64 cm DO Juanita Desmond Work Phone: [facility] 06-20-2023 19:46-0400 Body mass index (BMI) [Ratio] 36.4 kg/m2 DO Juanita Desmond Work Phone: [facility] 06-20-2023 19:46-0400 Body weight 102.51 kg DO Juanita Desmond Work Phone: [facility] 06-18-2023 21:42-0400 Body temperature 97.2 [degF] DO Juanita Desmond Work Phone: [facility] 06-18-2023 21:42-0400 Diastolic blood pressure 63 mm[Hg] DO Juanita Desmond Work Phone: [facility] 06-18-2023 21:42-0400 Heart rate 71 /min DO Juanita Desmond Work Phone: [facility] 06-18-2023 21:42-0400 Respiratory rate 16 /min DO Juanitasherrill Damiconger Work Phone: [facility] 06-18-2023 21:42-0400 SaO2% (BldA) [Mass fraction] 99 % DO Juanitasherrill Damiconger Work Phone: [facility] 06-18-2023 21:42-0400 Systolic blood pressure 124 mm[Hg] DO Juanitasherrill Damcionger Work Phone: [facility] 06-18-2023 17:06-0400 Body height 167.64 cm DO Juanita Desmond Work Phone: [facility] 06-18-2023 17:06-0400 Body mass index (BMI) [Ratio] 35.5 kg/m2 DO Juanita Desmond Work Phone: [facility] 06-18-2023 17:06-0400 Body weight 99.79 kg DO Juanita Desmond Work Phone: [facility] 05-15-2023 14:22-0500 Body height 167.64 cm DO Juanita Desmond Work Phone: [facility] 05-15-2023 14:22-0500 Body mass index (BMI) [Ratio] 37.1 kg/m2 DO Juanita Desmond Work Phone: [facility] 05-15-2023 14:22-0500 Body weight 104.32 kg DO Juanita Damiconger Work Phone: [facility] 05-15-2023 14:22-0500 Diastolic blood pressure 96 mm[Hg] DO Juanita Damiconger Work Phone: [facility] 05-15-2023 14:22-0500 Respiratory rate 18 /min DO Juanita Damiconger Work Phone: [facility] 05-15-2023 14:22-0500 Systolic blood pressure 145 mm[Hg] DO Juanita Damiconger Work Phone: [facility] 05-07-2023 09:33-0500 Body temperature 99 [degF] Latanya Athy PA-C Work Phone: [facility] 05-07-2023 09:33-0500 Body weight 106.41 kg Latanya Athy PA-C Work Phone: [facility] 05-07-2023 09:33-0500 Diastolic blood pressure 90 mm[Hg] Latanya Athy PA-C Work Phone: [facility] 05-07-2023 09:33-0500 Heart rate 85 /min Latanya Athy PA-C Work Phone: [facility] 05-07-2023 09:33-0500 Respiratory rate 21 /min Latanya Athy PA-C Work Phone: [facility] 05-07-2023 09:33-0500 SaO2% (BldA) [Mass fraction] 98 % Latanya Athy PA-C Work Phone: [facility] 05-07-2023 09:33-0500 Systolic blood pressure 126 mm[Hg] Latanya Athy PA-C Work Phone: [facility] 12-14-2021 17:55-0400 Body height 167.64 cm [facility] Work Phone: 12-14-2021 17:55-0400 Body weight 114.48 kg [facility] Work Phone: 09-11-2021 00:32-0400 Diastolic blood pressure 67 mm[Hg] [facility] Work Phone: 09-11-2021 00:32-0400 Heart rate 79 /min [facility] Work Phone: 09-11-2021 00:32-0400 Respiratory rate 18 /min [facility] Work Phone: 09-11-2021 00:32-0400 SaO2% (BldA) [Mass fraction] 95 % [facility] Work Phone: 09-11-2021 00:32-0400 Systolic blood pressure 138 mm[Hg] [facility] Work Phone: 09-10-2021 23:07-0400 Body height 167.64 cm [facility] Work Phone: 09-10-2021 23:07-0400 Body mass index (BMI) [Ratio] 40.8 kg/m2 [facility] Work Phone: 09-10-2021 23:07-0400 Body temperature 96.2 [degF] [facility] Work Phone: 09-10-2021 23:07-0400 Body weight 114.8 kg [facility] Work Phone: 07-13-2021 19:37-0400 Body height 170.18 cm [facility] Work Phone: 07-13-2021 19:37-0400 Body weight 113.94 kg [facility] Work Phone: Encounters Encounter Date Encounter Type Care Provider Facility Start: 09-07-2024 End: 09-07-2024 Patient encounter procedure Brandon Cummings SAULO.MULTIMEDIA EDITOR Work Phone: [facility] Comment on above: Urinary frequency (P rimary Dx) Start: 08-29-2024 ambulatory Chalon Carter Facility:[facility] Start: 08-02-2024 End: 08-02-2024 ambulatory YAMILEX SHERIFF Facility:[facility] Start: 08-02-2024 End: 08-02-2024 Patient encounter procedure Yamilex Sheriff CARPENTER HELPER MAINTENANCE.MULTIMEDIA EDITOR Work Phone: [facility] Comment on above: Sore throat (Primary Dx) Start: 07-15-2024 End: 07-15-2024 ambulatory [facility] Facility:[facility] Start: 02-26-2024 End: 02-26-2024 ambulatory [facility] Facility:[facility] Start: 11-21-2023 End: 11-21-2023 ambulatory Nadeem Sweet Facility:[facility] Start: 09-05-2023 End: 09-05-2023 ambulatory Pat Pedraza Facility:[facility] Start: 07-16-2023 Telephone encounter Jesus dawn CARPENTER HELPER MAINTENANCE.MULTIMEDIA EDITOR Work Phone: [facility] Comment on above: Results Start: 07-14-2023 End: 07-14-2023 Patient encounter procedure Estrada Evans MD Work Phone: [facility] Comment on above: Urinary frequency (P rimary Dx); Renal calculus Start: 07-11-2023 End: 07-11-2023 ambulatory DO Juanita Logan Work Phone: [facility] Work Phone: Start: 07-11-2023 End: 07-11-2023 Patient encounter procedure DO Juanita Logan Work Phone: [facility] [place] Work Phone: Start: 06-22-2023 End: 06-22-2023 Patient encounter procedure Yasmin FITZGERALD Work Phone: [facility] Comment on above: Sore throat (Primary Dx); Eustachian tube dysfunction, right Start: 06-20-2023 End: 06-20-2023 Emergency department patient visit DO Juanita Logan Work Phone: [facility] Work Phone: Start: 06-18-2023 End: 06-18-2023 Emergency department patient visit DO Juanita Logan Work Phone: [facility] Work Phone: Start: 05-30-2023 End: 05-30-2023 ambulatory DO Juanita Logan Work Phone: [facility] Work Phone: Start: 05-30-2023 End: 05-30-2023 Patient encounter procedure DO Juanita Logan Work Phone: [facility] [place] Work Phone: Start: 05-16-2023 End: 05-16-2023 ambulatory DO Juanita Logan Work Phone: [facility] Work Phone: Start: 05-16-2023 End: 05-16-2023 Patient encounter procedure DO Juanita Logan Work Phone: [facility] Work Phone: Start: 05-15-2023 End: 05-15-2023 Patient encounter procedure DO Juanita Logan Work Phone: [facility] Work Phone: Start: 05-09-2023 End: 05-09-2023 Patient encounter procedure DO Juanita Logan Work Phone: [facility] Work Phone: Start: 05-07-2023 End: 05-07-2023 Patient encounter procedure Latanya Kirby PA-C Work Phone: [facility] Comment on above: Viral URI (Primary D x) Start: 01-16-2023 End: 01-16-2023 ambulatory [facility] Work Phone: Start: 01-16-2023 End: 01-16-2023 Patient encounter procedure [facility] Work Phone: Start: 11-30-2022 End: 11-30-2022 ambulatory [facility] Work Phone: Start: 11-30-2022 End: 11-30-2022 Patient encounter procedure [facility] Work Phone: Start: 02-21-2022 End: 02-21-2022 ambulatory [facility] Work Phone: Start: 02-21-2022 End: 02-21-2022 Patient encounter procedure [facility] Start: 12-14-2021 End: 12-16-2021 [facility] Start: 09-10-2021 End: 09-11-2021 Emergency department patient visit [facility] Start: 07-13-2021 End: 07-16-2021 [facility] Start: 06-01-2021 End: 06-01-2021 Patient encounter procedure [facility] Family Procedures Date Procedure Procedure Detail Performing Clinician Start: 09-07-2024 Urnls dip stick/tabl et rgnt auto w/o microscopy Felisa Jamil APRN.CNP Work Phone: Start: 08-02-2024 STREP A MOLECULAR (POC) Yamilex Sheriff APRN.CNP Work Phone: Start: 07-14-2023 Urnls dip stick/tabl et rgnt auto w/o microscopy Felisa Jamil APRN.MULTIMEDIA EDITOR Work Phone: Start: 06-22-2023 STREP A MOLECULAR (POC) [facility] Provider Start: 06-20-2023 Plain X-ray abdomen DO Juanita Logan Work Phone: Start: 06-18-2023 CT of abdomen and pe lvis without contrast DO Juanita Logan Work Phone: Start: 05-09-2023 Bilateral mammography D O Juanita Logan Work Phone: Start: 05-09-2023 Ultrasonography of breast DO Juanita Logan Work Phone: Start: 09-10-2021 X-ray of both feet Plan of Treatment Date Care Activity Detail Author Start: 11-17-2024 Influenza vaccination Influenz a Vaccine (Season Ended) [facility] Start: 11-18-2023 Covid-19 Vaccine ( season) Covid-19 Vaccine () [facility] Start: 11-18-2023 Influenza vaccination Influenz a Vaccine (Season Ended) [facility] Start: 06-20-2023 [facility] Start: 06-18-2023 [facility] Start: 03-19-2023 Behavioral Health Screening Behavioral Health Screening [facility] Start: 03-19-2023 Depression Assessment Depression Ass essment [facility] Start: 11-17-2022 Covid-19 Vaccine ( season) Covid-19 Vaccine () [facility] Start: 11-17-2022 Influenza vaccination Influenza Vacc ine (#1) [facility] Start: 02-03-2018 Screening for malign ant neoplasm of cervix HPV Testing [facility] Start: 02-03-2009 Screening for malign ant neoplasm of cervix [facility] Start: 02-03-2007 Hepatitis B Vaccine (1 of 3 - 19+ 3-dose series) Hepatitis B Vaccine (1 of 3 - 19+ 3-dose series) [facility] Start: 02-03-2007 Urine microalbumin profile DTaP,Tdap,Td Vaccine (1 - Tdap) [facility] Start: 02-03-2006 Anxiety Screening Anxiety Screening [facility] Start: 02-03-2006 Depression Screening Depression Scre ening [facility] Start: 02-03-2006 Hepatitis C screening Hepatitis C Sc reening [facility] Start: 02-03-2006 HIV screening HIV Screening [facility] Start: 1990 Hepatitis B Vaccine (1 of 3 - 3-dose series) Hepatitis B Vaccine (1 of 3 - 3-dose series) [facility] Bacteria identified in Urine by Culture URINE CULTURE Microbiology Routine Urinary frequency 07/14/2023 2:31 PM EDT [facility] Work Phone: Bacteria identified in Urine by Culture BACTERIAL CULTURE, URINE Microbiology Routine Urinary frequency Ordered: 09/07/2024 [facility] Work Phone: Comment on above: Ordered: 09/07/2024 COVID & INFLUENZA A/ B & RSV NAAT, ROUTINE COVID & INFLUENZA A/B & RSV NAAT, ROUTINE Microbiology Routine Viral URI 05/07/2023 9:43 AM EST [facility] Work Phone: Patient Education [facility] Work Phone: Patient referral [facility] Work Phone: Thyroglobulin antibo dy measurement [facility] Thyroid stimulating immunoglobulins actual/normal in Serum [facility] Thyroperoxidase Ab [Units/volume] in Serum or Plasma [facility] Payers Date Payer Category Payer Self-pay [id number] 2016 [employer] Blue [facility] BLUE CARD PPO OOS [id number] 2016 Unknown [employer] BLUE CARD PPO OOS [id number] 2016-Present [phone] [address] [place] [address] [facility] [id number] 2016 Unknown [id number] 2015 Unknown [id number] Unknown [id number] Unknown [id number] Unknown [id number] Unknown [id number] Unknown [id number] Social History Date Type Detail Facility Start: 09-18-2019 End: 06-20-2023 Tobacco smoking status [facility] Unknown if ever smoked [facility] Start: 1990 Sex Assigned At Female [facility] Start: 05-07-2023 End: 08-02-2024 Tobacco smoking status DEIS Ex-smoker [facility] History of tobacco use Current smoker [facility] History of tobacco use Cigarette Smoker [facility] Start: 05-07-2023 End: 08-02-2024 Cigarettes smoked current (pack per day) - Reported 0.5 [facility] History of tobacco use Passive smoker [facility] Start: 05-07-2023 End: 08-02-2024 Tobacco use and exposure Smokeless tobacco non-user [facility] Start: 05-07-2023 End: 09-07-2024 Alcohol intake Current non-drinker of alcohol (finding) [facility] Start: 05-07-2023 End: 08-02-2024 Tobacco use panel [facility] Start: 1990 Sex Assigned At Not on file C [facility] Clinical Notes 05-07-2023 to 09-07-2024 Brandon Cummings APRN.MULTIMEDIA EDITOR - 09/07/2024 10:00 AM Yamilex Rodriguez APRN.MULTIMEDIA EDITOR - 08/02/2024 10:04 AM EDTTelephone Encounter - Molly Gonzalez MA - 07/16/2023 8:31 AM EDTPatient Instructions Note Date & Type Note Facility 09-07-2024 History of Presen t illness Narrative This note was created using [employer]. Subjective Aston Guevara is a 34 year old female. HPI Patient presents today complaining of 2-3 days of urinary frequency and fatigue. She also notes cloudy urine. She does have a long history of kidney stones but denies any history of frequent UTIs. Denies any chance of . Denies any nausea vomiting or fever Review of Systems As above Objective BP 132/82 Pulse 79 Temp 36.9 C (98.4 F) (Tympanic) Resp 18 Wt 87.6 kg (193 lb 2 oz) LMP 05/20/2023 (Approximate) SpO2 100% BMI 31.17 kg/m Physical Exam Vitals and nursing note reviewed. Constitutional: General: She is not in acute distress. Appearance: Normal appearance. She is not ill-appearing. HENT: Head: Normocephalic. Mouth/Throat: Mouth: Mucous membranes are moist. Cardiovascular: Rate and Rhythm: Normal rate and regular rhythm. Pulmonary: Effort: Pulmonary effort is normal. Breath sounds: Normal breath sounds. Abdominal: Palpations: Abdomen is soft. Tenderness: There is no abdominal tenderness. Musculoskeletal: General: Normal range of motion. Cervical back: Normal range of motion. Skin: General: Skin is warm and dry. Neurological: General: No focal deficit present. Mental Status: She is alert. Psychiatric: Mood and Affect: Mood normal. Behavior: Behavior normal. Assessment and Plan ASSESSMENT/PLAN: 1. Urinary frequency - ICD9: 788.41, ICD10: R35.0 - Urine today showed large amount of blood but otherwise was negative for nitrates and leukocytes. Urine sent for culture. Discussed with the patient initiating antibiotics versus waiting culture results and patient prefers to initiate antibiotic treatment. Patient was instructed that if symptoms are not improving she does need to follow-up closely with PCP. Also discussed follow-up for reevaluation of the large amount of hematuria. - UA DIP, URINE (POC) - BACTERIAL CULTURE, URINE - NITROFURANTOIN MONOHYDRATE & MACROCRYSTAL 100 MG ORAL CAP Brandon Cummings APRN.HEATH documented in this encounter [facility] 08-02-2024 Note HNO ID: [id number] Author: YAMILEX SHERIFF APRN.[facility] Service: ? Author Type: Nurse Practitioner Type: Progress Notes Filed: 08/02/2024 10:34 Note Text: Subjective HPI Aston presents today with one day hx of sorethroat and swollen glands on the right side, the patient states she feels well. 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 PAST MEDICAL HISTORY Diagnosis Date Hypothyroidism Psoriasis Renal calculi PAST SURGICAL HISTORY Procedure Laterality Date NONE ALLERGIES Patient has no known allergies. MEDICATIONS semaglutide (OZEMPIC SUBCUTANEOUS) Inject subcutaneously. FAMILY HISTORY Problem Relation Age of Onset Breast Cancer Maternal Aunt Cancer Maternal Aunt BRAIN Cancer Paternal Uncle BONE MARROW Heart Maternal Grandfather Alcohol/Drug Father Allergies Mother Diabetes Maternal Grandmother Social History Tobacco Use Smoking status: Former Current packs/day: 0.50 Average packs/day: 0.5 packs/day for 1 year (0.5 ttl pk-yrs) Types: Cigarettes Passive exposure: Past Smokeless tobacco: Never Substance Use Topics Alcohol use: No Drug use: No Review of Systems Constitutional: Positive for malaise/fatigue. HENT: Positive for sore throat. Eyes: Negative. Respiratory: Negative. Cardiovascular: Negative. Gastrointestinal: Negative. Genitourinary: Negative. Musculoskeletal: Negative. Neurological: Negative. Endo/Heme/Allergies: Negative. Psychiatric/Behavioral: Negative. All other systems reviewed and are negative. Objective Physical Exam Vitals and nursing note reviewed. Constitutional: Appearance: Normal appearance. HENT: Head: Normocephalic and atraumatic. Right Ear: Tympanic membrane, ear canal and external ear normal. Left Ear: Tympanic membrane, ear canal and external ear normal. Nose: Nose normal. Mouth/Throat: Mouth: Mucous membranes are moist. Pharynx: Oropharyngeal exudate present. No posterior oropharyngeal erythema. Eyes: Extraocular Movements: Extraocular movements intact. Pupils: Pupils are equal, round, and reactive to light. Cardiovascular: Rate and Rhythm: Normal rate and regular rhythm. Pulses: Normal pulses. Heart sounds: Normal heart sounds. Pulmonary: Effort: Pulmonary effort is normal. Breath sounds: Normal breath sounds. Abdominal: General: Abdomen is flat. Bowel sounds are normal. Musculoskeletal: General: Normal range of motion. Cervical back: Normal range of motion and neck supple. Lymphadenopathy: Cervical: Cervical adenopathy present. Skin: General: Skin is warm and dry. Capillary Refill: Capillary refill takes less than 2 seconds. Neurological: General: No focal deficit present. Mental Status: She is alert and oriented to person, place, and time. Psychiatric: Mood and Affect: Mood normal. Behavior: Behavior normal. ASSESSMENT/PLAN: 1. Sore throat - ICD9: 462, ICD10: J02.9 - suspect viral - Rapid Strep negative in the office today - Contagious dz precautions discussed- including considered contagious until on antibiotics for 24 hours - The patient should follow up in 3-5 days if symptoms persist or worsen - Call back if drooling, increased temperature, symptoms of dehydration and/or still sick in one week - STREP A MOLECULAR (POC) - consider mono and labs if not improved in 5-7 days Rest Motrin as needed Yamilex Sheriff APRN.[facility] 08-02-2024 History of Presen t illness Narrative Subjective HPI Aston presents today with one day hx of sorethroat and swollen glands on the right side, the patient states she feels well. 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 PAST MEDICAL HISTORY Diagnosis Date Hypothyroidism Psoriasis Renal calculi PAST SURGICAL HISTORY Procedure Laterality Date NONE ALLERGIES Patient has no known allergies. MEDICATIONS semaglutide (OZEMPIC SUBCUTANEOUS) Inject subcutaneously. FAMILY HISTORY Problem Relation Age of Onset Breast Cancer Maternal Aunt Cancer Maternal Aunt BRAIN Cancer Paternal Uncle BONE MARROW Heart Maternal Grandfather Alcohol/Drug Father Allergies Mother Diabetes Maternal Grandmother Social History Tobacco Use Smoking status: Former Current packs/day: 0.50 Average packs/day: 0.5 packs/day for 1 year (0.5 ttl pk-yrs) Types: Cigarettes Passive exposure: Past Smokeless tobacco: Never Substance Use Topics Alcohol use: No Drug use: No Review of Systems Constitutional: Positive for malaise/fatigue. HENT: Positive for sore throat. Eyes: Negative. Respiratory: Negative. Cardiovascular: Negative. Gastrointestinal: Negative. Genitourinary: Negative. Musculoskeletal: Negative. Neurological: Negative. Endo/Heme/Allergies: Negative. Psychiatric/Behavioral: Negative. All other systems reviewed and are negative. Objective Physical Exam Vitals and nursing note reviewed. Constitutional: Appearance: Normal appearance. HENT: Head: Normocephalic and atraumatic. Right Ear: Tympanic membrane, ear canal and external ear normal. Left Ear: Tympanic membrane, ear canal and external ear normal. Nose: Nose normal. Mouth/Throat: Mouth: Mucous membranes are moist. Pharynx: Oropharyngeal exudate present. No posterior oropharyngeal erythema. Eyes: Extraocular Movements: Extraocular movements intact. Pupils: Pupils are equal, round, and reactive to light. Cardiovascular: Rate and Rhythm: Normal rate and regular rhythm. Pulses: Normal pulses. Heart sounds: Normal heart sounds. Pulmonary: Effort: Pulmonary effort is normal. Breath sounds: Normal breath sounds. Abdominal: General: Abdomen is flat. Bowel sounds are normal. Musculoskeletal: General: Normal range of motion. Cervical back: Normal range of motion and neck supple. Lymphadenopathy: Cervical: Cervical adenopathy present. Skin: General: Skin is warm and dry. Capillary Refill: Capillary refill takes less than 2 seconds. Neurological: General: No focal deficit present. Mental Status: She is alert and oriented to person, place, and time. Psychiatric: Mood and Affect: Mood normal. Behavior: Behavior normal. ASSESSMENT/PLAN: 1. Sore throat - ICD9: 462, ICD10: J02.9 - suspect viral - Rapid Strep negative in the office today - Contagious dz precautions discussed- including considered contagious until on antibiotics for 24 hours - The patient should follow up in 3-5 days if symptoms persist or worsen - Call back if drooling, increased temperature, symptoms of dehydration and/or still sick in one week - STREP A MOLECULAR (POC) - consider mono and labs if not improved in 5-7 days Rest Motrin as needed Yamilex Sheriff APRN.MULTIMEDIA EDITOR documented in this encounter [facility] 07-16-2023 Telephone encount er Note Patient given results and verbalized understanding of instructions given. Molly Gonzalez MA [facility] 07-16-2023 Miscellaneous Notes Formattin g of this note might be different from the original. Patient given results and verbalized understanding of instructions given. Molly Gonzalez MA No bacterial infection noted on urine culture. Follow-up with PCP for reevaluation. Jesus Reilly APRN.CNP documented in this encounter [facility] 07-16-2023 Telephone encount er Note No bacterial infection noted on urine culture. Follow-up with PCP for reevaluation. Jesus Reilly APRN.CNP [facility] Work Phone: 07-14-2023 History of Presen t illness Narrative Patient presents with: Urinary Problem HPI: Symptoms for a few days. She was in the ER with flank pain related to a kidney stone and treated with pain medicine Dysuria: Yes Frequency: Yes, with small amount voided Hematuria: Yes Discharge: no. Has a little irritation. Nausea: No Fever or chills: No Back pain: resolved flank pain Abdominal pain: crampy bladder pain Prior UTI: No Personal history of kidney stones: Yes PAST MEDICAL HISTORY Diagnosis Date Hypothyroidism Psoriasis Renal calculi MEDICATIONS: Current Outpatient Medications Medication Sig semaglutide (OZEMPIC SUBCUTANEOUS) Inject subcutaneously. No current facility-administered medications for this visit. ALLERGIES: ALLERGIES No Known Allergies VITALS: BP 134/72 Pulse 94 Temp 37.1 C (98.7 F) Resp 16 Wt 99.7 kg (219 lb 12.8 oz) LMP 05/20/2023 (Approximate) SpO2 98% PHYSICAL EXAM: GEN: NAD HEENT: EOMI, conjunctiva clear, HEART: regular rate and rhythm, no murmurs LUNGS: clear to auscultation, no wheezes or crackles, no increased WOB ABDOMEN: Soft, nondistended, no masses, no suprapubic tenderness BACK: No CVA tenderness ASSESSMENT/PLAN: 1. Urinary frequency - ICD9: 788.41, ICD10: R35.0 - UA DIP, URINE (POC) - Large blood, +protein. No LE or nitrite. Discussed increased fluid and screening urine for stone. Will send - URINE CULTURE Keep follow up with urology next week. Estrada Evans MD documented in this encounter [facility] 06-22-2023 History of Presen t illness Narrative This note was created using [employer]. Subjective Aston Guevara is a 33 year old female. HPI 33-year-old female presents for sore throat and right ear pain. Patient states she has had right ear pain for about 4 days since Sunday. She has had a sore throat for about 2 to 3 days. Patient states that she is passing a kidney stone, so has been vomiting earlier this week. She states that she thought the sore throat was from vomiting. However, she then noticed that she had some white patches in the back of her throat, so was concerned it may be an infection. She states that she has been having right ear pain since Sunday. She denies any recent swimming. No drainage from the ear. No cough, congestion, fevers. She has not vomited today at all. She is on hydrocodone for her kidney stone pain, but has not been taking that frequently. No sick contacts that she is aware of. no other complaint. PAST MEDICAL HISTORY Diagnosis Date NEGATIVE MEDICAL HISTORY PAST SURGICAL HISTORY Procedure Laterality Date NONE ALLERGIES Patient has no known allergies. MEDICATIONS semaglutide (OZEMPIC SUBCUTANEOUS) Inject subcutaneously. predniSONE (DELTASONE) 20 mg tablet Take 2 tablets by mouth once daily for 4 days. Take daily with food. FAMILY HISTORY Problem Relation Age of Onset [...] Topics Alcohol use: No Drug use: No Review of Systems Constitutional: Negative for chills and fever. HENT: Positive for ear pain and sore throat. Negative for congestion. Respiratory: Negative for cough and shortness of breath. Cardiovascular: Negative for chest pain. Gastrointestinal: Negative for diarrhea and vomiting. Objective BP 134/78 Pulse 88 Temp 36.1 C (97 F) Resp 16 Wt 102.7 kg (226 lb 6.6 oz) LMP 05/20/2023 (Approximate) SpO2 98% Physical Exam Vitals and nursing note reviewed. Constitutional: General: She is not in acute distress. Appearance: Normal appearance. She is not toxic-appearing. HENT: Right Ear: Ear canal normal. A middle ear effusion is present. Left Ear: Tympanic membrane and ear canal normal. Ears: Comments: Clear fluid noted behind right TM. No signs of infection. Nose: Nose normal. Mouth/Throat: Mouth: Mucous membranes are moist. Pharynx: Uvula midline. Posterior oropharyngeal erythema present. No oropharyngeal exudate. Tonsils: Tonsillar exudate present. No tonsillar abscesses. 2+ on the right. 2+ on the left. Eyes: Conjunctiva/sclera: Conjunctivae normal. Cardiovascular: Rate and Rhythm: Normal rate and regular rhythm. Pulmonary: Effort: Pulmonary effort is normal. Breath sounds: Normal breath sounds. Neurological: Mental Status: She is alert. Assessment and Plan ASSESSMENT/PLAN: 1. Sore throat - ICD9: 462, ICD10: J02.9 (primary diagnosis) - suspect viral - Group A strep molecular testing negative - Discussed supportive care treatment with fluids, rest and analgesia. - The patient may also use warm salt water gargles, throat lozenges and/or OTC throat spray as needed. -Discussed mono testing, although patient is only had symptoms for 2 days. Discussed testing is more accurate after symptoms x 1 week. Offered to order test and patient to come back next week for lab testing. Discussed mono is viral and would not change treatment plan. Patient would like to hold off on mono testing at this time. Will do conservative treatment at home. 2. Eustachian tube dysfunction, right - ICD9: 381.81, ICD10: H69.91 -Recommend Flonase. -Rx for prednisone-may also help with tonsillar inflammation/pain.. Diagnosis and treatment plan were discussed and questions were answered to the patient's satisfaction. Pt acknowledged understanding of concepts and follow up plan. Specific signs and symptoms that would indicate the need for higher level of care were discussed in detail warranting prompt ER evaluation. AMILCAR Chavez documented in this encounter [facility] 05-07-2023 History of Presen t illness Narrative This note was created using [employer]. Subjective Aston Guevara is a 33 year old female. [...] & INFLUENZA A/B & RSV NAAT, ROUTINE Latanya Kirby PA-C documented in this encounter [facility] 05-07-2023 Instructions Latanya Kirby PA-C - 05/07/2023 9:41 AM EST May continue otc cold medications Flonase for nasal congestion If not better in one week be seen again documented in this encounter [facility] Evaluation note No assessment inform ation available [facility] Work Phone: Evaluation note Diagnosis Viral URI- Primary Acute upper respiratory infections of unspecified site [facility] Diagnosis Onset Date Resolution Status Breast mass, right acute [facility] Work Phone: Evaluation note* Diagnosis Urinary frequency- Primary Renal calculus Calculus of kidney [facility] Diagnosis Sore throat- Primary Acute pharyngitis Eustachian tube dysfunction, right [facility] Diagnosis Sore throat- Primary Acute pharyngitis [facility] Diagnosis Urinary frequency- Primary documented in this encounter [facility] Advance Directives Advance Directive Response Recorded Date/ Time Living Will No September 18, 2019 9 :55pm Power of [employer] No September 18, 2019 9:55pm Advance Directive Response Recorded Date/ Time Living Will No September 10, 2021 11:13pm Power of [employer] No September 10 11:13pm Advance Directive Response Recorded Date/ Time Living Will No September 10, 2021 10:13pm Power of [employer] No September 10 2 10:13pm Advance Directive Response Recorded Date/ Time Living Will No June 18, 2023 6:20pm Power of [employer] No June 17 6:20pm Advance Directive Response Recorded Date/ Time Living Will No June 20, 2023 9:06pm Power of [employer] No June 19 9:06pm Chief Complaint and Reason for Visit Chief Complaint OBESITY Chief Complaint OBESITY LEFT ANKLE INJURY Chief Complaint OBESITY SKIN Chief Complaint NEED ORDER Chief Complaint NEED ORDER EORDER LABS FROM Chief Complaint LUMP IN RIGHT BREAST BIRADS 4 R BREAST NODULE Reason for Visit Breast mass, right Chief Complaint LUMP IN RIGHT BREAST BIRADS 4 R BREAST NODULE R FLANK PAIN Reason for Visit Breast mass, right Chief Complaint LUMP IN RIGHT BREAST BIRADS 4 R BREAST NODULE R FLANK PAIN FLANK PAIN Reason for Visit Breast mass, right Chief Complaint LUMP IN RIGHT BREAST BIRADS 4 R BREAST NODULE R FLANK PAIN FLANK PAIN E ORDERS ALSO Reason for Visit Breast mass, right Family History Relationship Condition Age at Onset Recorded Date/T stefanie father Cardiac disease Unknown grandfather Malignant neoplasm of colon Unknown uncle Malignant neoplasm Unknown aunt Malignant neoplasm Unknown Summary Purpose Additional Source Comments Goals (unrecognized section and content) Goals may be documented in a n alternate sectionGoals may be documented in an alternate sectionGoals may be documented in an alternate sectionGoals may be documented in an alternate sectionGoals may be documented in an alternate sectionGoals may be documented in an alternate sectionGoals may be documented in an alternate sectionGoals may be documented in an alternate sectionGoals may be documented in an alternate sectionGoals may be documented in an alternate sectionGoals may be documented in an alternate section Care Teams (unrecognized sec tion and content) Team Status: Active Member Role Status Dates Dr. Naeem Romero MD Family Provider Active Dr. Naeem Romero MD Primary Care Provider Activ e Team Status: Inactive Member Role Status Dates Dr. Naeem Romero MD Primary Care Provider Activ e Juanita M Desmond , DO Attending Provider Active Team Status: Active Member Role Status Dates Dr. 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 Nadeem Sweet MD Attending Provider Active Team Status: Inactive Member Role Status Dates Juanita Logan , Primary Care Provider Active Dr. Nadeem Sweet MD Attending Provider, Referr ing Provider Active Team Status: Inactive Member Role Status Dates Juanita Logan DO Primary Care Provider Active AMILCAR Mccarty Attending Provider, Referring Provi dilan Active Team Status: Inactive Member Role Status Dates Juanita Logan , Primary Care Provider Active Dr. 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 Herbert Romeor MD Family Provider Active Delilah Machado MD Primary Care Provider Active Team Status: Inactive Member Role Status Dates Delilah Machado MD Primary Care Provide r, Attending Provider, Referring Provider Active Team Status: Inactive Member Role Status Dates Juanita Logan DO Primary Care Provider Active Dr. Nima Rosario , DO Attending Provider, Emergency P jolie Active Personal Service Workers Relationship Specialty Start Date End Date Juanita LoganeDO PCP - General Family Medicine 05/07/23 Personal Service Workers Relationship Specialty Start Date End Date Delilah Machado MD [address] [facility] [address] [place] [address] PCP - General Internal Medicine 09/07/24 Source Comments (unrecognize d section and content) In the event this informatio n is protected by the Federal Confidentiality of Alcohol and Drug Abuse Patient Records regulations: The Federal rules restrict any use of the information to criminally investigate or prosecute any alcohol or drug abuse patient.[facility] the event this information is protected by the Federal Confidentiality of Alcohol and Drug Abuse Patient Records regulations: The Federal rules restrict any use of the information to criminally investigate or prosecute any alcohol or drug abuse patient.[facility] the event this information is protected by the Federal Confidentiality of Alcohol and Drug Abuse Patient Records regulations: The Federal rules restrict any use of the information to criminally investigate or prosecute any alcohol or drug abuse patient.[facility] the event this information is protected by the Federal Confidentiality of Alcohol and Drug Abuse Patient Records regulations: The Federal rules restrict any use of the information to criminally investigate or prosecute any alcohol or drug abuse patient.[facility] the event this information is protected by the Federal Confidentiality of Alcohol and Drug Abuse Patient Records regulations: The Federal rules restrict any use of the information to criminally investigate or prosecute any alcohol or drug abuse patient.[facility] the event this information is protected by the Federal Confidentiality of Alcohol and Drug Abuse Patient Records regulations: The Federal rules restrict any use of the information to criminally investigate or prosecute any alcohol or drug abuse patient.[facility] Reason for Visit (unrecogniz ed section and content) Reason Comments Sore Throat HOPE, chills, diarrhea x 2 days Reason Comments Urinary Problem Reason Comments Results Reason Comments Sore Throat Right ear pain x5 da ys Reason Comments Same Day Appointment lymph node swollen x 1 day scratchy throat, no other symptoms Reason Comments Urinary Frequency Frequency, cloudy an d dark urine x 23 days INFORMATION SOURCE (unrecogn ized section and content) DATE CREATED AUTHOR 08/03/2024 [facility] DATE CREATED AUTHOR AUTHORStarr MARROQUIN 08/29/2024 [facility] FOR RECORDS PERTAINING TO PATIENTS WHO ARE [...] BE BASED ON THE PRIMARY CLINICAL RECORDS. [employer] provides no warranty or guarantee of the accuracy or completeness of information in this document.
== END | disposition home or self-care (01) ==
LOC: MFPLAB 09:59
PROVIDERS: PCP Family Medicine
DX: R31.9 Hematuria, unspecified (principal)
CPT/HCPCS: 36415; 80053; 85027

== ENCOUNTER → 2024-09-10 | Outpatient (CLI) | payer BC, SELFPAY ==
--- OUTSIDE RECORDS SUMMARY | 2024-09-10 22:20 | XMS RPT_ITS | CCD ---
Author Organization [facility] Care Team Providers Care Refuse Collector Name Role Phone Juanita Logan DO Primary Care Provider DO Juanita Logan Primary Care Provider [phone] DO Juanita Logan Referring Provider [phone] Dr. Nadeem Sweet Attending Provider DO Juanita Logan Primary Care Provider DO Juanita Logan Referring Provider Dr. Nadeem Sweet Attending Provider Juanita Logan DO Primary Care Provider [phone] Juanita Logan DO Primary Care Provider Delilah Rosario MD Primary Care Provider DELILAH ROSARIO Primary Care Unavailable HI CUMMINGS Attending Unavailable JUANITA LOGAN Primary Care UnavailYAMILEX Izaguirre Attending Unavailable Selwyn Nassar Attending Unavailable Selwyn Nassar Referring Unavailable Carter, Chalon Primary Care Unavailable Nadeem Sweet Attending Unavailable Nadeem Sweet Referring Unavailable Carter, Delilah Primary Care Unavailable Carter, Chalon Primary Care Unavailable Delilah Rosario Attending Unavailable Carter, Fabienneon Referring Unavailable Carter, Chalon Primary Care Unavailable Delilah Rosario Attending Unavailable Carter, Delilah Referring Unavailable Carter, Chalon Primary Care Unavailable Pat Pedraza Attending Unavailable Pat Pedraza Referring Unavailable Selwyn Nassar Attending Unavailable Carter, Chalon Primary Care Unavailable Medications Current Medications Medication Drug Class(es) Dates [...] / nitrofurantoin, monohydrate 75 mg oral capsule (2 sources) Nitrofuran Antibacterial Start: 09-07-2024 End: 09-12-2024 take [...] Comment on above: Take 2 tablets by mo uth once daily for 4 days. Take daily with food. semaglutide (OZEMPIC SUBCUTANEOUS) (7 sources) semaglutide (OZEMPIC SUBCUTANEOUS) Inject subcutaneously. Active [...] Active MG SC September 10, 2021 12:00am [id number] Completed/Discontinued Medications Medication Drug Class(es) Dates Sig [...] 09-19-2019 Episodic Genitourinary symptoms and ill-defined conditions (14 sources) Blood in urine; Translations: [Hematuria, unspecified] Onset: 09-07-2024 09-19-2019 Episodic Other nutritional; endocrine; and metabolic disorders (1 source) Obesity, unspecified; Translations: [Obesity, unspecified] Onset: 03-28-2024 Chronic Other upper respiratory infections (4 sources) [...] Test Name Value Interpretation Reference Range Facility Abdomen Single Viewon 2024 Abdomen Single View [facility] Imaging Services [address] [place], [place] [address] Abdomen Single View MR#: [id number] Acct: [id number] Name: ASTON GUEVARA Rep #: [id number] : 1990 F 34 From: Geovanni Carbajal PCP: Dr. Delilah Rosario MD Status: REG CLI Study: Abdomen Single View Date of Exam: 09/08/24 Exam# [id number] Ordering Dr: Selwyn Nassar NP TRIMMER CLIMBER -C PROCEDURE: ABDOMEN SINGLE VIEW 09/08/2024 REASON FOR EXAM: POSSIBLE KIDNEY STONES TECHNIQUE: Two-view supine abdomen fluid better later 1st phalanx aortic valvular is worker area of inwards ridiculous flow images were absolute COMPARISON: Abdomen study of 06/20/2023. FINDINGS: Bowel gas: Bowel gas pattern is normal. No evidence of bowel obstruction. Calcifications: Evaluation limited by overlying stool, but no urinary tract calculus is definitively seen. Bones: Mild degenerative changes of the spine. RAD/Abdomen Single View IMPRESSION: Unremarkable bowel-gas pattern. No definite calculus identified. Reading Location: [place] [address] CC: Selwyn OSBORNE TRIMMER CLIMBER-C Maday; Dr. Delilah Rosario MD Target Developer: Signed Normal [facility] CBC-Complete Blood Cnt No Di ffon 09-08-2024 Erythrocyte distribution width (RBC) [Ratio] 12.7 % Normal 11.6-14.6 [facility] Comment on above: Order Comment: Order Date: 09/08/24 Order Info: 10513-6 - CBC Performed By: #### L 100.0500 #### [facility] [address] [place], [address] Hematocrit (Bld) [Volume fraction] 41.5 % Normal 37-47 [facility] Comment on above: Order Comment: Order Date: 09/08/24 Order Info: [id number] - CBC Performed By: #### L 100.0500 #### [facility] [address] [place], [address] Hemoglobin (Bld) [Mass/Vol] 14.2 g/dL Normal 12.0-15.0 [facility] Comment on above: Order Comment: Order Date: 09/08/24 Order Info: [id number] - CBC Performed By: #### L 100.0500 #### [facility] [address] [place], [address] MCH (RBC) [Entitic mass] 30.2 pg Normal 27.0-32.0 [facility] Comment on above: Order Comment: Order Date: 09/08/24 Order Info: [id number] - CBC Performed By: #### L 100.0500 #### [facility] [address] [place], [address] MCHC (RBC) [Mass/Vol] 34.2 g/dL Normal 32-36 [facility] Comment on above: Order Comment: Order Date: 09/08/24 Order Info: [id number] - CBC Performed By: #### L 100.0500 #### [facility] [address] [place], [address] MCV (RBC) [Entitic vol] 88.3 fL Normal 81-99 [facility] Comment on above: Order Comment: Order Date: 09/08/24 Order Info: [id number] - CBC Performed By: #### L 100.0500 #### [facility] [address] [place], [address] Platelet mean volume (Bld) [Entitic vol] 11.0 fL Normal 6.2-12.0 [facility] Comment on above: Order Comment: Order Date: 09/08/24 Order Info: [id number] - CBC Performed By: #### L 100.0500 #### [facility] [address] [place], [address] Platelets (Bld) [#/Vol] 310 10*3/uL Normal 150-450 [facility] Comment on above: Order Comment: Order Date: 09/08/24 Order Info: [id number] - CBC Performed By: #### L 100.0500 #### [facility] [address] [place], [address] RBC (Bld) [#/Vol] 4.70 10*6/uL Normal 4.2-5.4 [facility] Comment on above: Order Comment: Order Date: 09/08/24 Order Info: [id number] - CBC Performed By: #### L 100.0500 #### [facility] [address] [place], [address] RDW SD 41.1 fl Normal 35.1-43.9 [facility] Comment on above: Order Comment: Order Date: 09/08/24 Order Info: [id number] - CBC Performed By: #### L 100.0500 #### [facility] [address] [place], [address] WBC (Bld) [#/Vol] 6.4 10*3/uL Normal 4.4-11.0 [facility] Comment on above: Order Comment: Order Date: 09/08/24 Order Info: [id number] - CBC Performed By: #### L 100.0500 #### [facility] [address] [place], [address] Comprehensive Metabolic Prof caon 09-08-2024 Albumin [Mass/Vol] 4.4 g/dL Normal 3.5-5.0 [facility] Comment on above: Order Comment: Order Date: 08/29/23 Order Info: 0786-1 - CMP Order Info: 3016-3 - TSH Performed By: #### L 506.1000, L100.0100, L500.4050, L501.9520 #### [facility] [address] [place], [address] Albumin/Globulin [Mass ratio] 1.6 {ratio} Normal 0.9-2.4 [facility] Comment on above: Order Comment: Order Date: 08/29/23 Order Info: 0786- - CMP Order Info: 3 - TSH Performed By: #### L 506.1000, L100.0100, L500.4050, L501.9520 #### [facility] [address] [place], [address] ALK PHOS 58 U/L Normal 35-104 [facility] Comment on above: Order Comment: Order Date: 08/29/23 Order Info: 785-03 - CMP Order Info: 3015-05 - TSH Performed By: #### L 506.1000, L100.0100, L500.4050, L501.9520 #### [facility] [address] [place], [address] ALT [Catalytic activity/Vol] 9 U/L Normal <=34 [facility] Comment on above: Order Comment: Order Date: 08/29/23 Order Info: 07 - CMP Order Info: 3 - TSH Performed By: #### L 506.1000, L100.0100, L500.4050, L501.9520 #### [facility] [address] [place], [address] AST [Catalytic activity/Vol] 13 U/L Normal <=31 [facility] Comment on above: Order Comment: Order Date: 08/29/23 Order Info: 07 - CMP Order Info: 3 - TSH Performed By: #### L 506.1000, L100.0100, L500.4050, L501.9520 #### [facility] [address] [place], [address] Bilirubin [Mass/Vol] 0.56 mg/dL Normal 0.00-1.30 [facility] Comment on above: Order Comment: Order Date: 08/29/23 Order Info: 0786-1 - CMP Order Info: 3015-3 - TSH Performed By: #### L 506.1000, L100.0100, L500.4050, L501.9520 #### [facility] [address] [place], [address] BUN/CRE 16.0 RATIO Normal 10-20 [facility] Comment on above: Order Comment: Order Date: 08/29/23 Order Info: 0786 - CMP Order Info: 3 - TSH Performed By: #### L 506.1000, L100.0100, L500.4050, L501.9520 #### [facility] [address] [place], [address] Calcium [Mass/Vol] 9.2 mg/dL Normal 7.6-11.0 [facility] Comment on above: Order Comment: Order Date: 08/29/23 Order Info: 0786- - CMP Order Info: 3 - TSH Performed By: #### L 506.1000, L100.0100, L500.4050, L501.9520 #### [facility] [address] [place], [address] Chloride [Moles/Vol] 104 mmol/L Normal 98-108 [facility] Comment on above: Order Comment: Order Date: 08/29/23 Order Info: 0786-1 - CMP Order Info: 301-3 - TSH Performed By: #### L 506.1000, L100.0100, L500.4050, L501.9520 #### [facility] [address] [place], [address] CO2 [Moles/Vol] 23.7 mmol/L Normal 21.0-32.0 [facility] Comment on above: Order Comment: Order Date: 08/29/23 Order Info: 0786-1 - CMP Order Info: 3016-3 - TSH Performed By: #### L 506.1000, L100.0100, L500.4050, L501.9520 #### [facility] [address] [place], [address] Creatinine [Mass/Vol] 0.67 mg/dL Low 0.70-1.20 [facility] Comment on above: Order Comment: Order Date: 08/29/23 Order Info: 0786-1 - [facility] Order Info: 3016-3 - TSH Performed By: #### L 506.1000, L100.0100, L500.4050, L501.9520 #### [facility] [address] [place], [address] GAP 11 Normal 5-15 [facility] Comment on above: Order Comment: Order Date: 08/29/23 Order Info: 0786-1 - [facility] Order Info: 3016-3 - TSH Performed By: #### L 506.1000, L100.0100, L500.4050, L501.9520 #### [facility] [address] [place], [address] GFR/1.73 sq M.predicted among non-blacks MDRD (S/P/Bld) [Vol rate/Area] 116 mL/min/{1.73_m2} Normal >60 [facility] Comment on above: Order Comment: Order Date: 08/29/23 Order Info: 0786-1 - [facility] Order Info: 3016-3 - TSH Result Comment: mL/m in/1.73m2 CKD-EPI Creatinine Equation (2020) Performed By: #### L 506.1000, L100.0100, L500.4050, L501.9520 #### [facility] [address] [place], [address] Globulin (S) [Mass/Vol] 2.8 g/dL Normal 2.2-4.2 [facility] Comment on above: Order Comment: Order Date: 08/29/23 Order Info: 0786-1 - CMP Order Info: 3015-3 - TSH Performed By: #### L 506.1000, L100.0100, L500.4050, L501.9520 #### [facility] [address] [place], [address] Glucose [Mass/Vol] 94 mg/dL Normal 70-99 [facility] Comment on above: Order Comment: Order Date: 08/29/23 Order Info: 0786-1 - CMP Order Info: 3 - TSH Performed By: #### L 506.1000, L100.0100, L500.4050, L501.9520 #### [facility] [address] [place], [address] Potassium [Moles/Vol] 4.1 mmol/L Normal 3.3-5.1 [facility] Comment on above: Order Comment: Order Date: 08/29/23 Order Info: 0786-1 - [facility] Order Info: 3 - TSH Performed By: #### L 506.1000, L100.0100, L500.4050, L501.9520 #### [facility] [address] [place], [address] Sodium [Moles/Vol] 139 mmol/L Normal 133-145 [facility] Comment on above: Order Comment: Order Date: 08/29/23 Order Info: 0786- - CMP Order Info: 3 - TSH Performed By: #### L 506.1000, L100.0100, L500.4050, L501.9520 #### [facility] [address] [place], [address] T PROT 7.2 g/dL Normal 5.9-8.4 [facility] Comment on above: Order Comment: Order Date: 08/29/23 Order Info: 0786-1 - CMP Order Info: 3013 - TSH Performed By: #### L 506.1000, L100.0100, L500.4050, L501.9520 #### [facility] [address] [place], [address] Urea nitrogen [Mass/Vol] 11 mg/dL Normal 4-19 [facility] Comment on above: Order Comment: Order Date: 08/29/23 Order Info: 0786-1 - CMP Order Info: 3016-3 - TSH Performed By: #### L 506.1000, L100.0100, L500.4050, L501.9520 #### [facility] [address] [place], [address] Bacteria Ur Culton 5 Bacteria identified Cx Nom (U) CULTURE, URINE: Mixed microbiota, including predominantly: ORGANISM ID: 1 10,000 -<50,000 CFU/ml Streptococcus anginosus No susceptibility testing done. Normal [facility] Comment on above: Performed By: #### 6 30-4 #### [facility] CLIA [id number] [address] [place] [address] OF [facility] CNOVon 09-07-2024 CNOV Office Visit (UCWSTR ) ----- ASTON GUEVARA ([id number]) 1990 F Date Time Provider Department 09/07/24 9:45 AM HI CUMMINGS WSTR During your visit today, we recorded the following information about you: Temperature Pulse Respiration Blood pressure 98.4 degrees 79/minute 18/minute 132/82 Weight 87.6 kg Hi Cummings APRN.CNP 09/07/2024 10:02 AM Signed This note was created using [employer]. Ernestine Aston Alanismegancaryn is a 34 year old female. HPI Patient presents today complaining of 2-3 days of urinary frequency and fatigue. She also notes cloudy urine. She does have a long history of kidney stones but denies any history of frequent UTIs. Denies any chance of . Denies any nausea vomiting or fever Review of Systems As above Objective BP 132/82 Pulse 79 Temp 36.9 ?C (98.4 ?F) (Tympanic) Resp 18 Wt 87.6 kg (193 lb 2 oz) LMP 05/20/2023 (Approximate) SpO2 100% BMI 31.17 kg/m? Physical Exam Vitals and nursing note reviewed. [...] - BACTERIAL CULTURE, URINE - NITROFURANTOIN MONOHYDRATE AND MACROCRYSTAL 100 MG ORAL CAP Hi Cummings APRN.HEATH Allergies As of Date: 09/07/2024 (No Known Allergies) Date Reviewed: 09/07/2024 Reviewed by: Hi Cummings APRN.QUANTOMETER OPERATOR - Fully Assessed Reason for Visit: Urinary Frequency [1086] Cmt: Frequency, cloudy and dark urine x 23 days Primary Visit Diagnosis:Urinary frequency [R35.0] Order(s):UA DIP, URINE (POC) [2634316] Order #: [id number]. #:[id number] 96-LAB BACTERIAL CULTURE, URINE [SQURCUL] Order #: [id number]. #:[id number] nitrofurantoin monohydrate and macrocrystal (MACROBID) 100 mg capsuleTake 1 capsule by mouth two times a day for 5 days.Disp: 10 capsuleRfl: 0 Prescriptions as of 09/07/2024 - nitrofurantoin monohydrate and macrocrystal (MACROBID) 100 mg capsule Take 1 capsule by mouth two times a day for 5 days. - semaglutide (OZEMPIC SUBCUTANEOUS) Inject subcutaneously. Problem List As Of Date: 09/07/2024 (None) Prescriptions ordered this encounter Disp Refills Start End NITROFURANTOIN MONOHYDRATE AND MACROCR* 10 c* 0 09/07/2024 09/12/2024 Route: PO Sig: Take 1 capsule by mouth two times a day for 5 days. Encounter Status:Closed by HI CUMMINGS on 09/07/24 Normal [facility] UA DIP, URINE (POC)on 2024 BILIRUBIN UA (POCT) Negative Negative [facility] CLARITY UA (POCT) Clear [facility] COLOR UA (POCT) Leonila [facility] GLUCOSE UA (POCT) Negative Negative mg/dL [facility] Hemoglobin Ql (U) Large Abnormal Negative [facility] Interpretation and review of laboratory results Abnormal [facility] KETONE UA (POCT) Negative Negative mg/dL [facility] LEUKOCYTES UA (POCT) Negative Negative [facility] NITRITE UA (POCT) Negative Negative [facility] PH UA (POCT) 7 4.5 - 8.0 [facility] Protein Ql (U) Negative Negative mg/dL [facility] SPECIFIC GRAVITY UA (POCT) 1.02 1.005 - 1.030 [facility] UROBILINOGEN UA (POCT) 0.2 Willa l E.U./dL [facility] Location:[facility], [address] [place] [address], [place], [place], [id number] [place] [address] POINT OF CARE [facility] CNOVon 08-02-2024 CNOV Office Visit (UCWSTR ) ----- ASTON GUEVARA ([id number]) 1990 F Date Time Provider Department 08/02/24 9:30 AM YAMILEX SHERIFF During your visit today, we recorded the following information about you: Temperature Pulse Respiration Blood pressure 99.3 degrees 90/minute 12/minute 122/82 Weight Height 85.2 kg 1.676 m Yamilex Sheriff APRN.QUANTOMETER OPERATOR 08/02/2024 10:34 AM Signed Subjective HPI Aston [...] days Rest Motrin as needed Yamilex Sheriff APRN.QUANTOMETER OPERATOR Allergies As of Date: 08/02/2024 (No Known Allergies) Date Reviewed: 08/02/2024 Reviewed by: Lilibeth Mccloud LPN - Fully Assessed Reason for Visit: Same Day Appointment [255] Cmt: lymph node swollen x 1 day scratchy throat, no other symptoms Primary Visit Diagnosis:Sore throat [J02.9] Order(s):STREP A MOLECULAR (POC) [2258205] Order #: [id number]. #:[id number] 21-LAB Prescriptions as of 08/02/2024 - semaglutide (OZEMPIC SUBCUTANEOUS) Inject subcutaneously. Problem List As Of Date: 08/02/2024 (None) Encounter Status:Closed by YAMILEX SHERIFF on 08/02/24 Normal [facility] STREP A MOLECULAR (POC)on Procedural Control Valid [facility] Strep A (POCT) Negative Negative [facility] CBC W/Diff, Automatedon 06-18 Absolute Lymph 1.40 X10 3/uL Normal 0.83-4.51 [facility] Comment on above: Order Comment: Order Date: 07/15/24 Order Info: 0184-1 - CBCD Performed By: #### L 500.4050, L100.0100, L501.9520 #### [facility] [address] [place], [address] Absolute Neut 5.0 X10 3/uL Normal 2.0-7.7 [facility] Comment on above: Order Comment: Order Date: 07/15/24 Order Info: 0184-1 - CBCD Performed By: #### L 500.4050, L100.0100, L501.9520 #### [facility] [address] [place], [address] Basophils/100 WBC (Bld) 0.7 % Normal 0-1 [facility] Comment on above: Order Comment: Order Date: 07/15/24 Order Info: 0184-1 - CBCD Performed By: #### L 500.4050, L100.0100, L501.9520 #### [facility] [address] [place], [address] Eosinophils/100 WBC (Bld) 0.4 % Normal 0-5 [facility] Comment on above: Order Comment: Order Date: 07/15/24 Order Info: 0184-1 - CBCD Performed By: #### L 500.4050, L100.0100, L501.9520 #### [facility] [address] [place], [address] Erythrocyte distribution width (RBC) [Ratio] 12.6 % Normal 11.6-14.6 [facility] Comment on above: Order Comment: Order Date: 07/15/24 Order Info: 0184-1 - CBCD Performed By: #### L 500.4050, L100.0100, L501.9520 #### [facility] [address] [place], [address] Hematocrit (Bld) [Volume fraction] 42.2 % Normal 37-47 [facility] Comment on above: Order Comment: Order Date: 07/15/24 Order Info: 0184- - CBCD Performed By: #### L 500.4050, L100.0100, L501.9520 #### [facility] [address] [place], [address] Hemoglobin (Bld) [Mass/Vol] 14.3 g/dL Normal 12.0-15.0 [facility] Comment on above: Order Comment: Order Date: 07/15/24 Order Info: 0184- - CBCD Performed By: #### L 500.4050, L100.0100, L501.9520 #### [facility] [address] [place], [address] IG% 0.300 Normal 0.0-0.9 [facility] Comment on above: Order Comment: Order Date: 07/15/24 Order Info: 0184-1 - CBCD Result Comment: IG% - Immature Granulocytes (promyelocytes, myelocytes and metamyelocytes) > 1% indicates that a LEFT SHIFT is Present. Performed By: #### L 500.4050, L100.0100, L501.9520 #### [facility] [address] [place], [address] Lymphocytes/100 WBC (Bld) 20.4 % Normal 19-41 [facility] Comment on above: Order Comment: Order Date: 07/15/24 Order Info: 0184-1 - CBCD Performed By: #### L 500.4050, L100.0100, L501.9520 #### [facility] [address] [place], [address] MCH (RBC) [Entitic mass] 29.7 pg Normal 27.0-32.0 [facility] Comment on above: Order Comment: Order Date: 07/15/24 Order Info: 0184-1 - CBCD Performed By: #### L 500.4050, L100.0100, L501.9520 #### [facility] [address] [place], [address] MCHC (RBC) [Mass/Vol] 33.9 g/dL Normal 32-36 [facility] Comment on above: Order Comment: Order Date: 07/15/24 Order Info: 018-1 - CBCD Performed By: #### L 500.4050, L100.0100, L501.9520 #### [facility] [address] [place], [address] MCV (RBC) [Entitic vol] 87.7 fL Normal 81-99 [facility] Comment on above: Order Comment: Order Date: 07/15/24 Order Info: 018- - CBCD Performed By: #### L 500.4050, L100.0100, L501.9520 #### [facility] [address] [place], [address] Monocytes/100 WBC (Bld) 4.8 % Normal 0-10 [facility] Comment on above: Order Comment: Order Date: 07/15/24 Order Info: 0184-1 - CBCD Performed By: #### L 500.4050, L100.0100, L501.9520 #### [facility] [address] [place], [address] Neutrophils/100 WBC (Bld) 73.4 % High 47-70 [facility] Comment on above: Order Comment: Order Date: 07/15/24 Order Info: 0184-1 - CBCD Performed By: #### L 500.4050, L100.0100, L501.9520 #### [facility] [address] [place], [address] Nucleated RBC (Bld) [#/Vol] 0 10*3/uL Normal 0-5 [facility] Comment on above: Order Comment: Order Date: 07/15/24 Order Info: 0184-1 - CBCD Performed By: #### L 500.4050, L100.0100, L501.9520 #### [facility] [address] [place], [address] Platelet mean volume (Bld) [Entitic vol] 11.5 fL Normal 6.2-12.0 [facility] Comment on above: Order Comment: Order Date: 07/15/24 Order Info: 0184-1 - CBCD Performed By: #### L 500.4050, L100.0100, L501.9520 #### [facility] [address] [place], [address] Platelets (Bld) [#/Vol] 277 10*3/uL Normal 150-450 [facility] Comment on above: Order Comment: Order Date: 07/15/24 Order Info: 0184-1 - CBCD Performed By: #### L 500.4050, L100.0100, L501.9520 #### [facility] [address] [place], [address] RBC (Bld) [#/Vol] 4.81 10*6/uL Normal 4.2-5.4 [facility] Comment on above: Order Comment: Order Date: 07/15/24 Order Info: 0184-1 - CBCD Performed By: #### L 500.4050, L100.0100, L501.9520 #### [facility] [address] [place], [address] RDW SD 40.8 fl Normal 35.1-43.9 [facility] Comment on above: Order Comment: Order Date: 07/15/24 Order Info: 0184-1 - CBCD Performed By: #### L 500.4050, L100.0100, L501.9520 #### [facility] [address] [place], [address] WBC (Bld) [#/Vol] 6.9 10*3/uL Normal 4.4-11.0 [facility] Comment on above: Order Comment: Order Date: 07/15/24 Order Info: 0184-1 - CBCD Performed By: #### L 500.4050, L100.0100, L501.9520 #### [facility] [address] [place], [address] Comprehensive Metabolic Prof ilon 07-15-2024 Albumin [Mass/Vol] 4.4 g/dL Normal 3.5-5.0 [facility] Comment on above: Order Comment: Order Date: 07/15/24 Order Info: 0786-1 - CMP Order Info: 3016-3 - TSH Performed By: #### L 500.4050, L100.0100, L501.9520 #### [facility] [address] [place], [address] Albumin/Globulin [Mass ratio] 1.5 {ratio} Normal 0.9-2.4 [facility] Comment on above: Order Comment: Order Date: 07/15/24 Order Info: 0786-1 - CMP Order Info: 3016-3 - TSH Performed By: #### L 500.4050, L100.0100, L501.9520 #### [facility] [address] [place], [address] ALK PHOS 54 U/L Normal 35-104 [facility] Comment on above: Order Comment: Order Date: 07/15/24 Order Info: 0786-1 - CMP Order Info: 3016-3 - TSH Performed By: #### L 500.4050, L100.0100, L501.9520 #### [facility] [address] [place], [address] ALT [Catalytic activity/Vol] 6 U/L Normal <=34 [facility] Comment on above: Order Comment: Order Date: 07/15/24 Order Info: 0786-1 - CMP Order Info: 3015-3 - TSH Performed By: #### L 500.4050, L100.0100, L501.9520 #### [facility] [address] [place], [address] AST [Catalytic activity/Vol] 13 U/L Normal <=31 [facility] Comment on above: Order Comment: Order Date: 07/15/24 Order Info: 0786-1 - CMP Order Info: 3015-3 - TSH Performed By: #### L 500.4050, L100.0100, L501.9520 #### [facility] [address] [place], [address] Bilirubin [Mass/Vol] 0.35 mg/dL Normal 0.00-1.30 [facility] Comment on above: Order Comment: Order Date: 07/15/24 Order Info: 0786-1 - CMP Order Info: 3015-3 - TSH Performed By: #### L 500.4050, L100.0100, L501.9520 #### [facility] [address] [place], [address] BUN/CRE 23.5 RATIO High 10-20 [facility] Comment on above: Order Comment: Order Date: 07/15/24 Order Info: 0786-1 - CMP Order Info: 3015-3 - TSH Performed By: #### L 500.4050, L100.0100, L501.9520 #### [facility] [address] [place], [address] Calcium [Mass/Vol] 9.0 mg/dL Normal 7.6-11.0 [facility] Comment on above: Order Comment: Order Date: 07/15/24 Order Info: 0786-1 - CMP Order Info: 6-3 - TSH Performed By: #### L 500.4050, L100.0100, L501.9520 #### [facility] [address] [place], [address] Chloride [Moles/Vol] 104 mmol/L Normal 98-108 [facility] Comment on above: Order Comment: Order Date: 07/15/24 Order Info: 071 - CMP Order Info: 3 - TSH Performed By: #### L 500.4050, L100.0100, L501.9520 #### [facility] [address] [place], [address] CO2 [Moles/Vol] 22.9 mmol/L Normal 21.0-32.0 [facility] Comment on above: Order Comment: Order Date: 07/15/24 Order Info: 785-03 - CMP Order Info: 3 - TSH Performed By: #### L 500.4050, L100.0100, L501.9520 #### [facility] [address] [place], [address] Creatinine [Mass/Vol] 0.72 mg/dL Normal 0.70-1.20 [facility] Comment on above: Order Comment: Order Date: 07/15/24 Order Info: 07 - CMP Order Info: 3 - TSH Performed By: #### L 500.4050, L100.0100, L501.9520 #### [facility] [address] [place], [address] GAP 12 Normal 5-15 [facility] Comment on above: Order Comment: Order Date: 07/15/24 Order Info: 07861 - CMP Order Info: 3 - TSH Performed By: #### L 500.4050, L100.0100, L501.9520 #### [facility] [address] [place], [address] GFR/1.73 sq M.predicted among non-blacks MDRD (S/P/Bld) [Vol rate/Area] 111 mL/min/{1.73_m2} Normal >60 [facility] Comment on above: Order Comment: Order Date: 07/15/24 Order Info: 0786- - CMP Order Info: 3 - TSH Result Comment: mL/m in/1.73m2 CKD-EPI Creatinine Equation (2020) Performed By: #### L 500.4050, L100.0100, L501.9520 #### [facility] [address] [place], [address] Globulin (S) [Mass/Vol] 2.9 g/dL Normal 2.2-4.2 [facility] Comment on above: Order Comment: Order Date: 07/15/24 Order Info: 0786- - CMP Order Info: 3 - TSH Performed By: #### L 500.4050, L100.0100, L501.9520 #### [facility] [address] [place], [address] Glucose [Mass/Vol] 92 mg/dL Normal 70-99 [facility] Comment on above: Order Comment: Order Date: 07/15/24 Order Info: 0786- - CMP Order Info: 3015-05 - TSH Performed By: #### L 500.4050, L100.0100, L501.9520 #### [facility] [address] [place], [address] Potassium [Moles/Vol] 3.9 mmol/L Normal 3.3-5.1 [facility] Comment on above: Order Comment: Order Date: 07/15/24 Order Info: 0786-1 - CMP Order Info: 30108-19 - TSH Performed By: #### L 500.4050, L100.0100, L501.9520 #### [facility] [address] [place], [address] Sodium [Moles/Vol] 138 mmol/L Normal 133-145 [facility] Comment on above: Order Comment: Order Date: 07/15/24 Order Info: 0786-1 - [facility] Order Info: 3 - TSH Performed By: #### L 500.4050, L100.0100, L501.9520 #### [facility] [address] [place], [address] T PROT 7.2 g/dL Normal 5.9-8.4 [facility] Comment on above: Order Comment: Order Date: 07/15/24 Order Info: 0786-1 - [facility] Order Info: 3 - TSH Performed By: #### L 500.4050, L100.0100, L501.9520 #### [facility] [address] [place], [address] Urea nitrogen [Mass/Vol] 17 mg/dL Normal 4-19 [facility] Comment on above: Order Comment: Order Date: 07/15/24 Order Info: 0786- - [facility] Order Info: 3015-05 - TSH Performed By: #### L 500.4050, L100.0100, L501.9520 #### [facility] [address] [place], [address] Thyroid Stim Hormone (TSH)on 07-15-2024 TSH 3.970 uIU/mL Normal 0.300-4.200 [facility] Comment on above: Order Comment: Order Date: 07/15/24 Order Info: 0786-1 - [facility] Order Info: 3 - TSH Performed By: #### L 500.4050, L100.0100, L501.9520 #### [facility] [address] [place], [address] Vitamin D,25 Hydroxyon 07-15 Vitamin D 25-OH 57.5 ng/mL Normal 30-100 [facility] Comment on above: Order Comment: Order Date: 08/29/23 Order Info: 0786-1 - [facility] Order Info: 3015-3 - TSH Result Comment: Dory min D Status Deficiency: <20 ng/mL (50nmol/L) Insufficiency: 20-30 ng/mL (50-75 nmol/L) Sufficiency: 30-100 ng/mL (75-250 nmol/L) Toxicity: >100 ng/mL (>250 nmol/L) Performed By: #### L 506.1000, L100.0100, L500.4050, L501.9520 #### [facility] [address] [place], [address] CBC W/Diff, Automatedon 02-16 0-2023 Absolute Lymph 2.69 X10 3/uL Normal 0.83-4.51 [facility] Comment on above: Order Comment: Order Date: 08/29/23 Order Info: 018- - CBCD Performed By: #### L 506.1000, L100.0100, L500.4050, L501.9520 #### [facility] [address] [place], [address] Absolute Neut 6.6 X10 3/uL Normal 2.0-7.7 [facility] Comment on above: Order Comment: Order Date: 08/29/23 Order Info: 018- - CBCD Performed By: #### L 506.1000, L100.0100, L500.4050, L501.9520 #### [facility] [address] [place], [address] Basophils/100 WBC (Bld) 0.8 % Normal 0-1 [facility] Comment on above: Order Comment: Order Date: 08/29/23 Order Info: 0184- - CBCD Performed By: #### L 506.1000, L100.0100, L500.4050, L501.9520 #### [facility] [address] [place], [address] Eosinophils/100 WBC (Bld) 1.3 % Normal 0-5 [facility] Comment on above: Order Comment: Order Date: 08/29/23 Order Info: 0184-1 - CBCD Performed By: #### L 506.1000, L100.0100, L500.4050, L501.9520 #### [facility] [address] [place], [address] Erythrocyte distribution width (RBC) [Ratio] 13.1 % Normal 11.6-14.6 [facility] Comment on above: Order Comment: Order Date: 08/29/23 Order Info: 0184-1 - CBCD Performed By: #### L 506.1000, L100.0100, L500.4050, L501.9520 #### [facility] [address] [place], [address] Hematocrit (Bld) [Volume fraction] 40.9 % Normal 37-47 [facility] Comment on above: Order Comment: Order Date: 08/29/23 Order Info: 0184- - CBCD Performed By: #### L 506.1000, L100.0100, L500.4050, L501.9520 #### [facility] [address] [place], [address] Hemoglobin (Bld) [Mass/Vol] 13.5 g/dL Normal 12.0-15.0 [facility] Comment on above: Order Comment: Order Date: 08/29/23 Order Info: 0184-1 - CBCD Performed By: #### L 506.1000, L100.0100, L500.4050, L501.9520 #### [facility] [address] [place], [address] IG% 0.700 Normal 0.0-0.9 [facility] Comment on above: Order Comment: Order Date: 08/29/23 Order Info: 0184-1 - CBCD Result Comment: IG% - Immature Granulocytes (promyelocytes, myelocytes and metamyelocytes) > 1% indicates that a LEFT SHIFT is Present. Performed By: #### L 506.1000, L100.0100, L500.4050, L501.9520 #### [facility] [address] [place], [address] Lymphocytes/100 WBC (Bld) 26.6 % Normal 19-41 [facility] Comment on above: Order Comment: Order Date: 08/29/23 Order Info: 0184-1 - CBCD Performed By: #### L 506.1000, L100.0100, L500.4050, L501.9520 #### [facility] [address] [place], [address] MCH (RBC) [Entitic mass] 29.4 pg Normal 27.0-32.0 [facility] Comment on above: Order Comment: Order Date: 08/29/23 Order Info: 018-1 - CBCD Performed By: #### L 506.1000, L100.0100, L500.4050, L501.9520 #### [facility] [address] [place], [address] MCHC (RBC) [Mass/Vol] 33.0 g/dL Normal 32-36 [facility] Comment on above: Order Comment: Order Date: 08/29/23 Order Info: 018-1 - CBCD Performed By: #### L 506.1000, L100.0100, L500.4050, L501.9520 #### [facility] [address] [place], [address] MCV (RBC) [Entitic vol] 89.1 fL Normal 81-99 [facility] Comment on above: Order Comment: Order Date: 08/29/23 Order Info: 0184-1 - CBCD Performed By: #### L 506.1000, L100.0100, L500.4050, L501.9520 #### [facility] [address] [place], [address] Monocytes/100 WBC (Bld) 5.8 % Normal 0-10 [facility] Comment on above: Order Comment: Order Date: 08/29/23 Order Info: 0184-1 - CBCD Performed By: #### L 506.1000, L100.0100, L500.4050, L501.9520 #### [facility] [address] [place], [address] Neutrophils/100 WBC (Bld) 64.8 % Normal 47-70 [facility] Comment on above: Order Comment: Order Date: 08/29/23 Order Info: 018-1 - CBCD Performed By: #### L 506.1000, L100.0100, L500.4050, L501.9520 #### [facility] [address] [place], [address] Nucleated RBC (Bld) [#/Vol] 0 10*3/uL Normal 0-5 [facility] Comment on above: Order Comment: Order Date: 08/29/23 Order Info: 018- - CBCD Performed By: #### L 506.1000, L100.0100, L500.4050, L501.9520 #### [facility] [address] [place], [address] Platelet mean volume (Bld) [Entitic vol] 11.6 fL Normal 6.2-12.0 [facility] Comment on above: Order Comment: Order Date: 08/29/23 Order Info: 018- - CBCD Performed By: #### L 506.1000, L100.0100, L500.4050, L501.9520 #### [facility] [address] [place], [address] Platelets (Bld) [#/Vol] 326 10*3/uL Normal 150-450 [facility] Comment on above: Order Comment: Order Date: 08/29/23 Order Info: 0184-1 - CBCD Performed By: #### L 506.1000, L100.0100, L500.4050, L501.9520 #### [facility] [address] [place], [address] RBC (Bld) [#/Vol] 4.59 10*6/uL Normal 4.2-5.4 [facility] Comment on above: Order Comment: Order Date: 08/29/23 Order Info: 0184-1 - CBCD Performed By: #### L 506.1000, L100.0100, L500.4050, L501.9520 #### [facility] [address] [place], [address] RDW SD 42.5 fl Normal 35.1-43.9 [facility] Comment on above: Order Comment: Order Date: 08/29/23 Order Info: 0184-1 - CBCD Performed By: #### L 506.1000, L100.0100, L500.4050, L501.9520 #### [facility] [address] [place], [address] WBC (Bld) [#/Vol] 10.1 10*3/uL Normal 4.4-11.0 [facility] Comment on above: Order Comment: Order Date: 08/29/23 Order Info: 0184-1 - CBCD Performed By: #### L 506.1000, L100.0100, L500.4050, L501.9520 #### [facility] [address] [place], [address] Comprehensive Metabolic Prof ilon 02-26-2024 Albumin [Mass/Vol] 4.0 g/dL Normal 3.2-5.0 [facility] Comment on above: Order Comment: Order Date: 08/29/23 Order Info: 0786-1 - CMP Order Info: 3016-3 - TSH Performed By: #### L 506.1000, L100.0100, L500.4050, L501.9520 #### [facility] [address] [place], [address] Albumin/Globulin [Mass ratio] 1.2 {ratio} Normal 0.9-2.4 [facility] Comment on above: Order Comment: Order Date: 08/29/23 Order Info: 0786-1 - CMP Order Info: 3015-05 - TSH Performed By: #### L 506.1000, L100.0100, L500.4050, L501.9520 #### [facility] [address] [place], [address] ALK P 61 U/L Normal 45-117 [facility] Comment on above: Order Comment: Order Date: 08/29/23 Order Info: 785-03 - [facility] Order Info: 3015-05 - TSH Performed By: #### L 506.1000, L100.0100, L500.4050, L501.9520 #### [facility] [address] [place], [address] ALT [Catalytic activity/Vol] 11 U/L Low 13-56 [facility] Comment on above: Order Comment: Order Date: 08/29/23 Order Info: 785-03 - [facility] Order Info: 3015-05 - TSH Performed By: #### L 506.1000, L100.0100, L500.4050, L501.9520 #### [facility] [address] [place], [address] AST [Catalytic activity/Vol] 11 U/L Low 15-37 [facility] Comment on above: Order Comment: Order Date: 08/29/23 Order Info: 07 - [facility] Order Info: 3015-05 - TSH Performed By: #### L 506.1000, L100.0100, L500.4050, L501.9520 #### [facility] [address] [place], [address] Bilirubin [Mass/Vol] 0.50 mg/dL Normal 0.20-1.00 [facility] Comment on above: Order Comment: Order Date: 08/29/23 Order Info: 0786 - [facility] Order Info: 3 - TSH Result Comment: For patients on eltrombopag therapy, use of Dimension [place] TBIL is not recommended. Performed By: #### L 506.1000, L100.0100, L500.4050, L501.9520 #### [facility] [address] [place], [address] BUN/CRE 25.9 RATIO High 10-20 [facility] Comment on above: Order Comment: Order Date: 08/29/23 Order Info: 0786 - CMP Order Info: 3 - TSH Performed By: #### L 506.1000, L100.0100, L500.4050, L501.9520 #### [facility] [address] [place], [address] CA,Total 9.1 mg/dL Normal 8.5-10.1 [facility] Comment on above: Order Comment: Order Date: 08/29/23 Order Info: 07 - CMP Order Info: 3015-05 - TSH Performed By: #### L 506.1000, L100.0100, L500.4050, L501.9520 #### [facility] [address] [place], [address] Chloride [Moles/Vol] 105 mmol/L Normal 98-107 [facility] Comment on above: Order Comment: Order Date: 08/29/23 Order Info: 0786- - CMP Order Info: 3 - TSH Performed By: #### L 506.1000, L100.0100, L500.4050, L501.9520 #### [facility] [address] [place], [address] CO2 [Moles/Vol] 28.0 mmol/L Normal 21.0-32.0 [facility] Comment on above: Order Comment: Order Date: 08/29/23 Order Info: 0786- - CMP Order Info: 3013 - TSH Performed By: #### L 506.1000, L100.0100, L500.4050, L501.9520 #### [facility] [address] [place], [address] Creatinine [Mass/Vol] 0.66 mg/dL Normal 0.55-1.02 [facility] Comment on above: Order Comment: Order Date: 08/29/23 Order Info: 0786-1 - CMP Order Info: 3016 - TSH Result Comment: The validity of the calculated GFR GFRAA in patients over 70 years has not been determined. Clinical correlation is essential. Performed By: #### L 506.1000, L100.0100, L500.4050, L501.9520 #### [facility] [address] [place], [address] EST GFR - AA 131 mL/min Normal >60 [facility] Comment on above: Order Comment: Order Date: 08/29/23 Order Info: 0786- - CMP Order Info: 30108-19 - TSH Result Comment: Afri can Lithuanian GFR Calc Performed By: #### L 506.1000, L100.0100, L500.4050, L501.9520 #### [facility] [address] [place], [address] GAP 5 Normal 5-15 [facility] Comment on above: Order Comment: Order Date: 08/29/23 Order Info: 0786-1 - [facility] Order Info: 3016 - TSH Performed By: #### L 506.1000, L100.0100, L500.4050, L501.9520 #### [facility] [address] [place], [address] GFR/1.73 sq M.predicted among non-blacks MDRD (S/P/Bld) [Vol rate/Area] 108 mL/min/{1.73_m2} Normal >60 [facility] Comment on above: Order Comment: Order Date: 08/29/23 Order Info: 0786-1 - [facility] Order Info: 30108-19 - TSH Result Comment: Non- GFR Calc Performed By: #### L 506.1000, L100.0100, L500.4050, L501.9520 #### [facility] [address] [place], [address] Globulin (S) [Mass/Vol] 3.2 g/dL Normal 2.2-4.2 [facility] Comment on above: Order Comment: Order Date: 08/29/23 Order Info: 0786-1 - CMP Order Info: 3015-3 - TSH Performed By: #### L 506.1000, L100.0100, L500.4050, L501.9520 #### [facility] [address] [place], [address] Glucose [Mass/Vol] 83 mg/dL Normal 74-106 [facility] Comment on above: Order Comment: Order Date: 08/29/23 Order Info: 0786- - CMP Order Info: 3 - TSH Performed By: #### L 506.1000, L100.0100, L500.4050, L501.9520 #### [facility] [address] [place], [address] Potassium [Moles/Vol] 3.4 mmol/L Low 3.5-5.1 [facility] Comment on above: Order Comment: Order Date: 08/29/23 Order Info: 0786- - [facility] Order Info: 3013 - TSH Performed By: #### L 506.1000, L100.0100, L500.4050, L501.9520 #### [facility] [address] [place], [address] Sodium [Moles/Vol] 138 mmol/L Normal 136-145 [facility] Comment on above: Order Comment: Order Date: 08/29/23 Order Info: 0786- - [facility] Order Info: 3013 - TSH Performed By: #### L 506.1000, L100.0100, L500.4050, L501.9520 #### [facility] [address] [place], [address] T PROT 7.2 g/dL Normal 6.4-8.2 [facility] Comment on above: Order Comment: Order Date: 08/29/23 Order Info: 0786-1 - [facility] Order Info: 3016-3 - TSH Performed By: #### L 506.1000, L100.0100, L500.4050, L501.9520 #### [facility] [address] [place], [address] Urea nitrogen [Mass/Vol] 17 mg/dL Normal 7-18 [facility] Comment on above: Order Comment: Order Date: 08/29/23 Order Info: 0786-1 - [facility] Order Info: 3016-3 - TSH Performed By: #### L 506.1000, L100.0100, L500.4050, L501.9520 #### [facility] [address] [place], [address] Thyroid Stim Hormone (TSH)on 02-26-2024 TSH 3.340 uIU/mL Normal 0.358-3.740 [facility] Comment on above: Order Comment: Order Date: 08/29/23 Order Info: 0786-1 - [facility] Order Info: 3016-3 - TSH Performed By: #### L 506.1000, L100.0100, L500.4050, L501.9520 #### [facility] [address] [place], [address] Vitamin D,25 Hydroxyon 02-25 Vitamin D 25-OH 21.8 ng/mL Normal [facility] Comment on above: Order Comment: Order Date: 08/29/23 Order Info: 76470-5 - VITD25 Result Comment: Dory min D 25(OH) Status Range Deficiency <20 ng/mL (50nmol/L) Insufficiency 20 - 30 ng/mL (50 - 75 nmol/L) Sufficiency 30 - 100 ng/mL (75 - 250 nmol/L) Toxicity >100 ng/mL (>250 nmol/L) Performed By: #### L 506.1000, L100.0100, L500.4050, L501.9520 #### [facility] [address] [place], [address] Breast Limited Unilateralon 11-21-2023 Breast Limited Unilateral [facility] [address] [place], [place] [address] Breast Limited Unilateral MR#: [id number] Acct: [id number] Name: ASTON GUEVARA Rep #: [id number] : 1990 F 33 From: Alex hopper MD PCP: Dr. Delilah Rosario MD Status: REG CLI Study: Breast Limited Unilateral Date of Exam: Exam# [id number] Ordering Dr: Nadeem Sweet [id number] STUDY: ULTRASOUND BREAST - RIGHT REASON FOR [...] Signed: Alex Alvarado MD at 13:56 EDT , CC: Dr. Nadeem Sweet MD; Dr. Delilah Rosario MD Target Developer: Signed Normal [facility] UA DIP, URINE (POC)on 2023 BILIRUBIN UA (POCT) Small Abnormal Negative [facility] CLARITY UA (POCT) Clear [facility] COLOR UA (POCT) Yellow [facility] GLUCOSE UA (POCT) Negative Negative mg/dL [facility] Hemoglobin Ql (U) Large Abnormal Negative [facility] Interpretation and review of laboratory results Abnormal [facility] KETONE UA (POCT) Trace Negative mg/dL [facility] LEUKOCYTES UA (POCT) Negative Negative [facility] NITRITE UA (POCT) Negative Negative [facility] PH UA (POCT) 6.0 4.5 - 8.0 [facility] Protein Ql (U) 100 mg/dL Abnormal Negative [facility] SPECIFIC GRAVITY UA (POCT) >=1.030 1.005 - 1.030 [facility] UROBILINOGEN UA (POCT) 0.2 Willa l E.U./dL [facility] Location:[facility], [address] [place] [address], [place], [place], [id number] [place] [address] POINT OF CARE [facility] Serum or plasma thyroid stim ulating hormone (TSH) measurement (units/volume)Ordered By: Delilah Rosario on 07-11-2023 TSH Qn 1.89 uIU/mL 0.358-3.74 [facility] Thin prep Papanicolaou smear with manual screeningOrdered By: Delilah Rosario on 07-11-2023 Thin prep Papanicolaou smear with manual screening 1.20 ng/dL 0.76-1.46 [facility] STREP A MOLECULAR (POC)on Procedural Control Valid [facility] Strep A (POCT) Negative Negative [facility] Absolute lymphocyte countOrd ered By: Nima Rosario on 06-20-2023 Lymphocytes Auto (Unsp spec) [#/Vol] 0.83 10*3/uL 0.83-4.51 [facility] Automated lymphocyte count a s percentage of total leukocytesOrdered By: Nima Rosario on 06-20-2023 Lymphocytes/100 WBC Auto (Unsp spec) 4.6 % 19-41 [facility] Basophil percentageOrdered B y: Nima Rosario on 06-20-2023 Basophil percentage 0 SEEN /hpf 0-5 [facility] Basophils/100 WBC (Bld) 0.4 % 0-1 [facility] Chloride [Moles/Vol] 106 mmol/L 98-107 [facility] Eosinophils/100 WBC (Bld) 0.1 % 0-5 [facility] Glucose [Mass/Vol] 125 mg/dL 74-106 [facility] Comment on above: Fasting Glucose resu lt from 100 to 125 mg/dL suggests IMPAIRED HOMEOSTASIS per A.D.A. criteria. Hemoglobin (Bld) [Mass/Vol] 14.4 g/dL 12.0-15.0 [facility] Monocytes/100 WBC (Bld) 3.7 % 0-10 [facility] Neutrophils (Bld) [#/Vol] 16.3 10*3/uL 2.0-7.7 [facility] Neutrophils/100 WBC (Bld) 90.8 % 47-70 [facility] Potassium [Moles/Vol] 3.6 mmol/L 3.5-5.1 [facility] Sodium [Moles/Vol] 139 mmol/L 136-145 [facility] WBC (Bld) [#/Vol] 18.0 10*3/uL 4.4-11.0 [facility] Bilirubin Test strip Ql (U)O rdered By: Nima Rosario on 06-20-2023 Bilirubin Ql (U) Negative Negative [facility] Determination of erythrocyte mean corpuscular volume (MCV)Ordered By: Nima Rosario on 06-20-2023 MCV (RBC) [Entitic vol] 84.6 fL 81-99 [facility] Erythrocyte distribution wid th ratioOrdered By: Nima Rosario on 06-20-2023 Erythrocyte distribution width (RBC) [Ratio] 13.1 % 11.6-14.6 [facility] Erythrocyte distribution wid th standard deviationOrdered By: Nima Rosario on 06-20-2023 Erythrocyte distribution width (RBC) [Entitic vol] 39.5 fL 35.1-43.9 [facility] Hematocrit Auto (Bld) [Volum e fraction]Ordered By: Nima Rosario on 06-20-2023 Hematocrit (Bld) [Volume fraction] 42.4 % 37-47 [facility] Immature granulocytes/100 WB C Auto (Bld)Ordered By: Nima Rosario on 06-20-2023 Immature granulocytes/100 WBC (Bld) 0.400 % 0.0-0.9 [facility] Comment on above: IG% - Immature Granu locytes (promyelocytes, myelocytes and metamyelocytes) > 1% indicates that a LEFT SHIFT is Present. Ketones Test strip Ql (U)Ord ered By: Nima Rosario on 06-20-2023 Ketones Ql (U) 50 mg/dl Negative [facility] Laboratory - Chemistry and C hemistry - challengeOrdered By: Nima Rosario on 06-20-2023 CO2 [Moles/Vol] 27.0 mmol/L 21.0-32.0 [facility] Urea nitrogen/Creatinine [Mass ratio] 14.3 mg/mg 10-20 [facility] Laboratory - Hematology and Cell countsOrdered By: Nima Rosario on 06-20-2023 MCH (RBC) [Entitic mass] 28.7 pg 27.0-32.0 [facility] MCHC (RBC) [Mass/Vol] 34.0 g/dL 32-36 [facility] Nucleated RBC/100 WBC (Bld) [Ratio] 0 % 0-5 [facility] Platelet mean volume (Bld) [Entitic vol] 10.4 fL 6.2-12.0 [facility] Platelets (Bld) [#/Vol] 336 10*3/uL 150-450 [facility] Mucus LM Ql (Urine sed)Order ed By: Nima Rosario on 06-20-2023 Mucus Ql (Urine sed) 0 SEEN /hpf [facility] Nitrite Test strip Ql (U)Ord ered By: Nima Rosario on 06-20-2023 Nitrite Ql (U) Negative Negative [facility] No Panel InformationOrdered By: Nima Rosario on 06-20-2023 Urine RBC 5-10 SEEN /hpf 0-5 [facility] Estimated Creatinine Clearance Calc 96.87 ml/min [facility] Estimated GFR (MDRD) Amer 83 mL/min >60 [facility] Comment on above: GFR Calc Estimated GFR (MDRD) Non-Af Amer 68 mL/min >60 [facility] Comment on above: Non- GFR Calc Protein Test strip Ql (U)Ord ered By: Nima Rosario on 06-20-2023 Protein Ql (U) Negative Negative [facility] RBC Auto (Bld) [#/Vol]Ordere d By: Nima Rosario on 06-20-2023 RBC (Bld) [#/Vol] 5.01 10*6/uL 4.2-5.4 [facility] Serum or plasma calcium rohit urement (mass/volume)Ordered By: Nima Rosario on 06-20-2023 Calcium [Mass/Vol] 9.2 mg/dL 8.5-10.1 [facility] Serum or plasma choriogonado tropin detectionOrdered By: Nima Rosario on 06-20-2023 HCG ( test) Ql Negative [facility] Serum or plasma creatinine m easurement (mass/volume)Ordered By: Nima Rosario on 06-20-2023 Creatinine [Mass/Vol] 0.98 mg/dL 0.55-1.02 [facility] Comment on above: The validity of the calculated GFR & GFRAA in patients over 70 years has not been determined. Clinical correlation is essential. Serum or plasma urea nitroge n measurement (mass/volume)Ordered By: Nima Rosario on 06-20-2023 Urea nitrogen [Mass/Vol] 14 mg/dL 7-18 [facility] Squamous epithelial cells de tection in urine sediment by light microscopyOrdered By: Nima Rosario on 06-20-2023 Epithelial cells.squamous LM Ql (Urine sed) 0-5 SEEN /hpf 5-10 [facility] Thin prep Papanicolaou smear with manual screeningOrdered By: Nima Rosario on 06-20-2023 Thin prep Papanicolaou smear with manual screening 6 5-15 [facility] Urine blood detectionOrdered By: Nima Rosario on 06-20-2023 RBC Ql (U) 150 /ul Negative [facility] Urine clarityOrdered By: Janee Rosario on 06-20-2023 Clarity (U) Clear Clear [facility] Urine color determinationOrd ered By: Nima Rosario on 06-20-2023 Color (U) Straw Yellow [facility] Urine glucose detectionOrder ed By: Nima Rosario on 06-20-2023 Glucose Ql (U) Normal mg/dl Normal [facility] Urine leukocyte esterase det ection by dipstickOrdered By: Nima Rosario on 06-20-2023 Leukocyte esterase Test strip Ql (U) Negative Negative [facility] Urine pHOrdered By: Nima michel on 06-20-2023 pH (U) 7.0 [pH] 5.0 - 8.0 [facility] Urine sediment bacteria coun t by microscopy (number/high power field)Ordered By: Nima Rosario on 06-20-2023 Bacteria LM.HPF (Urine sed) [#/Area] RARE /hpf None Seen [facility] Urine specific gravity measu rementOrdered By: Nima Rosario on 06-20-2023 Specific gravity (U) [Rel density] 1.010 1.002-1.030 [facility] Urine urobilinogen measureme ntOrdered By: Nima Rosario on 06-20-2023 Urobilinogen Ql (U) Normal mg/dl Normal [facility] Absolute lymphocyte countOrd ered By: Nima Rosario on 06-18-2023 Lymphocytes Auto (Unsp spec) [#/Vol] 1.64 10*3/uL 0.83-4.51 [facility] Automated lymphocyte count a s percentage of total leukocytesOrdered By: Nima Rosario on 06-18-2023 Lymphocytes/100 WBC Auto (Unsp spec) 12.6 % 19-41 [facility] Basophil percentageOrdered B y: Nima Rosario on 06-18-2023 Basophil percentage 0-5 SEEN /hpf 0-5 [facility] Basophils/100 WBC (Bld) 0.4 % 0-1 [facility] Chloride [Moles/Vol] 106 mmol/L 98-107 [facility] Eosinophils/100 WBC (Bld) 0.4 % 0-5 [facility] Glucose [Mass/Vol] 105 mg/dL 74-106 [facility] Comment on above: Fasting Glucose resu lt from 100 to 125 mg/dL suggests IMPAIRED HOMEOSTASIS per A.D.A. criteria. Hemoglobin (Bld) [Mass/Vol] 13.8 g/dL 12.0-15.0 [facility] Monocytes/100 WBC (Bld) 4.2 % 0-10 [facility] Neutrophils (Bld) [#/Vol] 10.7 10*3/uL 2.0-7.7 [facility] Neutrophils/100 WBC (Bld) 82.1 % 47-70 [facility] Potassium [Moles/Vol] 3.8 mmol/L 3.5-5.1 [facility] Comment on above: Slight Hemolysis, Re sult may be falsely increased. Sodium [Moles/Vol] 140 mmol/L 136-145 [facility] WBC (Bld) [#/Vol] 13.0 10*3/uL 4.4-11.0 [facility] Bilirubin Test strip Ql (U)O rdered By: Nima Rosario on 06-18-2023 Bilirubin Ql (U) Negative Negative [facility] Determination of erythrocyte mean corpuscular volume (MCV)Ordered By: Nima Rosario on 06-18-2023 MCV (RBC) [Entitic vol] 85.6 fL 81-99 [facility] Erythrocyte distribution wid th ratioOrdered By: Nima Rosario on 06-18-2023 Erythrocyte distribution width (RBC) [Ratio] 13.1 % 11.6-14.6 [facility] Erythrocyte distribution wid th standard deviationOrdered By: Nima Rosario on 06-18-2023 Erythrocyte distribution width (RBC) [Entitic vol] 40.1 fL 35.1-43.9 [facility] Hematocrit Auto (Bld) [Volum e fraction]Ordered By: Nima Rosario on 06-18-2023 Hematocrit (Bld) [Volume fraction] 41.0 % 37-47 [facility] Immature granulocytes/100 WB C Auto (Bld)Ordered By: Nima Rosario on 06-18-2023 Immature granulocytes/100 WBC (Bld) 0.300 % 0.0-0.9 [facility] Comment on above: IG% - Immature Granu locytes (promyelocytes, myelocytes and metamyelocytes) > 1% indicates that a LEFT SHIFT is Present. Ketones Test strip Ql (U)Ord ered By: Nima Rosario on 06-18-2023 Ketones Ql (U) 150 mg/dl Negative [facility] Comment on above: CRITICAL VALUE VERIF IED. CALLED TO FEDERICO YOUNG RN [id number] Joaquin Escudero.RESULTS READ BACK BY SAME . CRITICAL VALUE *HPrevious reported result: 150 mg/dlEdited by: SAMMI on 06/18/23:2000 Laboratory - Chemistry and C hemistry - challengeOrdered By: Nima Rosario on 06-18-2023 CO2 [Moles/Vol] 25.0 mmol/L 21.0-32.0 [facility] Urea nitrogen/Creatinine [Mass ratio] 14.1 mg/mg 10-20 [facility] Laboratory - Hematology and Cell countsOrdered By: Nima Rosario on 06-18-2023 MCH (RBC) [Entitic mass] 28.8 pg 27.0-32.0 [facility] MCHC (RBC) [Mass/Vol] 33.7 g/dL 32-36 [facility] Nucleated RBC/100 WBC (Bld) [Ratio] 0 % 0-5 [facility] Platelet mean volume (Bld) [Entitic vol] 10.5 fL 6.2-12.0 [facility] Platelets (Bld) [#/Vol] 311 10*3/uL 150-450 [facility] Mucus LM Ql (Urine sed)Order ed By: Nima Rosario on 06-18-2023 Mucus Ql (Urine sed) 0 SEEN /hpf [facility] Nitrite Test strip Ql (U)Ord ered By: Nima Rosario on 06-18-2023 Nitrite Ql (U) Negative Negative [facility] No Panel InformationOrdered By: Nima Rosario on 06-18-2023 Urine RBC > 100 SEEN /hpf 0-5 [facility] Estimated Creatinine Clearance Calc 110.10 ml/min [facility] Estimated GFR (MDRD) Amer 97 mL/min >60 [facility] Comment on above: GFR Calc Estimated GFR (MDRD) Non-Af Amer 80 mL/min >60 [facility] Comment on above: Non- GFR Calc Protein Test strip Ql (U)Ord ered By: Nima Rosario on 06-18-2023 Protein Ql (U) 30 mg/dl Negative [facility] RBC Auto (Bld) [#/Vol]Ordere d By: Nima Rosario on 06-18-2023 RBC (Bld) [#/Vol] 4.79 10*6/uL 4.2-5.4 [facility] Serum or plasma calcium rohit urement (mass/volume)Ordered By: Nima Rosario on 06-18-2023 Calcium [Mass/Vol] 9.1 mg/dL 8.5-10.1 [facility] Serum or plasma choriogonado tropin detectionOrdered By: Nima Rosario on 06-18-2023 HCG ( test) Ql Negative [facility] Serum or plasma creatinine m easurement (mass/volume)Ordered By: Nima Rosario on 06-18-2023 Creatinine [Mass/Vol] 0.85 mg/dL 0.55-1.02 [facility] Comment on above: The validity of the calculated GFR & GFRAA in patients over 70 years has not been determined. Clinical correlation is essential. Serum or plasma urea nitroge n measurement (mass/volume)Ordered By: Nmia Rosario on 06-18-2023 Urea nitrogen [Mass/Vol] 12 mg/dL 7-18 [facility] Squamous epithelial cells de tection in urine sediment by light microscopyOrdered By: Nima Rosario on 06-18-2023 Epithelial cells.squamous LM Ql (Urine sed) 0-5 SEEN /hpf 5-10 [facility] Thin prep Papanicolaou smear with manual screeningOrdered By: Nima Rosario on 06-18-2023 Thin prep Papanicolaou smear with manual screening 9 5-15 [facility] Urine blood detectionOrdered By: Nima Rosario on 06-18-2023 RBC Ql (U) 250 /ul Negative [facility] Urine clarityOrdered By: Janee Rosario on 06-18-2023 Clarity (U) Sl. Cloudy Clear [facility] Urine color determinationOrd ered By: Nima Rosario on 06-18-2023 Color (U) Yellow Yellow [facility] Urine glucose detectionOrder ed By: Nima Rosario on 06-18-2023 Glucose Ql (U) Normal mg/dl Normal [facility] Urine leukocyte esterase det ection by dipstickOrdered By: Nima Rosario on 06-18-2023 Leukocyte esterase Test strip Ql (U) 25 /ul Negative [facility] Urine pHOrdered By: Nima michel on 06-18-2023 pH (U) 6.5 [pH] 5.0 - 8.0 [facility] Urine sediment bacteria coun t by microscopy (number/high power field)Ordered By: Nima Rosario on 06-18-2023 Bacteria LM.HPF (Urine sed) [#/Area] 0 /[HPF] None Seen [facility] Urine specific gravity measu rementOrdered By: Nima Rosario on 06-18-2023 Specific gravity (U) [Rel density] 1.020 1.002-1.030 [facility] Urine urobilinogen measureme ntOrdered By: Nima Rosario on 06-18-2023 Urobilinogen Ql (U) 1 mg/dl Normal [facility] Qualitative QuantiFERON-TB g old in tube testOrdered By: Landen Truong on 05-30-2023 M. tuberculosis tuberculin stim IFN-g Ql (Bld) 0.01 IU/mL . [facility] Serum hepatitis B virus core antibody detectionOrdered By: Landen Truong on 05-30-2023 HBV core Ab Ql (S) Negative Negative [facility] Comment on above: Performed at: [address] Director: Wiley Carrillo PhD, Phone: [phone] Thin prep Papanicolaou smear with manual screeningOrdered By: Landen Truong on 05-30-2023 Thin prep Papanicolaou smear with manual screening Comment . [facility] Comment on above: QuantiFERON-TB Gold Plus is [...] smear with manual screening 0.01 IU/mL . [facility] Thin prep Papanicolaou smear with manual screening 0 IU/mL . [facility] Thin prep Papanicolaou smear with manual screening > 10.00 IU/mL . [facility] Thin prep Papanicolaou smear with manual screening Negative Negative [facility] Comment on above: No response to M [...] Auto (Unsp spec) [#/Vol] 2.56 10*3/uL 0.83-4.51 [facility] Basophil percentageOrdered B y: Juanita Logan on 01-16-2023 Basophils/100 WBC (Bld) 0.7 % 0-1 [facility] Eosinophils/100 WBC (Bld) 1.5 % 0-5 [facility] Neutrophils (Bld) [#/Vol] 8.8 10*3/uL 2.0-7.7 [facility] Neutrophils/100 WBC (Bld) 71.5 % 47-70 [facility] WBC (Bld) [#/Vol] 12.3 10*3/uL 4.4-11.0 [facility] Blood erythrocytes count (nu mber/volume)Ordered By: Juanita Logan on 01-16-2023 RBC (Bld) [#/Vol] 4.63 10*6/uL 4.2-5.4 [facility] Blood hemoglobin measurement (mass/volume)Ordered By: Juanita Logan on 01-16-2023 Hemoglobin (Bld) [Mass/Vol] 13.0 g/dL 12.0-15.0 [facility] Blood lymphocytes/100 leukoc ytesOrdered By: Juanita Logan on 01-16-2023 Lymphocytes/100 WBC (Bld) 20.9 % 19-41 [facility] Blood monocytes/100 leukocyt esOrdered By: Juanita Logan on 01-16-2023 Monocytes/100 WBC (Bld) 4.9 % 0-10 [facility] Blood platelet mean volumeOr dered By: Juanita Logan on 01-16-2023 Platelet mean volume (Bld) [Entitic vol] 10.5 fL 6.2-12.0 [facility] Determination of erythrocyte mean corpuscular volume (MCV)Ordered By: Juanita Logan on 01-16-2023 MCV (RBC) [Entitic vol] 86.6 fL 81-99 [facility] Hematocrit Auto (Bld) [Volum e fraction]Ordered By: Juanita Logan on 01-16-2023 Hematocrit (Bld) [Volume fraction] 40.1 % 37-47 [facility] Laboratory - Chemistry and C hemistry - challengeOrdered By: Juanita Logan on 01-16-2023 Free T4 [Mass/Vol] 1.03 ng/dL 0.76-1.46 [facility] Laboratory - Hematology and Cell countsOrdered By: Juanita Logan on 01-16-2023 Erythrocyte distribution width (RBC) [Entitic vol] 40.7 fL 35.1-43.9 [facility] Erythrocyte distribution width (RBC) [Ratio] 13.2 % 11.6-14.6 [facility] Immature granulocytes/100 WBC (Bld) 0.500 % 0.0-0.9 [facility] Comment on above: IG% - Immature Granu locytes (promyelocytes, myelocytes and metamyelocytes) > 1% indicates that a LEFT SHIFT is Present. MCH (RBC) [Entitic mass] 28.1 pg 27.0-32.0 [facility] Nucleated RBC/100 WBC (Bld) [Ratio] 0 % 0-5 [facility] MCHC Auto (RBC) [Mass/Vol]Or dered By: Juanita Logan on 01-16-2023 MCHC (RBC) [Mass/Vol] 32.4 g/dL 32-36 [facility] No Panel InformationOrdered By: Juanita Logan on 01-16-2023 Free Triiodothyronine (T3) pg/dL 2.7 pg/mL 2.18-3.98 [facility] Thyroid Stimulating Hormone (TSH) 5.25 uIU/mL 0.358-3.74 [facility] Vitamin D 25-Hydroxy 30.9 ng/mL [facility] Comment on above: Vitamin D 25(OH) Sta tus Range Deficiency <20 ng/mL (50nmol/L) Insufficiency 20 - 30 ng/mL (50 - 75 nmol/L) Sufficiency 30 - 100 ng/mL (75 - 250 nmol/L) Toxicity >100 ng/mL (>250 nmol/L) Platelets bldOrdered By: Morgan Logan on 01-16-2023 Platelets (Bld) [#/Vol] 379 10*3/uL 150-450 [facility] Absolute lymphocyte countOrd ered By: Juanita Logan on 11-30-2022 Lymphocytes Auto (Unsp spec) [#/Vol] 2.37 10*3/uL 0.83-4.51 [facility] Basophil percentageOrdered B y: Juanita Logan on 11-30-2022 Basophils/100 WBC (Bld) 0.5 % 0-1 [facility] Chloride [Moles/Vol] 107 mmol/L 98-107 [facility] Cholesterol [Mass/Vol] 200 mg/dL <200 [facility] Comment on above: <200 mg/dL Desirable 200-240 mg/dL Borderline >240 mg/dL High Risk Eosinophils/100 WBC (Bld) 2.0 % 0-5 [facility] Glucose [Mass/Vol] 101 mg/dL 74-106 [facility] Comment on above: Fasting Glucose resu lt from 100 to 125 mg/dL suggests IMPAIRED HOMEOSTASIS per A.D.A. criteria. Neutrophils (Bld) [#/Vol] 7.8 10*3/uL 2.0-7.7 [facility] Neutrophils/100 WBC (Bld) 69.4 % 47-70 [facility] Potassium [Moles/Vol] 4.0 mmol/L 3.5-5.1 [facility] Sodium [Moles/Vol] 136 mmol/L 136-145 [facility] Triglyceride [Mass/Vol] 92 mg/dL <199 [facility] Comment on above: The drugs N-Acetylcy steine and Metamizole may falsely depress this assay.Serum Triglycerides Reference Interval Normal <150 mg/dL Borderline high 150 - 199 mg/dL High 200 - 499 mg/dL Very High > or = 500 mg/dL WBC (Bld) [#/Vol] 11.2 10*3/uL 4.4-11.0 [facility] Blood erythrocytes count (nu mber/volume)Ordered By: Juanita Logan on 11-30-2022 RBC (Bld) [#/Vol] 4.99 10*6/uL 4.2-5.4 [facility] Blood hemoglobin measurement (mass/volume)Ordered By: Juanita Logan on 11-30-2022 Hemoglobin (Bld) [Mass/Vol] 14.0 g/dL 12.0-15.0 [facility] Blood lymphocytes/100 leukoc ytesOrdered By: Juanita Logan on 11-30-2022 Lymphocytes/100 WBC (Bld) 21.1 % 19-41 [facility] Blood monocytes/100 leukocyt esOrdered By: Juanita Logan on 11-30-2022 Monocytes/100 WBC (Bld) 6.2 % 0-10 [facility] Blood platelet mean volumeOr dered By: Juanita Logan on 11-30-2022 Platelet mean volume (Bld) [Entitic vol] 10.8 fL 6.2-12.0 [facility] Determination of erythrocyte mean corpuscular volume (MCV)Ordered By: Juanita Logan on 11-30-2022 MCV (RBC) [Entitic vol] 87.4 fL 81-99 [facility] Hematocrit Auto (Bld) [Volum e fraction]Ordered By: Juanita Logan on 11-30-2022 Hematocrit (Bld) [Volume fraction] 43.6 % 37-47 [facility] Laboratory - Chemistry and C hemistry - challengeOrdered By: Juanita Logan on 11-30-2022 CO2 [Moles/Vol] 25.0 mmol/L 21.0-32.0 [facility] Free T4 [Mass/Vol] 1.04 ng/dL 0.76-1.46 [facility] Urea nitrogen/Creatinine [Mass ratio] 16.6 mg/mg 10-20 [facility] Laboratory - Hematology and Cell countsOrdered By: Juanita Logan on 11-30-2022 Erythrocyte distribution width (RBC) [Entitic vol] 41.7 fL 35.1-43.9 [facility] Erythrocyte distribution width (RBC) [Ratio] 13.2 % 11.6-14.6 [facility] Immature granulocytes/100 WBC (Bld) 0.800 % 0.0-0.9 [facility] Comment on above: IG% - Immature Granu locytes (promyelocytes, myelocytes and metamyelocytes) > 1% indicates that a LEFT SHIFT is Present. MCH (RBC) [Entitic mass] 28.1 pg 27.0-32.0 [facility] Nucleated RBC/100 WBC (Bld) [Ratio] 0 % 0-5 [facility] MCHC Auto (RBC) [Mass/Vol]Or dered By: Juanita Logan on 11-30-2022 MCHC (RBC) [Mass/Vol] 32.1 g/dL 32-36 [facility] No Panel InformationOrdered By: Juanita Logan on 11-30-2022 Estimated GFR (MDRD) Amer 118 mL/min >60 [facility] Comment on above: GFR Calc Estimated GFR (MDRD) Non-Af Amer 97 mL/min >60 [facility] Comment on above: Non- GFR Calc Thyroid Stimulating Hormone (TSH) 6.47 uIU/mL 0.358-3.74 [facility] Vitamin D 25-Hydroxy 15.8 ng/mL [facility] Comment on above: Vitamin D 25(OH) Sta tus Range Deficiency <20 ng/mL (50nmol/L) Insufficiency 20 - 30 ng/mL (50 - 75 nmol/L) Sufficiency 30 - 100 ng/mL (75 - 250 nmol/L) Toxicity >100 ng/mL (>250 nmol/L) Platelets bldOrdered By: Morgan Logan on 11-30-2022 Platelets (Bld) [#/Vol] 349 10*3/uL 150-450 [facility] Serum or plasma calcium rohit urement (mass/volume)Ordered By: Juanita Logan on 11-30-2022 Calcium [Mass/Vol] 8.6 mg/dL 8.5-10.1 [facility] Serum or plasma cholesterol in HDL measurement (mass/volume)Ordered By: Juanita Logan on 11-30-2022 Cholesterol in HDL [Mass/Vol] 48 mg/dL >40 [facility] Comment on above: The drugs N-Acetylcy steine and Metamizole may falsely depress this assay. Reference Range HDL <40 mg/dL Low HDL Cholesterol HDL >or= 60 mg/dL High HDL Cholesterol Serum or plasma cholesterol in VLDL measurement (mass/volume)Ordered By: Juanita Logan on 11-30-2022 Cholesterol in VLDL [Mass/Vol] 18 mg/dL 5-40 [facility] Serum or plasma creatinine m easurement (mass/volume)Ordered By: Juanita Logan on 11-30-2022 Creatinine [Mass/Vol] 0.72 mg/dL 0.55-1.02 [facility] Comment on above: The validity of the calculated GFR & GFRAA in patients over 70 years has not been determined. Clinical correlation is essential. Serum or plasma low density lipoprotein (LDL) cholesterol measurement (mass/volume)Ordered By: Juanita Logan on 11-30-2022 Cholesterol in LDL [Mass/Vol] 134 mg/dL 0-130 [facility] Serum or plasma urea nitroge n measurement (mass/volume)Ordered By: Juantia Logan on 11-30-2022 Urea nitrogen [Mass/Vol] 12 mg/dL 7-18 [facility] Thin prep Papanicolaou smear with manual screeningOrdered By: Juanita Logan on 11-30-2022 Thin prep Papanicolaou smear with manual screening 4 5-15 [facility] Whole blood hemoglobin A1c/t otal hemoglobin ratio (mass fraction)Ordered By: Juanita Logan on 11-30-2022 HbA1c (Bld) [Mass fraction] 5.0 % 3.8-5.6 [facility] Comment on above: Normal < 5.7 % Predi abetic 5.7 - 6.4 % Diabetic >or= 6.5 % Please note range changes. Qualitative QuantiFERON-TB g old in tube teston 02-21-2022 M. tuberculosis tuberculin stim IFN-g Ql (Bld) 0.02 IU/mL . [facility] Work Phone: Serum hepatitis B virus core antibody detectionon 02-21-2022 HBV core Ab Ql (S) Negative Negative [facility] Work Phone: Comment on above: Performed at: [address] [id number] Director: Wiley Carrillo PhD, Phone: [phone] Thin prep Papanicolaou smear with manual screeningon 02-21-2022 Thin prep Papanicolaou smear with manual screening Comment . [facility] Work Phone: Comment on above: QuantiFERON-TB Gold [...] smear with manual screening 0.01 IU/mL . [facility] Work Phone: Thin prep Papanicolaou smear with manual screening 0.02 IU/mL . [facility] Work Phone: Thin prep Papanicolaou smear with manual screening > 10.00 IU/mL . [facility] Work Phone: Thin prep Papanicolaou smear with manual screening Negative Negative [facility] Work Phone: Comment on above: No response [...] percentageon 2021 Chloride [Moles/Vol] 105 mmol/L 98-107 [facility] Work Phone: Cholesterol [Mass/Vol] 210 mg/dL <200 [facility] Work Phone: Comment on above: <200 mg/dL Desirable 200-240 mg/dL Borderline >240 mg/dL High Risk Glucose [Mass/Vol] 111 mg/dL 74-106 [facility] Work Phone: Comment on above: Fasting Glucose resu lt from 100 to 125 mg/dL suggests IMPAIRED HOMEOSTASIS per A.D.A. criteria. Potassium [Moles/Vol] 3.9 mmol/L 3.5-5.[facility]: Sodium [Moles/Vol] 137 mmol/L 136-145 [facility] Work Phone: Triglyceride [Mass/Vol] 115 mg/dL <199 [facility] Work Phone: Comment on above: The drugs N-Acetylcy steine and Metamizole may falsely depress this assay.Serum Triglycerides Reference Interval Normal <150 mg/dL Borderline high 150 - 199 mg/dL High 200 - 499 mg/dL Very High > or = 500 mg/dL Laboratory - Chemistry and C hemistry - challengeon 06-01-2021 CO2 [Moles/Vol] 26.0 mmol/L 21.0-32.0 [facility] Work Phone: Urea nitrogen/Creatinine [Mass ratio] 13.8 mg/mg 10-20 [facility] Work Phone: No Panel Informationon 06-01 Estimated GFR (MDRD) Amer 118 mL/min >60 [facility] Work Phone: Comment on above: GFR Calc Estimated GFR (MDRD) Non-Af Amer 98 mL/min >60 [facility] Work Phone: Comment on above: Non- GFR Calc Thyroid Stimulating Hormone (TSH) 3.26 uIU/mL 0.358-3.74 [facility] Work Phone: Serum or plasma calcium rohit urement (mass/volume)on 06-01-2021 Calcium [Mass/Vol] 8.7 mg/dL 8.5-10.1 [facility] Work Phone: Serum or plasma cholesterol in HDL measurement (mass/volume)on 06-01-2021 Cholesterol in HDL [Mass/Vol] 48 mg/dL >40 [facility] Work Phone: Comment on above: The drugs N-Acetylcy steine and Metamizole may falsely depress this assay. Reference Range HDL <40 mg/dL Low HDL Cholesterol HDL >or= 60 mg/dL High HDL Cholesterol Serum or plasma cholesterol in VLDL measurement (mass/volume)on 06-01-2021 Cholesterol in VLDL [Mass/Vol] 23 mg/dL 5-40 [facility] Work Phone: Serum or plasma cortisol kurt surement (mass/volume)on 06-01-2021 Cortisol [Mass/Vol] 16.00 ug/dL 3.44-22.45 [facility] Work Phone: Comment on above: Adult (AM) 5.27 - 22 .45 ug/dL Adult (PM) 3.44 - 16.76 ug/dLPlease note revised CORTISOL reference range effective 2019. Serum or plasma creatinine m easurement (mass/volume)on 06-01-2021 Creatinine [Mass/Vol] 0.73 mg/dL 0.55-1.02 [facility] Work Phone: Comment on above: The validity of the calculated GFR & GFRAA in patients over 70 years has not been determined. Clinical correlation is essential. Serum or plasma low density lipoprotein (LDL) cholesterol measurement (mass/volume)on 06-01-2021 Cholesterol in LDL [Mass/Vol] 139 mg/dL 0-130 [facility] Work Phone: Serum or plasma urea nitroge n measurement (mass/volume)on 06-01-2021 Urea nitrogen [Mass/Vol] 10 mg/dL 7-18 [facility] Work Phone: Thin prep Papanicolaou smear with manual screeningon 06-01-2021 Thin prep Papanicolaou smear with manual screening 6 5-15 [facility] Work Phone: Vital Signs Date Time Vital Sign Value Performing Clinician Facility 09-07-2024 09:51-0400 Body mass index (BMI) [Ratio] 31.17 kg/m2 Hi Moomaw 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 Work Phone: [facility] 09-07-2024 09:51-0400 Body temperature 98.4 [degF] Hi Moomaw 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 Work Phone: [facility] 09-07-2024 09:51-0400 Body weight 87.6 kg Hi Moomaw 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 Work Phone: [facility] 09-07-2024 09:51-0400 Diastolic blood pressure 82 mm[Hg] Hi Moomaw 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 Work Phone: [facility] 09-07-2024 09:51-0400 Heart rate 79 /min Hi Moomaw 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 Work Phone: [facility] 09-07-2024 09:51-0400 Respiratory rate 18 /min Hi Moomaw 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 Work Phone: [facility] 09-07-2024 09:51-0400 SaO2% (BldA) [Mass fraction] 100 % Hi Moomaw 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 Work Phone: [facility] 09-07-2024 09:51-0400 Systolic blood pressure 132 mm[Hg] Hi Moomaw 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 Work Phone: [facility] 08-02-2024 09:48-0400 Body height 167.6 cm 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 Work Phone: [facility] 08-02-2024 09:48-0400 Body mass index (BMI) [Ratio] 30.32 kg/m2 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 Work Phone: [facility] 08-02-2024 09:48-0400 Body temperature 99.3 [degF] Yamilex Call 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 Work Phone: [facility] 08-02-2024 09:48-0400 Body weight 85.2 kg Yamilex Callow 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 Work Phone: [facility] 08-02-2024 09:48-0400 Diastolic blood pressure 82 mm[Hg] Yamilex Callow 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 Work Phone: [facility] 08-02-2024 09:48-0400 Heart rate 90 /min Yamilex Callow 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 Work Phone: [facility] 08-02-2024 09:48-0400 Respiratory rate 12 /min Yamilex Callow 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 Work Phone: [facility] 08-02-2024 09:48-0400 SaO2% (BldA) [Mass fraction] 98 % Yamilex Callow 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 Work Phone: [facility] 08-02-2024 09:48-0400 Systolic blood pressure 122 mm[Hg] Yamilex Callow 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 Work Phone: [facility] 07-14-2023 14:06-0400 Body temperature 98.71 [degF] Estrada Evans MD Work Phone: [facility] 07-14-2023 14:06-0400 Body weight 99.7 kg Estrada Evans MD Work Phone: [facility] 07-14-2023 14:06-0400 Diastolic blood pressure 72 mm[Hg] Estrada Evans MD Work Phone: [facility] 07-14-2023 14:06-0400 Heart rate 94 /min Estrada Evans MD Work Phone: [facility] 07-14-2023 14:06-0400 Respiratory rate 16 /min Estrada Evans MD Work Phone: [facility] 07-14-2023 14:06-0400 SaO2% (BldA) [Mass fraction] 98 % Estrada Evans MD Work Phone: [facility] 07-14-2023 14:06-0400 Systolic blood pressure 134 mm[Hg] Estrada Evans MD Work Phone: [facility] 06-22-2023 13:31-0400 Body temperature 97 [degF] Krislyn Aberegg PA Work Phone: [facility] 06-22-2023 13:31-0400 Body weight 102.7 kg Krislyn Aberegg PA Work Phone: [facility] 06-22-2023 13:31-0400 Diastolic blood pressure 78 mm[Hg] Krislyn Aberegg PA Work Phone: [facility] 06-22-2023 13:31-0400 Heart rate 88 /min Krislyn Aberegg PA Work Phone: [facility] 06-22-2023 13:31-0400 Respiratory rate 16 /min Krislyn Aberegg PA Work Phone: [facility] 06-22-2023 13:31-0400 SaO2% (BldA) [Mass fraction] 98 % Krislyn Aberegg PA Work Phone: [facility] 06-22-2023 13:31-0400 Systolic blood pressure 134 mm[Hg] Krislyn Aberegg PA Work Phone: [facility] 06-20-2023 23:55-0400 Body temperature 98.7 [degF] DO Juanita Desmond Work Phone: [facility] 06-20-2023 23:55-0400 Diastolic blood pressure 84 mm[Hg] DO Juanita Desmond Work Phone: [facility] 06-20-2023 23:55-0400 Heart rate 69 /min DO Juanita Desmond Work Phone: [facility] 06-20-2023 23:55-0400 Respiratory rate 16 /min DO Juanita Desmond Work Phone: [facility] 06-20-2023 23:55-0400 SaO2% (BldA) [Mass fraction] 100 % DO Juanita Desmond Work Phone: [facility] 06-20-2023 23:55-0400 Systolic blood pressure 133 mm[Hg] DO Juanitasherrill Damiconger Work Phone: [facility] 06-20-2023 19:46-0400 Body height 167.64 cm DO Juanita Desmond Work Phone: [facility] 06-20-2023 19:46-0400 Body mass index (BMI) [Ratio] 36.4 kg/m2 DO Juanita Desmond Work Phone: [facility] 06-20-2023 19:46-0400 Body weight 102.51 kg DO Juanita Desmond Work Phone: [facility] 06-18-2023 21:42-0400 Body temperature 97.2 [degF] DO Juanitasherrill Damiconger Work Phone: [facility] 06-18-2023 21:42-0400 Diastolic blood pressure 63 mm[Hg] DO Juanita Desmond Work Phone: [facility] 06-18-2023 21:42-0400 Heart rate 71 /min DO Juanita Desmond Work Phone: [facility] 06-18-2023 21:42-0400 Respiratory rate 16 /min DO Juanita Desmond Work Phone: [facility] 06-18-2023 21:42-0400 SaO2% (BldA) [Mass fraction] 99 % DO Juanita Desmond Work Phone: [facility] 06-18-2023 21:42-0400 Systolic blood pressure 124 mm[Hg] DO Juanita Desmond Work Phone: [facility] 06-18-2023 17:06-0400 Body height 167.64 cm DO Juanita Desmond Work Phone: [facility] 06-18-2023 17:06-0400 Body mass index (BMI) [Ratio] 35.5 kg/m2 DO Juanita Desmond Work Phone: [facility] 06-18-2023 17:06-0400 Body weight 99.79 kg DO Juanita Damiconger Work Phone: [facility] 05-15-2023 14:22-0500 Body height 167.64 cm DO Juanitasherrill Damiconger Work Phone: [facility] 05-15-2023 14:22-0500 Body mass index (BMI) [Ratio] 37.1 kg/m2 DO Juanitasherrill Damiconger Work Phone: [facility] 05-15-2023 14:22-0500 Body weight 104.32 kg DO Juanitasherrill Damiconger Work Phone: [facility] 05-15-2023 14:22-0500 Diastolic blood pressure 96 mm[Hg] DO Juanita Damiconger Work Phone: [facility] 05-15-2023 14:22-0500 Respiratory rate 18 /min DO Juanita Damiconger Work Phone: [facility] 05-15-2023 14:22-0500 Systolic blood pressure 145 mm[Hg] DO Juanita Damiconger Work Phone: [facility] 05-07-2023 09:33-0500 Body temperature 99 [degF] Latanya Athy PA-C Work Phone: [facility] 05-07-2023 09:33-0500 Body weight 106.41 kg Latanya Athy PA-C Work Phone: [facility] 05-07-2023 09:33-0500 Diastolic blood pressure 90 mm[Hg] Latanya Athy PA-C Work Phone: [facility] 05-07-2023 09:33-0500 Heart rate 85 /min Latanya Athy PA-C Work Phone: [facility] 05-07-2023 09:33-0500 Respiratory rate 21 /min Latanya Athy PA-C Work Phone: [facility] 05-07-2023 09:33-0500 SaO2% (BldA) [Mass fraction] 98 % Latanya Kirby PA-C Work Phone: [facility] 05-07-2023 09:33-0500 Systolic blood pressure 126 mm[Hg] Latanya Kirby PA-C Work Phone: [facility] 12-14-2021 17:55-0400 Body height 167.64 cm [facility] Work Phone: 12-14-2021 17:55-0400 Body weight 114.48 kg [facility] Work Phone: 09-11-2021 00:32-0400 Diastolic blood pressure 67 mm[Hg] [facility] Work Phone: 09-11-2021 00:32-0400 Heart rate 79 /min [facility] Work Phone: 09-11-2021 00:32-0400 Respiratory rate 18 /min [facility] Work Phone: 09-11-2021 00:32-0400 SaO2% (BldA) [Mass fraction] 95 % [facility] Work Phone: 09-11-2021 00:32-0400 Systolic blood pressure 138 mm[Hg] [facility] Work Phone: 09-10-2021 23:07-0400 Body height 167.64 cm [facility] Work Phone: 09-10-2021 23:07-0400 Body mass index (BMI) [Ratio] 40.8 kg/m2 [facility] Work Phone: 09-10-2021 23:07-0400 Body temperature 96.2 [degF] [facility] Work Phone: 09-10-2021 23:07-0400 Body weight 114.8 kg [facility] Work Phone: 07-13-2021 19:37-0400 Body height 170.18 cm [facility] Work Phone: 07-13-2021 19:37-0400 Body weight 113.94 kg [facility] Work Phone: Encounters Encounter Date Encounter Type Care Provider Facility Start: 09-08-2024 ambulatory Selwyn Nassar Facility :[facility] Start: 09-07-2024 End: 09-08-2024 Follow-up encounter 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 Work Phone: [facility] Start: 09-07-2024 End: 09-07-2024 Patient encounter procedure Hi Cummings 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 Work Phone: [facility] Comment on above: Urinary frequency (P rimary Dx) Start: 09-07-2024 End: 09-07-2024 ambulatory [facility] Facility:[facility] Start: 08-29-2024 ambulatory [facility] Facility:[facility] Start: 08-02-2024 End: 08-02-2024 ambulatory JUANITA LOGAN Facility:[facility] Start: 08-02-2024 End: 08-02-2024 Patient encounter procedure Yamilex Jaziel 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 Work Phone: [facility] Comment on above: Sore throat (Primary Dx) Start: 07-15-2024 End: 07-15-2024 ambulatory [facility] Facility:[facility] Start: 02-26-2024 End: 02-26-2024 ambulatory [facility] Facility:[facility] Start: 11-21-2023 End: 11-21-2023 [address] [place] Facility:[facility] Start: 07-16-2023 Telephone encounter Jesus dawn 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 Work Phone: [facility] Comment on above: Results Start: 07-14-2023 End: 07-14-2023 Patient encounter procedure Estrada Evans MD Work Phone: [facility] Comment on above: Urinary frequency (P rimary Dx); Renal calculus Start: 07-11-2023 End: 07-11-2023 ambulatory DO Juanita Logan Work Phone: [facility] Work Phone: Start: 07-11-2023 End: 07-11-2023 Patient encounter procedure DO Juanita Logan Work Phone: [facility] Work Phone: Start: 06-22-2023 End: 06-22-2023 Patient encounter procedure Yasmin FITZGERALD Work Phone: [facility] Comment on above: Sore throat (Primary Dx); Eustachian tube dysfunction, right Start: 06-20-2023 End: 06-20-2023 Emergency department patient visit DO Juanita Logan Work Phone: [facility] Work Phone: Start: 06-18-2023 End: 06-18-2023 Emergency department patient visit DO Juanita Logan Work Phone: [facility] Work Phone: Start: 05-30-2023 End: 05-30-2023 ambulatory DO Juanita Logan Work Phone: [facility] Work Phone: Start: 05-30-2023 End: 05-30-2023 Patient encounter procedure DO Juanita Logan Work Phone: [facility] Work Phone: Start: 05-16-2023 End: 05-16-2023 ambulatory DO Juanita Logan Work Phone: [facility] Work Phone: Start: 05-16-2023 End: 05-16-2023 Patient encounter procedure DO Juanita Logan Work Phone: [facility] Work Phone: Start: 05-15-2023 End: 05-15-2023 Patient encounter procedure DO Juanita Logan Work Phone: [facility] Work Phone: Start: 05-09-2023 End: 05-09-2023 Patient encounter procedure DO Juanita Logan Work Phone: [facility] Work Phone: Start: 05-07-2023 End: 05-07-2023 Patient encounter procedure Latanya Kirby PA-C Work Phone: [facility] Comment on above: Viral URI (Primary D x) Start: 01-16-2023 End: 01-16-2023 ambulatory [facility] Work Phone: Start: 01-16-2023 End: 01-16-2023 Patient encounter procedure [facility] Work Phone: Start: 11-30-2022 End: 11-30-2022 ambulatory [facility] Work Phone: Start: 11-30-2022 End: 11-30-2022 Patient encounter procedure [facility] Work Phone: Start: 02-21-2022 End: 02-21-2022 ambulatory [facility] Work Phone: Start: 02-21-2022 End: 02-21-2022 Patient encounter procedure [facility] Start: 12-14-2021 End: 12-16-2021 Discharged [facility] Start: 09-10-2021 End: 09-11-2021 Emergency department [facility] Start: 07-13-2021 End: 07-16-2021 Discharged [facility]ring [facility] Start: 06-01-2021 End: 06-01-2021 Patient encounter procedure [facility] Family Procedures Date Procedure Procedure Detail Performing Clinician Start: 09-07-2024 Urnls dip stick/tabl et rgnt auto w/o microscopy Felisa Jamil APRN.CNP Work Phone: Start: 08-02-2024 STREP A MOLECULAR (POC) Yamilex Sheriff 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 Work Phone: Start: 07-14-2023 Urnls dip stick/tabl et rgnt auto w/o microscopy Felisa Jamil 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 Work Phone: Start: 06-22-2023 STREP A MOLECULAR [...] Influenza vaccination Influenz a Vaccine (Season Ended) [facility] Start: 11-18-2023 Covid-19 Vaccine ( season) Covid-19 Vaccine ( season) [facility] Start: 11-18-2023 Influenza vaccination Influenz a Vaccine (Season Ended) [facility] Start: 06-20-2023 [facility] Start: 06-18-2023 [facility] Start: 03-19-2023 Behavioral Health Screening Behavioral Health Screening [facility] Start: 03-19-2023 Depression Assessment Depression Ass essment [facility] Start: 11-17-2022 Covid-19 Vaccine ( season) Covid-19 Vaccine ( season) [facility] Start: 11-17-2022 Influenza vaccination Influenza Vacc ine (#1) [facility] Start: 02-03-2018 Screening for malign ant neoplasm of cervix HPV Testing [facility] Start: 02-03-2009 Screening for malign ant neoplasm of cervix [facility] Start: 02-03-2007 Hepatitis B Vaccine (1 of 3 - 19+ 3-dose series) Hepatitis B Vaccine (1 of 3 - 19+ 3-dose series) [facility] Start: 02-03-2007 Urine microalbumin profile DTaP,Tdap,Td Vaccine (1 - Tdap) [facility] Start: 02-03-2006 Anxiety Screening Anxiety Screening [facility] Start: 02-03-2006 Depression Screening Depression Scre ening [facility] Start: 02-03-2006 Hepatitis C screening Hepatitis C Sc reening [facility] Start: 02-03-2006 HIV screening HIV Screening [facility] Start: 1990 Hepatitis B Vaccine (1 of 3 - 3-dose series) Hepatitis B Vaccine (1 of 3 - 3-dose series) [facility] Bacteria identified in Urine by Culture URINE CULTURE Microbiology Routine Urinary frequency 07/14/2023 2:31 PM EDT [facility] Work Phone: Bacteria identified in Urine by Culture BACTERIAL CULTURE, URINE Microbiology Routine Urinary frequency Ordered: 09/07/2024 [facility] Work Phone: Comment on above: Ordered: 09/07/2024 COVID & INFLUENZA A/ B & RSV NAAT, ROUTINE COVID & INFLUENZA A/B & RSV NAAT, ROUTINE Microbiology Routine Viral URI 05/07/2023 9:43 AM EST [facility] Work Phone: Patient Education [facility] Work Phone: Patient referral [facility] Work Phone: Thyroglobulin antibo dy measurement [facility] Thyroid stimulating immunoglobulins actual/normal in Serum [facility] Thyroperoxidase Ab [Units/volume] in Serum or Plasma [facility] Payers Date Payer Category Payer Self-pay [id number] 2016 [facility] BLUE CARD PPO OOS [id number] 2016 Unknown [employer] C[employer] PPO OOS [id number] 2016-Present [phone] [address] [place] [address] PPO [id number] 2016 Unknown [id number] 2015 Unknown [id number] Unknown [id number] Unknown [id number] Unknown [id number] Unknown [id number] Unknown [id number] Unknown [id number] Social History Date Type Detail Facility Start: 09-18-2019 End: 06-20-2023 Tobacco smoking status MDIS Unknown if ever smoked [facility] Start: 1990 Sex Assigned At Female [facility] Start: 05-07-2023 End: 08-02-2024 Tobacco smoking status NHIS Ex-smoker [facility] History of tobacco use Current smoker [facility] History of tobacco use Cigarette Smoker [facility] Start: 05-07-2023 End: 08-02-2024 Cigarettes smoked current (pack per day) - Reported 0.5 [facility] History of tobacco use Passive smoker [facility] Start: 05-07-2023 End: 08-02-2024 Tobacco use and exposure Smokeless tobacco non-user [facility] Start: 05-07-2023 End: 09-07-2024 Alcohol intake Current non-drinker of alcohol (finding) [facility] Start: 05-07-2023 End: 08-02-2024 Tobacco use panel [facility] Start: 1990 Sex Assigned At Not on file [facility] Clinical Notes 05-07-2023 to 09-08-2024 Telephone Encounter - Alycia Thornton APRN.CNP - 09/08/2024 1:13 PM EDTTelephone Encounter - Alycia Thornton APRN.CNP - 09/08/2024 1:13 PM EDTMHi jernigan APRN.CNP - 09/07/2024 10:00 AM EDT Note Date & Type Note Facility 09-08-2024 Telephone encount er Note Urine culture returns Mixed microbes Complete ATB Discussed that she needs to follow up related to the blood noted in her urine Verbalized understanding [facility] Work Phone: 09-08-2024 Miscellaneous Notes Formattin g of this note might be different from the original. Urine culture returns Mixed microbes Complete ATB Discussed that she needs to follow up related to the blood noted in her urine Verbalized understanding documented in this encounter [facility] 09-07-2024 Note HNO ID: [id number] Author: HI CUMMINGS APRN.CNP Service: ? Author Type: Nurse Practitioner Type: Progress Notes Filed: 09/07/2024 10:02 Note Text: This note was created using [employer]escent Healing[employer]. Ernestine Guevara is a 34 year old female. [...] Objective BP 132/82 Pulse 79 Temp 36.9 ?C (98.4 ?F) (Tympanic) Resp 18 Wt 87.6 kg (193 lb 2 oz) LMP 05/20/2023 (Approximate) SpO2 100% BMI 31.17 kg/m? Physical Exam Vitals and nursing note reviewed. [...] - BACTERIAL CULTURE, URINE - NITROFURANTOIN MONOHYDRATE AND MACROCRYSTAL 100 MG ORAL CAP Hi Cummings APRN.QUANTOMETER OPERATOR [facility] 09-07-2024 History of Presen t illness Narrative This note was created using [employer] Healing[employer]. Subjective Aston Guevara is a 34 year [...] MONOHYDRATE & MACROCRYSTAL 100 MG ORAL CAP Hi Cummings APRN.QUANTOMETER OPERATOR documented in this encounter [facility] 08-02-2024 Note HNO ID: [id number] Author: YAMILEX SHERIFF APRN.HEATH Service: ? Author Type: Nurse Practitioner Type: [...] days Rest Motrin as needed Yamilex Sheriff APRN.QUANTOMETER OPERATOR [facility] 08-02-2024 History of Presen t [...] days Rest Motrin as needed Yamilex Sheriff APRN.CNP documented in this encounter [facility] 07-16-2023 Telephone encount er Note Patient given results and verbalized understanding of instructions given. Molly Gonzalez MA [facility] 07-16-2023 Miscellaneous Notes Formattin g of this note might be different from the original. Patient given results and verbalized understanding of instructions given. Molly Gonzalez MA No bacterial infection noted on urine culture. Follow-up with PCP for reevaluation. Jesus Reilly APRN.CNP documented in this encounter [facility] 07-16-2023 Telephone encount er Note No bacterial infection noted on urine culture. Follow-up with PCP for reevaluation. Jesus Reilly APRN.HEATH [facility] Work Phone: 07-14-2023 History of Presen [...] Estrada Evans MD documented in this encounter [facility] 06-22-2023 History of Presen t illness Narrative This note was created using [employer]. Subjective Aston Guevara is a 33 year [...] evaluation. AMILCAR Chavez documented in this encounter [facility] 05-07-2023 History of Presen t illness Narrative This note was created using [employer]. Subjective Aston Guevara is a 33 year [...] & INFLUENZA A/B & RSV NAAT, ROUTINE Latanyadesmond Kirby PA-C documented in this encounter [facility] 05-07-2023 Instructions Latanya Kirby PA-C - 05/07/2023 9:41 AM EST May continue otc cold medications Flonase for nasal congestion If not better in one week be seen again documented in this encounter [facility] Evaluation note No assessment inform ation available [facility] Work Phone: Evaluation note Diagnosis Viral URI- Primary Acute upper respiratory infections of unspecified site [facility] Diagnosis Onset Date Resolution Status Breast mass, right acute [facility] Work Phone: Evaluation note* Diagnosis Urinary frequency- Primary Renal calculus Calculus of kidney [facility] Diagnosis Sore throat- Primary Acute pharyngitis Eustachian tube dysfunction, right [facility] note* Diagnosis Sore throat- Primary Acute ph[facility]itis [facility] Urinary frequency- Primary documented in this encounter [facility] Advance Directives No Advanced Directives Records Found Advance Directive Response Recorded Date/ Time Living Will No September 18, 2019 9 :55pm Power of Harvesting Manager No September 18, 2019 9:55pm Advance Directive Response Recorded Date/ Time Living Will No September 10, 2021 11:13pm Power of Harvesting Manager No September 10 11:13pm Advance Directive Response Recorded Date/ Time Living Will No September 10, 2021 10:13pm Power of Harvesting Manager No September 10 10:13pm Advance Directive Response Recorded Date/ Time Living Will No June 18, 2023 6:20pm Power of Harvesting Manager No June 17 4 6:20pm Advance Directive Response Recorded Date/ Time Living Will No June 20, 2023 9:06pm Power of Harvesting Manager No June 19 9:06pm Chief Complaint and [...] for Visit Breast mass, right Family History No Family History Records Found Relationship Condition Age at Onset Recorded Date/T [...] MD Primary Care Provider Activ e Juanita Logan DO Attending Provider Active Team Status: Active Member Role Status Dates Dr. Naeem Romero MD Family Provider Active Juanita Logan DO Primary Care Provider Active Team Status: Inactive Member Role Status Dates Juanita Logan DO Primary Care Provi dilan, Attending Provider, Referring Provider Active Refuse Collector Relationship Specialty Start Date End Date Juanita Logan DO [address] [place] [address] PCP - General Family Medicine 05/07/23 Team Status: Inactive Member Role Status Dates Juanita Logan , DO Primary Care Provider, Referring Provider Active Dr. Nadeem Sweet MD Attending Provider Active Team Status: Inactive Member Role Status Dates Juanita Logan , DO Primary Care Provider Active Dr. Nadeem Sweet MD Attending Provider, Referr ing Provider Active Team Status: Inactive Member Role Status Dates Juanita Logan , DO Primary Care Provider Active AMILCAR Mccarty Attending Provider, Referring Provi dilan Active Team Status: Inactive Member Role Status Dates Juanita Logan DO Primary Care Provider Active Dr. Nima Rosario , DO Emergency Provider Active Refuse Collector Relationship Specialty Start Date End Date Desmond Juanita Srikanth [address] [place] [facility] [address] [place] [address] PCP - General Family Medicine 05/07/23 Refuse Collector Relationship Specialty Start Date End Date DesmondJuantia agudelo SrikanthDO [address] [place] [address] [place] [address] PCP - General Family Medicine 05/07/23 Team Status: Active Member Role Status Dates Dr. Herbert Romero MD Family Provider Active Delilah Rosario MD Primary Care Provider Active Team Status: Inactive Member Role Status Dates Delilah Rosario MD Primary Care Provide r, Attending Provider, Referring Provider Active Team Status: Inactive Member Role Status Dates Juanita Logan DO Primary Care Provider Active Dr. Nima Rosario , DO Attending Provider, Emergency P jolie Active Refuse Collector Relationship Specialty Start Date End Date DesmondJuanita agudelo NeetuDO PCP - General Family Medicine 05/07/23 Refuse Collector Relationship Specialty Start Date End Date Delilah Rosario MD [address] [place] [address] PCP - General Internal Medicine 09/07/24 Refuse Collector Relationship Specialty Start Date End Date Delilah Rosario MD [address] [place] [address] PCP - General Internal Medicine 09/07/24 Source Comments (unrecognize d section and content) In the event this informatio n is protected by the Federal Confidentiality of Alcohol and Drug Abuse Patient Records regulations: The Federal rules restrict any use of the information to criminally investigate or prosecute any alcohol or drug abuse patient.[facility] the event this information is protected by the Federal Confidentiality of Alcohol and Drug Abuse Patient Records regulations: The Federal rules restrict any use of the information to criminally investigate or prosecute any alcohol or drug abuse patient.[facility] the event this information is protected by the Federal Confidentiality of Alcohol and Drug Abuse Patient Records regulations: The Federal rules restrict any use of the information to criminally investigate or prosecute any alcohol or drug abuse patient.[facility] the event this information is protected by the Federal Confidentiality of Alcohol and Drug Abuse Patient Records regulations: The Federal rules restrict any use of the information to criminally investigate or prosecute any alcohol or drug abuse patient.[facility] the event this information is protected by the Federal Confidentiality of Alcohol and Drug Abuse Patient Records regulations: The Federal rules restrict any use of the information to criminally investigate or prosecute any alcohol or drug abuse patient.[facility] the event this information is protected by the Federal Confidentiality of Alcohol and Drug Abuse Patient Records regulations: The Federal rules restrict any use of the information to criminally investigate or prosecute any alcohol or drug abuse patient.[facility] the event this information is protected by the Federal Confidentiality of Alcohol and Drug Abuse Patient Records regulations: The Federal rules restrict any use of the information to criminally investigate or prosecute any alcohol or drug abuse patient.[facility] Reason for Visit (unrecogniz ed section [...] ized section and content) DATE CREATED AUTHOR 09/08/2024 [facility] DATE CREATED AUTHOR AUTHOR'S ORGANIZ ATION 09/09/2024 [facility] FOR RECORDS PERTAINING TO PATIENTS WHO ARE [...] BE BASED ON THE PRIMARY CLINICAL RECORDS. [employer] [facility]. provides no warranty or guarantee of the accuracy or completeness of information in this document.
[2024-09-12 05:08] LABS: QNTFERON TB Mitogen Value 6.74 IU/mL (.); QNTFERON TB Nil Value 0.01 IU/mL (.); QNTFERON TB1+ Ag Value 0.03 IU/mL (.); QNTFERON TB2+ Ag Value 0.01 IU/mL (.); QNTIFERON TB Positive Criteria Negative (Negative)
== END | disposition home or self-care (01) ==
LOC: MTLAB 13:40
PROVIDERS: PCP Family Medicine; Referring Provider Physician Assistant; Visit Provider Physician Assistant
DX: L40.0 Psoriasis vulgaris (principal)
CPT/HCPCS: 36415; 86480

== ENCOUNTER → 2024-12-25 | Outpatient (CLI) | payer BC, SELFPAY ==
[2024-12-25 19:37] LABS: Vitamin D,25 Hydroxy 27.4 ng/mL (30-100)
== END | disposition home or self-care (01) ==
LOC: MFPLAB 15:12
PROVIDERS: PCP Family Medicine; Visit Provider Family Medicine
DX: E03.9 Hypothyroidism, unspecified (principal)
CPT/HCPCS: 36415; 82306; 84443

== ENCOUNTER → 2025-01-20 | Outpatient (CLI) | payer BC, SELFPAY ==
--- NOTE | 2025-01-20 17:01 | CT_ITS ---
PROCEDURE: CT/Sinus/Facial Bone
== END | disposition home or self-care (01) ==
LOC: CT 16:51
PROVIDERS: PCP Family Medicine; Referring Provider Otolaryngology Otolaryngology/Facial Plastic Surgery; Visit Provider Otolaryngology Otolaryngology/Facial Plastic Surgery
DX: J34.1 Cyst and mucocele of nose and nasal sinus (principal); J33.8 Other polyp of sinus
CPT/HCPCS: 70486